=== PATIENT | male | born 1960 | race Caucasian/White ===

== ENCOUNTER 2020-06-27 07:30 | Inpatient (IN) | payer SELFPAY ==
[~2020-06-27] VITALS: Ht 175.3 cm; Wt 71.4 kg
[~2020-06-27 07:30] MED LIST: ASPI-630 PO; ASPI325T8 PO; ATOR20TA58 PO; MULT-246 PO; OMEG1CAP6 PO; TRAM50TA PO
[2020-07-04] VITALS (9 sets, daily range): BP systolic 126–154; BP diastolic 54–65
[2020-07-04] MEDS ORDERED: HYDROmorphone 2 MG/ML VIAL IVP PRN (06:00)
[2020-07-04] MEDS ORDERED: HEPARIN SODIUM 5,000 UNIT in IV NORMAL SALINE 500ML BAG 500 ML IRR ONE (06:00)
[2020-07-04] MEDS ORDERED: fentaNYL PF VIAL 100 MCG/2 ML VIAL IVP PRN ×2 (06:00)
[2020-07-04] MEDS ORDERED: IV RINGERS,LACTATED 1000ML 1,000 ML IV SCH (06:00)
[2020-07-04] MEDS ORDERED: PROCHLORPERAZINE 10 MG/2 ML VIAL. IVP PRN (06:00)
[2020-07-04] MEDS ORDERED: MORPHINE SULFATE 2 MG/ML VIAL. IVP PRN (06:00)
[2020-07-04] MEDS ORDERED: PROPOFOL 10 MG/ML (20ML) VIAL. IV ONE (06:48)
[2020-07-04] MEDS ORDERED: LIDOCAINE 2% PF 5 ML VIAL. ONE (06:48)
[2020-07-04] MEDS ORDERED: fentaNYL PF VIAL 250 MCG/5 ML VIAL ONE ×2 (06:49→09:17)
[2020-07-04] MEDS ORDERED: ROCURONIUM 50 MG/5 ML VIAL. ONE ×3 (06:50→10:37)
[2020-07-04] MEDS ORDERED: MIDAZOLAM HCL/PF 2 MG/2 ML VIAL. ONE ×2 (07:02→07:10)
[2020-07-04] MEDS ORDERED: SURGICEL FIBRILLAR 1X2 EACH. ONE ×6 (07:05→12:32)
[2020-07-04 07:07] LABS: BASO # 0.1 x10^3/uL (0.0-0.2); BASO % 1 % (0-3); EOS # 0.1 x10^3/uL (0.0-0.7); EOS % 1 % (0-3); HEMATOCRIT 40.6 % (39.0-53.0); HEMOGLOBIN 13.5 g/dL (13.0-17.5); LYMPH # 2.8 x10^3/uL (1.0-4.8); LYMPH % 42 % (24-48); MEAN CORPUSCULAR HEMOGLOBIN 34 pg (25-35); MEAN CORPUSCULAR HGB CONC 33 g/dL (31-37); MEAN CORPUSCULAR VOLUME 101 fL (79-100); MONO # 0.8 x10^3/uL (0.0-1.1); MONO % 11 % (0-9); NEUT % 45 % (31-73); PLATELET COUNT 200 x10^3/uL (140-400); RED BLOOD COUNT 4.04 x10^6/uL (4.30-5.70); RED CELL DISTRIBUTION WIDTH 14.7 % (11.5-14.5); WHITE BLOOD COUNT 6.7 x10^3/uL (4.0-11.0)
[2020-07-04] MEDS ORDERED: LIDOCAINE 1% PF 2 ML VIAL. ONE (07:10)
[2020-07-04] MEDS ORDERED: ROPIVacaine 0.5% PF 20 ML VIAL. ONE ×2 (07:10→07:23)
[2020-07-04 07:14] LABS: CALCIUM 8.9 mg/dL (8.5-10.1); CREATININE 0.9 mg/dL (0.7-1.3); GFR 86.7; POTASSIUM 4.3 mmol/L (3.5-5.1)
[2020-07-04] MEDS ORDERED: HEPARIN SODIUM 10,000 UNIT/10 ML VIAL. ONE (07:15)
[2020-07-04 07:21] LABS: PROTHROMBIN TIME PATIENT 12.9 SEC (11.7-14.0)
[2020-07-04] MEDS ORDERED: IV NORMAL SALINE 1000ML BAG 1,000 ML IV SCH (07:30)
[2020-07-04] MEDS ORDERED: LABETALOL 20 MG/4 ML DISP.SYRIN. IVP PRN (07:30)
[2020-07-04] MEDS ORDERED: NALOXONE 0.4 MG/ML VIAL. IV PRN ×2 (07:30)
[2020-07-04] MEDS ORDERED: 0.9 % SODIUM CHLORIDE 10 ML DISP.SYRIN. IV PRN (07:30)
[2020-07-04] MEDS ORDERED: hydrALAZINE 20 MG/ML VIAL. IVP PRN (07:30)
[2020-07-04] MEDS ORDERED: PROCHLORPERAZINE 10 MG/2 ML VIAL. IV PRN (07:30)
[2020-07-04] MEDS ORDERED: ALBUMIN HUMAN 5% 500 ML IV ONE (08:13)
[2020-07-04] MEDS ORDERED: PHENYLEPHRINE 10 MG/ML VIAL. ONE (08:13)
[2020-07-04] MEDS ORDERED: SEVOFLURANE > 120 MINUTES. IH ONE (08:13)
[2020-07-04] MEDS ORDERED: GLYCOPYRROLATE 1 MG/5 ML VIAL. ONE (09:06)
[2020-07-04] MEDS ORDERED: NEOSTIGMINE METHYLSULFATE 5 MG/5 ML SYRINGE. ONE (11:20)
[2020-07-04] MEDS ORDERED: PROTAMINE 50 MG/5 ML VIAL. IV ONE ×2 (11:27→12:04)
[2020-07-04] MEDS ORDERED: HEPARIN for IV BOLUS 10,000 UNIT/10 ML VIAL. ONE (11:42)
[2020-07-04] MEDS ORDERED: ceFAZolin SODIUM IV Push 1 GM VIAL. IVP ONE (12:02)
--- NOTE | 2020-07-04 13:23 | PDOC ---
BRIEF OPERATIVE NOTE Date: Jul 04, 2020 Pre-Op Diagnosis Aorta iliac occlusive disease left leg ischemia Post-Op Diagnosis same Procedure Performed Aortobifemoral bypass with 16X8mm gortex graft Suprarenal clamp above right renal artery and left accessory artery Reimplantation of inferior mesenteric artery Right femoral endarterectomy Surgeon Dr. Kahn Supervisor Product Inspection Yohana Frausto NP Anesthesia Type: General Blood Loss 1680cc with 745 cell saver return Specimens Obtained none Findings Severe aortic stenosis with mural thrombus Complications none, stable to PACU Operative Note see dictated note for additional information YOHANA FRAUSTO APRN Jul 04, 2020 13:23
[2020-07-04 14:01] LABS: HEMATOCRIT 37.6 % (39.0-53.0); HEMOGLOBIN 12.4 g/dL (13.0-17.5); RED BLOOD COUNT 3.73 x10^6/uL (4.30-5.70); RED CELL DISTRIBUTION WIDTH 14.9 % (11.5-14.5); WHITE BLOOD COUNT 8.6 x10^3/uL (4.0-11.0)
--- NOTE | 2020-07-04 14:01 | RAD ---
XR CHEST 1V History: Reason: CENTRAL LINE PLACEMENT / Spl. Instructions: / History: Comparison: None. Technique: Portable AP chest radiograph. Findings: Tubes/lines: Right internal jugular central venous catheter tip terminates at the lower SVC. Enteric tube courses below the left hemidiaphragm off the margin of the radiograph. Lungs: Adequate inflation, no consolidation. Pleural Spaces: No effusion or pneumothorax. Cardiac Silhouette: Normal. Pulmonary Vasculature: Normal. Osseous Structures and Other: Surgical clips at the midline upper abdomen. Impression: 1. Tubes and lines as above. No pneumothorax. Electronically signed by: Colt Amor MD (07/04/2020 1:59 PM) [facility]
[2020-07-04] MEDS: IV NORMAL SALINE 1000ML BAG 1,000 ML IV SCH ×3 (14:10→20:49)
[2020-07-04 14:20] LABS: CALCIUM 7.1 mg/dL (8.5-10.1); GFR 76.7; POTASSIUM 4.6 mmol/L (3.5-5.1)
[2020-07-04 14:21] LABS: PROTHROMBIN TIME PATIENT 15.1 SEC (11.7-14.0)
[2020-07-04] MEDS ORDERED: MEPERIDINE PF 25 MG/ML VIAL. ONE (14:29)
--- NOTE | 2020-07-04 14:42 | OP ---
DATE OF SURGERY: 07/04/2020 SURGEON: Doreen Kahn MD SISAL OPERATOR: Mary Lanza APRN PREOPERATIVE DIAGNOSES: 1. 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 2. Completely thrombosed infrarenal abdominal aorta and small aortic aneurysm. 3. Right common femoral artery, severe atherosclerotic disease and stenosis. POSTOPERATIVE DIAGNOSES: 1. 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 2. Completely thrombosed infrarenal abdominal aorta and small aortic aneurysm. 3. Right common femoral artery, se OPERATIONS PERFORMED: 1. Infrarenal abdominal aortic to bifemoral artery bypass graft using a 16 x 8 mm Propaten PTFE graft. 2. Suprarenal clamping above the right renal artery and the left accessory renal artery was required for this bypass. 3. Right common femoral artery endarterectomy. 4. Reimplantation of the inferior mesenteric artery into the side of the PTFE graft. 5. The left groin was a redo exposure. BLOOD LOSS: 1630 with 745 mL of blood given back with Cell Saver. INDICATIONS: The patient is a 59-year-old male with a long history of severe peripheral arterial disease, who has previously undergone a left femoral endarterectomy with left leg thrombectomy and bilateral iliac artery stenting. He recently presented to the hospital with ischemic rest pain to his bilateral lower extremities. 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 He has severe disease throughout his right common and external iliac artery as well. He also has significant atherosclerotic disease of the right common femoral artery. The thrombosis of the abdominal aorta went all the way up to the level of the right renal artery. I recommend an aortic to bifemoral artery bypass graft. He will need likely suprarenal clamping for this bypass and likely right femoral endarterectomy, possible left femoral endarterectomy as well. Informed consent was obtained including the risks of bleeding, infection, bypass graft failure, need for revision in the future, possible worsening renal insufficiency because of the suprarenal clamping, possible bowel ischemia and possible need for further revascularization in the future. ANESTHESIA USED: General anesthesia. DETAILS OF THE OPERATION: The patient was brought to the operating room and placed on table in the supine position. He received general anesthesia monitored throughout the case by the anesthesiologist. An arterial line in his left wrist and central venous line were placed along with an epidural catheter before the procedure started. We prepped from the nipple line down to the knees and draped the patient. We began by making longitudinal incisions in the right and left groins. We dissected down through the subcutaneous tissue down to the femoral vessels. In the left groin, there was copious amount of scar tissue from previous endarterectomy. I dissected out the common femoral artery up to the area of the inguinal ligament and distally dissected out the profunda artery and superficial femoral artery. Vessel loops were placed around these vessels. Proximally, I dissected out under the inguinal ligament and a large crossing vein was ligated with silk ties, clips and divided, so we can make a nice tract on top of the iliac artery up towards the abdomen. The femoral artery on the left was soft with no significant calcification in the wall. The vessels in the right groin, we dissected out the common femoral artery, which was heavily calcified. We dissected out the superficial femoral artery and profunda artery, which were both soft and placed vessel loops around them. We dissected proximally up under the inguinal ligament and there was too large arterial branches, which vessel loops were placed around. There was also a large crossing vein branch, which was ligated with silk ties, clips and divided. We made our tract on top of the iliac artery up towards the abdomen. We then packed the groins with antibiotic-soaked gauze. We then made a generous midline abdominal incision. We dissected down through the subcutaneous tissue down to the fascia. The proximal fascia was incised longitudinally and we entered the peritoneal cavity. The fascia was opened along the length of the incision. We explored the abdomen. The bowel was healthy. There were no large masses or tumors seen. We mobilized the small bowel into the right peritoneal cavity and a transverse colon superiorly. We identified the duodenum. Omni retractors were placed for this exposure. The duodenum was dissected and taken down laterally to expose the abdominal aorta. We could visualize the small aortic aneurysm in the mid to distal aorta. We dissected proximally up the aortic neck up into the crossing renal vein. We dissected under the renal vein and using Omni retractors to retract this proximally exposing the more proximal abdominal aorta. The right renal artery was the lowest renal artery. It was a good size and soft. We placed a vessel loop around it. The left renal artery was much higher at the level of the superior mesenteric artery. The aorta just below the left renal artery was soft and without significant calcification. There was a lower left accessory renal artery, which we placed a vessel loop around. I felt it would be amenable to clamp above the right renal artery and below the left main renal artery during our clamp time. We then dissected more distally, we dissected out the inferior mesenteric artery and placed a vessel loop around it, it was a very sizable artery and it was patent on the CT scan; therefore, we planned reimplantation. We dissected the distal abdominal aorta down to the bifurcation and the left and right iliac arteries were dissected out anteriorly. We started our tunnel to the groins. The distal abdominal aorta was heavily calcified, but we thought it would be able to be clamped at this location for distal control, even though there applied to be very little backbleeding from the iliac vessels. We then made a tunnel from the groins just on top of the iliac arteries up to the abdomen and pulled umbilical tape through the left and right groins for our tunnel tracts. We then heparinized with 7000 units of heparin. After 3 minutes, we then clamped the distal abdominal aorta followed by the proximal aortic neck, again just above the right renal artery and below the left main renal artery. We pulled up on our renal artery vessel loops and then clamped the aorta. We were able to completely clamp. There was no pulse in the abdominal aorta. We made a longitudinal incision through the abdominal aorta, opening it up to just below the left accessory renal artery distally down to above the bifurcation. There was copious amounts of mural thrombus filling the lumen of the vessel, which was removed. There was also heavy calcification, we performed an endarterectomy removing this calcification off the abdominal back wall. There were several large lumbar vessels, which we oversewed with 2-0 silk sutures to control bleeding. Proximally, we transected the abdominal aorta below the right renal artery and below the left accessory renal artery. We removed mural thrombus from the lumen of the neck. After doing so, the right renal artery lumen was widely patent. We backbled this vessel and backbled very nicely. There was no residual significant plaque or thrombus in the neck. A 16 x 8 mm Propaten PTFE graft was chosen. We cut this to length. We performed an end-to-end anastomosis between the aortic neck and the graft using running HS-5 Prolene suture. After finishing this anastomosis, we backbled the renal arteries and reclamped. We then removed the clamp off the abdominal aorta. There was pulsatile blood flow through the end of the graft and we clamped the graft and restored blood flow to the renal artery. There was good hemostasis within the aortic neck. We then brought the right and left limbs of the graft down through our tunnels just on top of the iliac vessels to the groins. Prior to doing this, we did oversew the distal stump of the abdominal aorta with 2 layers of running 3-0 Prolene suture. There was very little backbleeding from this, but after we did endarterectomize it, there was a small amount of bleeding and we oversew this stump. We then first treated the left groin. We clamped the proximal and distal femoral vessels. We performed a longitudinal arteriotomy in the anterior wall of the common femoral artery extending it down to the superficial femoral artery. There was mural thrombus in the posterior aspect of the vessel, which was endarterectomized removing the thrombus, so there was no further debris or thrombus within the lumen. The profunda artery and superficial femoral arteries were widely patent with good backbleeding. We did run a #3 Mk embolectomy catheter down the superficial femoral artery. It ran all the way through the length of the leg pulled back and there was no thrombus removed. We cut the graft to length and spatulated it. We performed an end-to-side anastomosis using running HS-7 Prolene suture between the open common femoral artery and the PTFE graft. Prior to finishing this, we backbled the vessels. We flushed through the proximal iliac limb, which had pulsatile blood flow, then finished the anastomosis and we restored blood flow to the left leg. There was strong dopplerable flow in the distal vessels. In the right groin, we then clamped the proximal common femoral artery, profunda artery and superficial femoral artery. We made a longitudinal arteriotomy in the artery, extending it approximately 2 cm down the superficial femoral artery. There was copious amounts of dense plaque within this vessel. We performed an extensive endarterectomy of the common femoral artery. We removed a small amount of plaque from the origin of the profunda artery, but it was widely patent with good backbleeding and then we removed a small amount of plaque from the origin of the superficial femoral artery and endarterectomized and there was no residual significant plaque. We tacked the distal edge of the endarterectomized plane on the superficial femoral artery down on the posterior wall with interrupted 7-0 Prolene sutures. We then cut our PTFE graft to length and spatulated it. We performed an end-to-side anastomosis between the graft and the open common femoral artery with running HS-7 Prolene suture. Prior to finishing this, we backbled the distal vessels. There was pulsatile inflow through the graft. We finished the anastomosis and restored blood flow. There was good dopplerable flow in the distal vessels. The groins were packed. We went back to the abdomen. The inferior mesenteric artery had pulsatile backbleeding from the vessel, but I did feel it best that we reimplanted to the graft to preserve maximum flow in this mesenteric circulation. We therefore cut a circular patch out of the end of the inferior mesenteric artery and mobilized this artery over to the area of the PTFE graft. We clamped the side of the graft to continue blood flow to the lower extremities and cut out a circular hole in the graft and performed an end-to-side anastomosis between the inferior mesenteric artery and the PTFE graft with running HS-7 Prolene suture. After finishing this anastomosis, we restored blood flow and there was strong dopplerable flow within the inferior mesenteric artery. We irrigated the groins and the abdomen with copious amounts of saline. We reversed with 50 mg of protamine. When the groins were dry, we left fibrillar over the vessels and we closed with 2 layers of 2-0 Vicryl suture and 4-0 Vicryl subcuticular suture in the skin. In the abdomen, we explored our anastomoses. They were all without significant bleeding and dry. The posterior wall of the aortic wall did have some bleeding from one of the lumbar arteries, which was oversewed again with a silk suture controlling this bleeding. The distal stump of the aorta was nice and dry with no backbleeding. We irrigated again. We placed fibrillar around the vessels and the anastomosis. When there was good hemostasis, we then closed the peritoneal tissue over the aorta and the PTFE graft with running 2-0 Vicryl suture to have it completely covered and away from the bowel. We then removed all our retractors and laps, which returned the bowel to the belly and the bowel was pink and healthy. The colon was also pink and healthy. The nasogastric tube was within the stomach. The omentum was left over the bowel. We then closed the fascia with running looped 0 PDS suture and closed the skin with jon. Sterile dressings were placed. At the end of the case, he had strong dopplerable flow at the dorsalis pedis and posterior tibial location in the feet. He will be taken to the Intensive Care Unit for further monitoring and care. Mary Lanza was scrubbed throughout the entire length of the case. SPECIMEN REMOVED: None. DOREEN KAHN MD DR: LYDIA/nohelia JOB#: [id number] / [id number]
[2020-07-04] MEDS: NORMAL SALINE 35 ML, fentaNYL PF VIAL 250 MCG, ROPIVacaine 0.5% PF 10 ML in EPIDURAL 50 TV EPID PRN (14:44)
[2020-07-04] MEDS ORDERED: MEPERIDINE PF 25 MG/ML VIAL. IV ONE (14:45)
--- NOTE | 2020-07-04 17:09 | PDOC ---
PULMONARY PROGRESS NOTES DATE: 07/04/20 TIME: 17:05 Comments PAST MEDICAL HISTORY Cardiovascular: Other (PAD) Pulmonary: No pertinent hx CENTRAL NERVOUS SYSTEM: Periperal neuropathy GI: No pertinent hx Heme/Onc: No pertinent hx Hepatobiliary: No pertinent hx Psych: No pertinent hx Musculoskeletal: Osteoarthritis Rheumatologic: No pertinent hx Infectious disease: No pertinent hx ENT: No pertinent hx Renal/: No pertinent hx Endocrine: No pertinent hx Dermatology: No pertinent hx PAST SURGICAL HISTORY Past Surgical History: Other (bilateral iliac stents in 2011) Vitals Vital Signs Date Time Temp Pulse Resp B/P (MAP) Pulse Ox O2 Delivery O2 Flow Rate FiO2 07/04/20 15:45 97.0 65 20 134/78 100 Nasal Cannula 2 97.0 Lungs: Clear Labs Laboratory Tests Test 07/04/20 06:30 07/04/20 13:40 White Blood Count 6.7 x10^3/uL (4.0-11.0) 8.6 x10^3/uL (4.0-11.0) Red Blood Count 4.04 x10^6/uL (4.30-5.70) 3.73 x10^6/uL (4.30-5.70) Hemoglobin 13.5 g/dL (13.0-17.5) 12.4 g/dL (13.0-17.5) Hematocrit 40.6 % (39.0-53.0) 37.6 % (39.0-53.0) Mean Corpuscular Volume 101 fL (79-100) 101 fL (79-100) Mean Corpuscular Hemoglobin 34 pg (25-35) 33 pg (25-35) Mean Corpuscular Hemoglobin Concent 33 g/dL (31-37) 33 g/dL (31-37) Red Cell Distribution Width 14.7 % (11.5-14.5) 14.9 % (11.5-14.5) Platelet Count 200 x10^3/uL (140-400) 147 x10^3/uL (140-400) Neutrophils (%) (Auto) 45 % (31-73) Lymphocytes (%) (Auto) 42 % (24-48) Monocytes (%) (Auto) 11 % (0-9) Eosinophils (%) (Auto) 1 % (0-3) Basophils (%) (Auto) 1 % (0-3) Neutrophils # (Auto) 3.0 x10^3/uL (1.8-7.7) Lymphocytes # (Auto) 2.8 x10^3/uL (1.0-4.8) Monocytes # (Auto) 0.8 x10^3/uL (0.0-1.1) Eosinophils # (Auto) 0.1 x10^3/uL (0.0-0.7) Basophils # (Auto) 0.1 x10^3/uL (0.0-0.2) Prothrombin Time 12.9 SEC (11.7-14.0) 15.1 SEC (11.7-14.0) Prothromb Time International Ratio 1.0 (0.8-1.1) 1.2 (0.8-1.1) Activated Partial Thromboplast Time 27 SEC (24-38) 32 SEC (24-38) Sodium Level 138 mmol/L (136-145) 140 mmol/L (136-145) Potassium Level 4.3 mmol/L (3.5-5.1) 4.6 mmol/L (3.5-5.1) Chloride Level 105 mmol/L (98-107) 111 mmol/L (98-107) Carbon Dioxide Level 26 mmol/L (21-32) 22 mmol/L (21-32) Anion Gap 7 (6-14) 7 (6-14) Blood Urea Nitrogen 12 mg/dL (8-26) 12 mg/dL (8-26) Creatinine 0.9 mg/dL (0.7-1.3) 1.0 mg/dL (0.7-1.3) Estimated GFR (Cockcroft-Gault) 86.7 76.7 Glucose Level 99 mg/dL (70-99) 115 mg/dL (70-99) Calcium Level 8.9 mg/dL (8.5-10.1) 7.1 mg/dL (8.5-10.1) Laboratory Tests Test 07/04/20 06:30 07/04/20 13:40 White Blood Count 6.7 x10^3/uL (4.0-11.0) 8.6 x10^3/uL (4.0-11.0) Red Blood Count 4.04 x10^6/uL (4.30-5.70) 3.73 x10^6/uL (4.30-5.70) Hemoglobin 13.5 g/dL (13.0-17.5) 12.4 g/dL (13.0-17.5) Hematocrit 40.6 % (39.0-53.0) 37.6 % (39.0-53.0) Mean Corpuscular Volume 101 fL (79-100) 101 fL (79-100) Mean Corpuscular Hemoglobin 34 pg (25-35) 33 pg (25-35) Mean Corpuscular Hemoglobin Concent 33 g/dL (31-37) 33 g/dL (31-37) Red Cell Distribution Width 14.7 % (11.5-14.5) 14.9 % (11.5-14.5) Platelet Count 200 x10^3/uL (140-400) 147 x10^3/uL (140-400) Neutrophils (%) (Auto) 45 % (31-73) Lymphocytes (%) (Auto) 42 % (24-48) Monocytes (%) (Auto) 11 % (0-9) Eosinophils (%) (Auto) 1 % (0-3) Basophils (%) (Auto) 1 % (0-3) Neutrophils # (Auto) 3.0 x10^3/uL (1.8-7.7) Lymphocytes # (Auto) 2.8 x10^3/uL (1.0-4.8) Monocytes # (Auto) 0.8 x10^3/uL (0.0-1.1) Eosinophils # (Auto) 0.1 x10^3/uL (0.0-0.7) Basophils # (Auto) 0.1 x10^3/uL (0.0-0.2) Prothrombin Time 12.9 SEC (11.7-14.0) 15.1 SEC (11.7-14.0) Prothromb Time International Ratio 1.0 (0.8-1.1) 1.2 (0.8-1.1) Activated Partial Thromboplast Time 27 SEC (24-38) 32 SEC (24-38) Sodium Level 138 mmol/L (136-145) 140 mmol/L (136-145) Potassium Level 4.3 mmol/L (3.5-5.1) 4.6 mmol/L (3.5-5.1) Chloride Level 105 mmol/L (98-107) 111 mmol/L (98-107) Carbon Dioxide Level 26 mmol/L (21-32) 22 mmol/L (21-32) Anion Gap 7 (6-14) 7 (6-14) Blood Urea Nitrogen 12 mg/dL (8-26) 12 mg/dL (8-26) Creatinine 0.9 mg/dL (0.7-1.3) 1.0 mg/dL (0.7-1.3) Estimated GFR (Cockcroft-Gault) 86.7 76.7 Glucose Level 99 mg/dL (70-99) 115 mg/dL (70-99) Calcium Level 8.9 mg/dL (8.5-10.1) 7.1 mg/dL (8.5-10.1) Medications Active Scripts Medications Dose Route/Sig Max Daily Dose Days Date Category Aspirin 325 Mg Tablet 325 Mg PO [id number] 30 06/21/20 Rx Atorvastatin Calcium 20 Mg Tablet 40 Mg PO QHS 30 06/21/20 Rx Impression . CHART REVIEWED SPOKE ABRAN ZHONG S/P SURGERY SEE BELOW VITALS SIGN STABLE PT ON RA WILL OBTAIN AM LABS AND CXR SURGEON: Doreen Kahn MD GRAPHIC DESIGN SPECIALIST: Mary Lanza APRN PREOPERATIVE DIAGNOSES: 1. 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 2. Completely thrombosed infrarenal abdominal aorta and small aortic aneurysm. 3. Right common femoral artery, severe atherosclerotic disease and stenosis. POSTOPERATIVE DIAGNOSES: 1. 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 2. Completely thrombosed infrarenal abdominal aorta and small aortic aneurysm. 3. Right common femoral artery, se OPERATIONS PERFORMED: 1. Infrarenal abdominal aortic to bifemoral artery bypass graft using a 16 x 8 mm Propaten PTFE graft. 2. Suprarenal clamping above the right renal artery and the left accessory renal artery was required for this bypass. 3. Right common femoral artery endarterectomy. 4. Reimplantation of the inferior mesenteric artery into the side of the PTFE graft. 5. The left groin was a redo exposure. BLOOD LOSS: 1630 with 745 mL of blood given back with Cell Saver. INDICATIONS: The patient is a 59-year-old male with a long history of severe peripheral arterial disease, who has previously undergone a left femoral endarterectomy with left leg thrombectomy and bilateral iliac artery stenting. He recently presented to the hospital with ischemic rest pain to his bilateral lower extremities. 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 He has severe disease throughout his right common and external iliac artery as well. He also has significant atherosclerotic disease of the right common femoral artery. The thrombosis of the abdominal aorta went all the way up to the level of the right renal artery. I recommend an aortic to bifemoral artery bypass graft. He will need likely suprarenal clamping for this bypass and likely right femoral endarterectomy, possible left femoral endarterectomy as well. Informed consent was obtained including the risks of bleeding, infection, bypass graft failure, need for revision in the future, possible worsening renal insufficiency because of the suprarenal clamping, possible bowel ischemia and possible need for further revascularization in the future. PACHECO BATISTA MD Jul 04, 2020 17:09
[2020-07-04] MEDS ORDERED: ceFAZolin SODIUM IV Push 1 GM VIAL. IVP SCH (18:00)
[2020-07-04] MEDS: MORPHINE SULFATE 2 MG/ML VIAL. IV PRN (18:25)
[2020-07-04 19:29] LABS: BASO % 0 % (0-3); EOS % 0 % (0-3); HEMATOCRIT 37.1 % (39.0-53.0); HEMOGLOBIN 12.4 g/dL (13.0-17.5); LYMPH # 0.9 x10^3/uL (1.0-4.8); LYMPH % 9 % (24-48); MEAN CORPUSCULAR HEMOGLOBIN 33 pg (25-35); MEAN CORPUSCULAR HGB CONC 33 g/dL (31-37); MEAN CORPUSCULAR VOLUME 100 fL (79-100); MONO # 0.7 x10^3/uL (0.0-1.1); MONO % 7 % (0-9); NEUT # 8.6 x10^3/uL (1.8-7.7); NEUT % 85 % (31-73); PLATELET COUNT 146 x10^3/uL (140-400); RED BLOOD COUNT 3.71 x10^6/uL (4.30-5.70); RED CELL DISTRIBUTION WIDTH 14.8 % (11.5-14.5); WHITE BLOOD COUNT 10.2 x10^3/uL (4.0-11.0)
[2020-07-04 19:40] LABS: CALCIUM 7.4 mg/dL (8.5-10.1); CREATININE 1.1 mg/dL (0.7-1.3); GFR 68.8; POTASSIUM 4.4 mmol/L (3.5-5.1)
--- NOTE | 2020-07-04 20:00 | NUR ---
Patient has Left Radial arterial line for close BP monitoring and lab draw. BP will be documented hourly under Vital sign intervention and Q4HRS under Arterial line intervention to avoid double charging. Addendum: 07/04/20 at 2146 by SERGEY FIGUEROA RN Amended: Links added.
[2020-07-04] MEDS: ceFAZolin SODIUM IV Push 1 GM VIAL. IVP SCH (20:26)
[2020-07-04] MEDS: FAMOTIDINE 20 MG/2 ML VIAL IVP SCH (20:38)
[2020-07-05] VITALS (17 sets, daily range): BP systolic 111–152; BP diastolic 64–84
[2020-07-05] MEDS: NORMAL SALINE 35 ML, fentaNYL PF VIAL 250 MCG, ROPIVacaine 0.5% PF 10 ML in EPIDURAL 50 TV EPID PRN ×4 (00:57→20:35)
[2020-07-05] MEDS: IV NORMAL SALINE 1000ML BAG 1,000 ML IV SCH ×3 (03:38→18:18)
[2020-07-05] MEDS: ceFAZolin SODIUM IV Push 1 GM VIAL. IVP SCH (03:40)
--- NOTE | 2020-07-05 04:00 | NUR ---
Patient continues to complain of surgical incisional pain even after Fentanyl/Ropivacaine Epidural increased to 10CC/HR at 0300. Patient states pain is 8/10, sharp stabbing and continuous, paged [employer]PER[employer]OR. VIANCA Hurtado, returned page, notified of aboved; orders received to give Epidural bolus of 5CC now. Epidural bolus administered and ar 0400 patient reports pain mc improved, now 1/10 on umeric pain scale. See pain scale, orders.
[2020-07-05 06:22] LABS: BASO % 0 % (0-3); EOS % 0 % (0-3); HEMATOCRIT 35.8 % (39.0-53.0); HEMOGLOBIN 11.9 g/dL (13.0-17.5); LYMPH % 18 % (24-48); MEAN CORPUSCULAR HEMOGLOBIN 33 pg (25-35); MEAN CORPUSCULAR HGB CONC 33 g/dL (31-37); MEAN CORPUSCULAR VOLUME 101 fL (79-100); MONO # 1.5 x10^3/uL (0.0-1.1); MONO % 13 % (0-9); NEUT # 7.8 x10^3/uL (1.8-7.7); NEUT % 69 % (31-73); PLATELET COUNT 138 x10^3/uL (140-400); RED BLOOD COUNT 3.55 x10^6/uL (4.30-5.70); WHITE BLOOD COUNT 11.3 x10^3/uL (4.0-11.0)
[2020-07-05 06:39] LABS: ALBUMIN 2.5 g/dL (3.4-5.0); ALBUMIN/GLOBULIN RATIO 1.1 (1.0-1.7); CALCIUM 7.3 mg/dL (8.5-10.1); GFR 76.7; MAGNESIUM 1.8 mg/dL (1.8-2.4); POTASSIUM 4.1 mmol/L (3.5-5.1); TOTAL BILIRUBIN 0.5 mg/dL (0.2-1.0); TOTAL PROTEIN 4.8 g/dL (6.4-8.2)
--- NOTE | 2020-07-05 07:07 | RAD ---
Study: XR CHEST 1V Indication: Shortness of air. Comparison: 07/04/2020 Findings: Right IJ central venous catheter tip terminates within the SVC. Enteric tube tip is below the inferio r field of view. Unchanged cardiomediastinal silhouette, cyrus and lungs. No increasing effusion or pneumothorax. Impression: Unchanged support device positioning. No newly seen abnormality of the chest. Electronically signed by: JAY SALAZAR MD (07/05/2020 7:04 AM) [facility]
[2020-07-05] MEDS: ELECTROLYTE (ICU) PROTOCOL. MC SCH (08:45)
[2020-07-05] MEDS: ASPIRIN 325 MG TABLET PO ONE ×2 (09:00→10:19)
[2020-07-05] MEDS: FAMOTIDINE 20 MG/2 ML VIAL IVP SCH ×2 (10:19→20:32)
[2020-07-05] MEDS: MORPHINE SULFATE 2 MG/ML VIAL. IV PRN ×5 (11:11→21:33)
--- NOTE | 2020-07-05 11:41 | PDOC ---
PULMONARY PROGRESS NOTES DATE: 07/05/20 TIME: 11:39 Subjective Patient at times wheezing not more short of air currently on 2 L of oxygen continues to have discomfort secondary to recent surgery. Comments PAST MEDICAL HISTORY Cardiovascular: Other (PAD) Pulmonary: No pertinent hx CENTRAL NERVOUS SYSTEM: Periperal neuropathy GI: No pertinent hx Heme/Onc: No pertinent hx Hepatobiliary: No pertinent hx Psych: No pertinent hx Musculoskeletal: Osteoarthritis Rheumatologic: No pertinent hx Infectious disease: No pertinent hx ENT: No pertinent hx Renal/: No pertinent hx Endocrine: No pertinent hx Dermatology: No pertinent hx PAST SURGICAL HISTORY Past Surgical History: Other (bilateral iliac stents in 2011) Vitals Vital Signs Date Time Temp Pulse Resp B/P (MAP) Pulse Ox O2 Delivery O2 Flow Rate FiO2 07/05/20 10:00 82 138/79 (98) 97 Room Air 07/05/20 09:00 98.1 98.1 07/05/20 07:00 18 07/05/20 04:00 2.0 ROS: No Nausea, No Increase Cough General: Alert Lungs: Wheezing Cardiovascular: S1, S2 Abdomen: Other (Dressing in place) Neuro Exam: Alert Extremities: No Edema Skin: Warm Labs Laboratory Tests Test 07/04/20 06:30 07/04/20 13:40 07/04/20 19:15 07/05/20 06:16 White Blood Count 6.7 x10^3/uL (4.0-11.0) 8.6 x10^3/uL (4.0-11.0) 10.2 x10^3/uL (4.0-11.0) 11.3 x10^3/uL (4.0-11.0) Red Blood Count 4.04 x10^6/uL (4.30-5.70) 3.73 x10^6/uL (4.30-5.70) 3.71 x10^6/uL (4.30-5.70) 3.55 x10^6/uL (4.30-5.70) Hemoglobin 13.5 g/dL (13.0-17.5) 12.4 g/dL (13.0-17.5) 12.4 g/dL (13.0-17.5) 11.9 g/dL (13.0-17.5) Hematocrit 40.6 % (39.0-53.0) 37.6 % (39.0-53.0) 37.1 % (39.0-53.0) 35.8 % (39.0-53.0) Mean Corpuscular Volume 101 fL (79-100) 101 fL (79-100) 100 fL (79-100) 101 fL (79-100) Mean Corpuscular Hemoglobin 34 pg (25-35) 33 pg (25-35) 33 pg (25-35) 33 pg (25-35) Mean Corpuscular Hemoglobin Concent 33 g/dL (31-37) 33 g/dL (31-37) 33 g/dL (31-37) 33 g/dL (31-37) Red Cell Distribution Width 14.7 % (11.5-14.5) 14.9 % (11.5-14.5) 14.8 % (11.5-14.5) 15.0 % (11.5-14.5) Platelet Count 200 x10^3/uL (140-400) 147 x10^3/uL (140-400) 146 x10^3/uL (140-400) 138 x10^3/uL (140-400) Neutrophils (%) (Auto) 45 % (31-73) 85 % (31-73) 69 % (31-73) Lymphocytes (%) (Auto) 42 % (24-48) 9 % (24-48) 18 % (24-48) Monocytes (%) (Auto) 11 % (0-9) 7 % (0-9) 13 % (0-9) Eosinophils (%) (Auto) 1 % (0-3) 0 % (0-3) 0 % (0-3) Basophils (%) (Auto) 1 % (0-3) 0 % (0-3) 0 % (0-3) Neutrophils # (Auto) 3.0 x10^3/uL (1.8-7.7) 8.6 x10^3/uL (1.8-7.7) 7.8 x10^3/uL (1.8-7.7) Lymphocytes # (Auto) 2.8 x10^3/uL (1.0-4.8) 0.9 x10^3/uL (1.0-4.8) 2.0 x10^3/uL (1.0-4.8) Monocytes # (Auto) 0.8 x10^3/uL (0.0-1.1) 0.7 x10^3/uL (0.0-1.1) 1.5 x10^3/uL (0.0-1.1) Eosinophils # (Auto) 0.1 x10^3/uL (0.0-0.7) 0.0 x10^3/uL (0.0-0.7) 0.0 x10^3/uL (0.0-0.7) Basophils # (Auto) 0.1 x10^3/uL (0.0-0.2) 0.0 x10^3/uL (0.0-0.2) 0.0 x10^3/uL (0.0-0.2) Prothrombin Time 12.9 SEC (11.7-14.0) 15.1 SEC (11.7-14.0) Prothromb Time International Ratio 1.0 (0.8-1.1) 1.2 (0.8-1.1) Activated Partial Thromboplast Time 27 SEC (24-38) 32 SEC (24-38) Sodium Level 138 mmol/L (136-145) 140 mmol/L (136-145) 141 mmol/L (136-145) 139 mmol/L (136-145) Potassium Level 4.3 mmol/L (3.5-5.1) 4.6 mmol/L (3.5-5.1) 4.4 mmol/L (3.5-5.1) 4.1 mmol/L (3.5-5.1) Chloride Level 105 mmol/L (98-107) 111 mmol/L (98-107) 110 mmol/L (98-107) 109 mmol/L (98-107) Carbon Dioxide Level 26 mmol/L (21-32) 22 mmol/L (21-32) 22 mmol/L (21-32) 22 mmol/L (21-32) Anion Gap 7 (6-14) 7 (6-14) 9 (6-14) 8 (6-14) Blood Urea Nitrogen 12 mg/dL (8-26) 12 mg/dL (8-26) 16 mg/dL (8-26) 18 mg/dL (8-26) Creatinine 0.9 mg/dL (0.7-1.3) 1.0 mg/dL (0.7-1.3) 1.1 mg/dL (0.7-1.3) 1.0 mg/dL (0.7-1.3) Estimated GFR (Cockcroft-Gault) 86.7 76.7 68.8 76.7 Glucose Level 99 mg/dL (70-99) 115 mg/dL (70-99) 121 mg/dL (70-99) 113 mg/dL (70-99) Calcium Level 8.9 mg/dL (8.5-10.1) 7.1 mg/dL (8.5-10.1) 7.4 mg/dL (8.5-10.1) 7.3 mg/dL (8.5-10.1) BUN/Creatinine Ratio 18 (6-20) Magnesium Level 1.8 mg/dL (1.8-2.4) Total Bilirubin 0.5 mg/dL (0.2-1.0) Aspartate Amino Transf (AST/SGOT) 31 U/L (15-37) Alanine Aminotransferase (ALT/SGPT) 26 U/L (16-63) Alkaline Phosphatase 41 U/L (46-116) Total Protein 4.8 g/dL (6.4-8.2) Albumin 2.5 g/dL (3.4-5.0) Albumin/Globulin Ratio 1.1 (1.0-1.7) Laboratory Tests Test 07/04/20 13:40 07/04/20 19:15 07/05/20 06:16 White Blood Count 8.6 x10^3/uL (4.0-11.0) 10.2 x10^3/uL (4.0-11.0) 11.3 x10^3/uL (4.0-11.0) Red Blood Count 3.73 x10^6/uL (4.30-5.70) 3.71 x10^6/uL (4.30-5.70) 3.55 x10^6/uL (4.30-5.70) Hemoglobin 12.4 g/dL (13.0-17.5) 12.4 g/dL (13.0-17.5) 11.9 g/dL (13.0-17.5) Hematocrit 37.6 % (39.0-53.0) 37.1 % (39.0-53.0) 35.8 % (39.0-53.0) Mean Corpuscular Volume 101 fL (79-100) 100 fL (79-100) 101 fL (79-100) Mean Corpuscular Hemoglobin 33 pg (25-35) 33 pg (25-35) 33 pg (25-35) Mean Corpuscular Hemoglobin Concent 33 g/dL (31-37) 33 g/dL (31-37) 33 g/dL (31-37) Red Cell Distribution Width 14.9 % (11.5-14.5) 14.8 % (11.5-14.5) 15.0 % (11.5-14.5) Platelet Count 147 x10^3/uL (140-400) 146 x10^3/uL (140-400) 138 x10^3/uL (140-400) Prothrombin Time 15.1 SEC (11.7-14.0) Prothromb Time International Ratio 1.2 (0.8-1.1) Activated Partial Thromboplast Time 32 SEC (24-38) Sodium Level 140 mmol/L (136-145) 141 mmol/L (136-145) 139 mmol/L (136-145) Potassium Level 4.6 mmol/L (3.5-5.1) 4.4 mmol/L (3.5-5.1) 4.1 mmol/L (3.5-5.1) Chloride Level 111 mmol/L (98-107) 110 mmol/L (98-107) 109 mmol/L (98-107) Carbon Dioxide Level 22 mmol/L (21-32) 22 mmol/L (21-32) 22 mmol/L (21-32) Anion Gap 7 (6-14) 9 (6-14) 8 (6-14) Blood Urea Nitrogen 12 mg/dL (8-26) 16 mg/dL (8-26) 18 mg/dL (8-26) Creatinine 1.0 mg/dL (0.7-1.3) 1.1 mg/dL (0.7-1.3) 1.0 mg/dL (0.7-1.3) Estimated GFR (Cockcroft-Gault) 76.7 68.8 76.7 Glucose Level 115 mg/dL (70-99) 121 mg/dL (70-99) 113 mg/dL (70-99) Calcium Level 7.1 mg/dL (8.5-10.1) 7.4 mg/dL (8.5-10.1) 7.3 mg/dL (8.5-10.1) Neutrophils (%) (Auto) 85 % (31-73) 69 % (31-73) Lymphocytes (%) (Auto) 9 % (24-48) 18 % (24-48) Monocytes (%) (Auto) 7 % (0-9) 13 % (0-9) Eosinophils (%) (Auto) 0 % (0-3) 0 % (0-3) Basophils (%) (Auto) 0 % (0-3) 0 % (0-3) Neutrophils # (Auto) 8.6 x10^3/uL (1.8-7.7) 7.8 x10^3/uL (1.8-7.7) Lymphocytes # (Auto) 0.9 x10^3/uL (1.0-4.8) 2.0 x10^3/uL (1.0-4.8) Monocytes # (Auto) 0.7 x10^3/uL (0.0-1.1) 1.5 x10^3/uL (0.0-1.1) Eosinophils # (Auto) 0.0 x10^3/uL (0.0-0.7) 0.0 x10^3/uL (0.0-0.7) Basophils # (Auto) 0.0 x10^3/uL (0.0-0.2) 0.0 x10^3/uL (0.0-0.2) BUN/Creatinine Ratio 18 (6-20) Magnesium Level 1.8 mg/dL (1.8-2.4) Total Bilirubin 0.5 mg/dL (0.2-1.0) Aspartate Amino Transf (AST/SGOT) 31 U/L (15-37) Alanine Aminotransferase (ALT/SGPT) 26 U/L (16-63) Alkaline Phosphatase 41 U/L (46-116) Total Protein 4.8 g/dL (6.4-8.2) Albumin 2.5 g/dL (3.4-5.0) Albumin/Globulin Ratio 1.1 (1.0-1.7) Medications Active Scripts Medications Dose Route/Sig Max Daily Dose Days Date Category Aspirin 325 Mg Tablet 325 Mg PO [id number] 30 06/21/20 Rx Atorvastatin Calcium 20 Mg Tablet 40 Mg PO QHS 30 06/21/20 Rx Impression . Postop dyspnea, expected, underlying COPD Status post aorto bifemoral artery bypass Peripheral arterial disease Protein malnutrition present upon admission SURGEON: Doreen Kahn MD STER[facility] SUPERVISOR: Mary Lanza APRN PREOPERATIVE DIAGNOSES: 1. 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 2. Completely thrombosed infrarenal abdominal aorta and small aortic aneurysm. 3. Right common femoral artery, severe atherosclerotic disease and stenosis. POSTOPERATIVE DIAGNOSES: 1. 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 2. Completely thrombosed infrarenal abdominal aorta and small aortic aneurysm. 3. Right common femoral artery, se OPERATIONS PERFORMED: 1. Infrarenal abdominal aortic to bifemoral artery bypass graft using a 16 x 8 mm Propaten PTFE graft. 2. Suprarenal clamping above the right renal artery and the left accessory renal artery was required for this bypass. 3. Right common femoral artery endarterectomy. 4. Reimplantation of the inferior mesenteric artery into the side of the PTFE graft. 5. The left groin was a redo exposure. BLOOD LOSS: 1630 with 745 mL of blood given back with Cell Saver. INDICATIONS: The patient is a 59-year-old male with a long history of severe peripheral arterial disease, who has previously undergone a left femoral endarterectomy with left leg thrombectomy and bilateral iliac artery stenting. He recently presented to the hospital with ischemic rest pain to his bilateral lower extremities. 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 He has severe disease throughout his right common and external iliac artery as well. He also has significant atherosclerotic disease of the right common femoral artery. The thrombosis of the abdominal aorta went all the way up to the level of the right renal artery. I recommend an aortic to bifemoral artery bypass graft. He will need likely suprarenal clamping for this bypass and likely right femoral endarterectomy, possible left femoral endarterectomy as well. Informed consent was obtained including the risks of bleeding, infection, bypass graft failure, need for revision in the future, possible worsening renal insufficiency because of the suprarenal clamping, possible bowel ischemia and possible need for further revascularization in the future. Plan . Patient doing well, continue aggressive pulmonary hygiene Incentive spirometry As needed oxygen sats above 90 Bronchodilators DVT prophylaxis. PACHECO BATISTA MD Jul 05, 2020 11:41
[2020-07-05] MEDS ORDERED: ALBUTEROL SULFATE 2.5 MG/3 ML NEBU. NEB PRN ×2 (11:45)
--- NOTE | 2020-07-05 12:21 | PDOC ---
SURGICAL PROGRESS NOTE DATE: 07/05/20 TIME: 12:18 Subjective Patient was seen and examined at the bedside and is doing very well. His pain is overall under good control with the epidural. He has been doing his deep breathing and coughing appropriately. We are going to try to get him out of bed to a bedside chair today. Vital Signs Vital Signs Date Time Temp Pulse Resp B/P (MAP) Pulse Ox O2 Delivery O2 Flow Rate FiO2 07/05/20 11:00 94 129/80 (96) 94 Room Air 07/05/20 09:00 98.1 98.1 07/05/20 07:00 18 07/05/20 04:00 2.0 I&O Intake and Output 07/05/20 07:00 Intake Total 5622 ml Output Total 4310 ml Balance 1312 ml Intake Oral 200 ml IV Total 5422 ml Output Urine Total 2655 ml Gastric Drainage Total 25 ml Estimated Blood Loss 1630 ml General: Alert HEENT: Atraumatic, EOMI Lungs: Clear to auscultation, Normal air movement Heart: Regular rate, Normal S1, Normal S2 Abdomen: Soft, Other (Appropriate incisional tenderness, abdominal incision is dry and intact) Extremities: No edema, Other (Excellent Doppler flow in bilateral lower extremities with brisk capillary refill) Skin: No breakdown, No significant lesion Neuro: Normal speech, Strength at 5/5 X4 ext, Sensation intact, Cranial nerves 3-12 NL Psych/Mental Status: Mental status NL, Mood NL Labs Laboratory Tests Test 07/04/20 06:30 07/04/20 13:40 07/04/20 19:15 07/05/20 06:16 White Blood Count 6.7 x10^3/uL (4.0-11.0) 8.6 x10^3/uL (4.0-11.0) 10.2 x10^3/uL (4.0-11.0) 11.3 x10^3/uL (4.0-11.0) Red Blood Count 4.04 x10^6/uL (4.30-5.70) 3.73 x10^6/uL (4.30-5.70) 3.71 x10^6/uL (4.30-5.70) 3.55 x10^6/uL (4.30-5.70) Hemoglobin 13.5 g/dL (13.0-17.5) 12.4 g/dL (13.0-17.5) 12.4 g/dL (13.0-17.5) 11.9 g/dL (13.0-17.5) Hematocrit 40.6 % (39.0-53.0) 37.6 % (39.0-53.0) 37.1 % (39.0-53.0) 35.8 % (39.0-53.0) Mean Corpuscular Volume 101 fL (79-100) 101 fL (79-100) 100 fL (79-100) 101 fL (79-100) Mean Corpuscular Hemoglobin 34 pg (25-35) 33 pg (25-35) 33 pg (25-35) 33 pg (25-35) Mean Corpuscular Hemoglobin Concent 33 g/dL (31-37) 33 g/dL (31-37) 33 g/dL (31-37) 33 g/dL (31-37) Red Cell Distribution Width 14.7 % (11.5-14.5) 14.9 % (11.5-14.5) 14.8 % (11.5-14.5) 15.0 % (11.5-14.5) Platelet Count 200 x10^3/uL (140-400) 147 x10^3/uL (140-400) 146 x10^3/uL (140-400) 138 x10^3/uL (140-400) Neutrophils (%) (Auto) 45 % (31-73) 85 % (31-73) 69 % (31-73) Lymphocytes (%) (Auto) 42 % (24-48) 9 % (24-48) 18 % (24-48) Monocytes (%) (Auto) 11 % (0-9) 7 % (0-9) 13 % (0-9) Eosinophils (%) (Auto) 1 % (0-3) 0 % (0-3) 0 % (0-3) Basophils (%) (Auto) 1 % (0-3) 0 % (0-3) 0 % (0-3) Neutrophils # (Auto) 3.0 x10^3/uL (1.8-7.7) 8.6 x10^3/uL (1.8-7.7) 7.8 x10^3/uL (1.8-7.7) Lymphocytes # (Auto) 2.8 x10^3/uL (1.0-4.8) 0.9 x10^3/uL (1.0-4.8) 2.0 x10^3/uL (1.0-4.8) Monocytes # (Auto) 0.8 x10^3/uL (0.0-1.1) 0.7 x10^3/uL (0.0-1.1) 1.5 x10^3/uL (0.0-1.1) Eosinophils # (Auto) 0.1 x10^3/uL (0.0-0.7) 0.0 x10^3/uL (0.0-0.7) 0.0 x10^3/uL (0.0-0.7) Basophils # (Auto) 0.1 x10^3/uL (0.0-0.2) 0.0 x10^3/uL (0.0-0.2) 0.0 x10^3/uL (0.0-0.2) Prothrombin Time 12.9 SEC (11.7-14.0) 15.1 SEC (11.7-14.0) Prothromb Time International Ratio 1.0 (0.8-1.1) 1.2 (0.8-1.1) Activated Partial Thromboplast Time 27 SEC (24-38) 32 SEC (24-38) Sodium Level 138 mmol/L (136-145) 140 mmol/L (136-145) 141 mmol/L (136-145) 139 mmol/L (136-145) Potassium Level 4.3 mmol/L (3.5-5.1) 4.6 mmol/L (3.5-5.1) 4.4 mmol/L (3.5-5.1) 4.1 mmol/L (3.5-5.1) Chloride Level 105 mmol/L (98-107) 111 mmol/L (98-107) 110 mmol/L (98-107) 109 mmol/L (98-107) Carbon Dioxide Level 26 mmol/L (21-32) 22 mmol/L (21-32) 22 mmol/L (21-32) 22 mmol/L (21-32) Anion Gap 7 (6-14) 7 (6-14) 9 (6-14) 8 (6-14) Blood Urea Nitrogen 12 mg/dL (8-26) 12 mg/dL (8-26) 16 mg/dL (8-26) 18 mg/dL (8-26) Creatinine 0.9 mg/dL (0.7-1.3) 1.0 mg/dL (0.7-1.3) 1.1 mg/dL (0.7-1.3) 1.0 mg/dL (0.7-1.3) Estimated GFR (Cockcroft-Gault) 86.7 76.7 68.8 76.7 Glucose Level 99 mg/dL (70-99) 115 mg/dL (70-99) 121 mg/dL (70-99) 113 mg/dL (70-99) Calcium Level 8.9 mg/dL (8.5-10.1) 7.1 mg/dL (8.5-10.1) 7.4 mg/dL (8.5-10.1) 7.3 mg/dL (8.5-10.1) BUN/Creatinine Ratio 18 (6-20) Magnesium Level 1.8 mg/dL (1.8-2.4) Total Bilirubin 0.5 mg/dL (0.2-1.0) Aspartate Amino Transf (AST/SGOT) 31 U/L (15-37) Alanine Aminotransferase (ALT/SGPT) 26 U/L (16-63) Alkaline Phosphatase 41 U/L (46-116) Total Protein 4.8 g/dL (6.4-8.2) Albumin 2.5 g/dL (3.4-5.0) Albumin/Globulin Ratio 1.1 (1.0-1.7) Laboratory Tests Test 07/04/20 13:40 07/04/20 19:15 07/05/20 06:16 White Blood Count 8.6 x10^3/uL (4.0-11.0) 10.2 x10^3/uL (4.0-11.0) 11.3 x10^3/uL (4.0-11.0) Red Blood Count 3.73 x10^6/uL (4.30-5.70) 3.71 x10^6/uL (4.30-5.70) 3.55 x10^6/uL (4.30-5.70) Hemoglobin 12.4 g/dL (13.0-17.5) 12.4 g/dL (13.0-17.5) 11.9 g/dL (13.0-17.5) Hematocrit 37.6 % (39.0-53.0) 37.1 % (39.0-53.0) 35.8 % (39.0-53.0) Mean Corpuscular Volume 101 fL (79-100) 100 fL (79-100) 101 fL (79-100) Mean Corpuscular Hemoglobin 33 pg (25-35) 33 pg (25-35) 33 pg (25-35) Mean Corpuscular Hemoglobin Concent 33 g/dL (31-37) 33 g/dL (31-37) 33 g/dL (31-37) Red Cell Distribution Width 14.9 % (11.5-14.5) 14.8 % (11.5-14.5) 15.0 % (11.5-14.5) Platelet Count 147 x10^3/uL (140-400) 146 x10^3/uL (140-400) 138 x10^3/uL (140-400) Prothrombin Time 15.1 SEC (11.7-14.0) Prothromb Time International Ratio 1.2 (0.8-1.1) Activated Partial Thromboplast Time 32 SEC (24-38) Sodium Level 140 mmol/L (136-145) 141 mmol/L (136-145) 139 mmol/L (136-145) Potassium Level 4.6 mmol/L (3.5-5.1) 4.4 mmol/L (3.5-5.1) 4.1 mmol/L (3.5-5.1) Chloride Level 111 mmol/L (98-107) 110 mmol/L (98-107) 109 mmol/L (98-107) Carbon Dioxide Level 22 mmol/L (21-32) 22 mmol/L (21-32) 22 mmol/L (21-32) Anion Gap 7 (6-14) 9 (6-14) 8 (6-14) Blood Urea Nitrogen 12 mg/dL (8-26) 16 mg/dL (8-26) 18 mg/dL (8-26) Creatinine 1.0 mg/dL (0.7-1.3) 1.1 mg/dL (0.7-1.3) 1.0 mg/dL (0.7-1.3) Estimated GFR (Cockcroft-Gault) 76.7 68.8 76.7 Glucose Level 115 mg/dL (70-99) 121 mg/dL (70-99) 113 mg/dL (70-99) Calcium Level 7.1 mg/dL (8.5-10.1) 7.4 mg/dL (8.5-10.1) 7.3 mg/dL (8.5-10.1) Neutrophils (%) (Auto) 85 % (31-73) 69 % (31-73) Lymphocytes (%) (Auto) 9 % (24-48) 18 % (24-48) Monocytes (%) (Auto) 7 % (0-9) 13 % (0-9) Eosinophils (%) (Auto) 0 % (0-3) 0 % (0-3) Basophils (%) (Auto) 0 % (0-3) 0 % (0-3) Neutrophils # (Auto) 8.6 x10^3/uL (1.8-7.7) 7.8 x10^3/uL (1.8-7.7) Lymphocytes # (Auto) 0.9 x10^3/uL (1.0-4.8) 2.0 x10^3/uL (1.0-4.8) Monocytes # (Auto) 0.7 x10^3/uL (0.0-1.1) 1.5 x10^3/uL (0.0-1.1) Eosinophils # (Auto) 0.0 x10^3/uL (0.0-0.7) 0.0 x10^3/uL (0.0-0.7) Basophils # (Auto) 0.0 x10^3/uL (0.0-0.2) 0.0 x10^3/uL (0.0-0.2) BUN/Creatinine Ratio 18 (6-20) Magnesium Level 1.8 mg/dL (1.8-2.4) Total Bilirubin 0.5 mg/dL (0.2-1.0) Aspartate Amino Transf (AST/SGOT) 31 U/L (15-37) Alanine Aminotransferase (ALT/SGPT) 26 U/L (16-63) Alkaline Phosphatase 41 U/L (46-116) Total Protein 4.8 g/dL (6.4-8.2) Albumin 2.5 g/dL (3.4-5.0) Albumin/Globulin Ratio 1.1 (1.0-1.7) Assessment/Plan Status post aortobifemoral bypass with renal endarterectomy postoperative day #1--patient is overall doing very well following aortobifemoral bypass with renal endarterectomy. We will plan on discontinuing the patient's arterial line today. We will transfer the patient to bedside chair and get physical and Occupational Therapy to work with him for ambulation and transferring. The epidural will stay in place and the Wake[place] catheter will stay in place due to the epidural. The nasogastric tube will stay in place to low wall suction. We will replace his calcium. Otherwise his laboratory values are stable and his creatinine is normal and he is making good urine. We will continue n.p.o. and ice chips for now. We will plan on transferring to stepdown unit today. All questions were answered to his satisfaction at the bedside and I discussed the plan with the nursing staff at the bedside. Justicifation of Admission Dx: Justifications for Admission: Justification of Admission Dx: Yes KRISTINA MOSELEY DO Jul 05, 2020 12:21
[2020-07-05] MEDS ORDERED: CALCIUM GLUCONATE 1,000 MG in IV NORMAL SALINE 100ML 100 ML IV ONE (12:30)
[2020-07-05] MEDS ORDERED: ASPIRIN RECTAL 300 MG SUPP. PR ONE (12:30)
--- NOTE | 2020-07-05 16:17 | NUR ---
SS following for discharge planning. SS reviewed pt chart and discussed with pt RN. Pt is from home with spouse and is currently on room air. PT recommended home. SS will continue to follow for discharge planning.
--- NOTE | 2020-07-05 21:23 | CONS ---
DATE OF CONSULTATION: 07/05/2020 ATTENDING PHYSICIAN: Dr. Kahn. REASON FOR CONSULTATION: The patient is seen in pulmonary consultation at the request of Dr. Kahn for critical care management. The patient is status post aortic to bifemoral artery bypass grafting. HISTORY OF PRESENT ILLNESS: The patient is a 59-year-old male that presented with aortoiliac occlusive disease and left leg ischemia. He underwent aortobifemoral bypass along with suprarenal clamping above right renal artery and left accessory artery, reimplantation of an inferior mesenteric artery and right femoral endarterectomy. The patient has a history of tobacco use. He did quit some time approximately 4 weeks ago. He has never been told he has COPD. He is not experiencing any frequent acute exacerbation of COPD. He normally does not wear oxygen or use bronchodilators at home. I was asked to help manage his critical care status. PAST MEDICAL HISTORY: Otherwise remarkable for peripheral arterial disease as described above, previous history of tobacco dependent, quit 3-4 weeks ago. There is a history of previous finger repair. Otherwise, there is no prior history of stroke. He does have a history of cardiac disease. ALLERGIES: PENICILLIN. SOCIAL HISTORY: He is an ex-smoker. Denies any excessive alcohol intake. REVIEW OF SYSTEMS: As indicated above, otherwise a 10-point system was reviewed and negative. PHYSICAL EXAMINATION: VITAL SIGNS: Stable. O2 saturation currently on 2 liters is 94%. HEENT: Eyes: The sclerae were nonicteric. NECK: Jugular venous distention was not elevated. No lymphadenopathy. CHEST: Full expansion. LUNGS: Expiratory wheeze. CARDIOVASCULAR: Regular rate and rhythm with S1, S2, no S3. ABDOMEN: Dressing in place. EXTREMITIES: No clubbing, cyanosis or ischemia. NEUROLOGIC: The patient was awake, alert, following commands. A detailed neuro exam was not performed. LABORATORY DATA: White count is 11,000, hemoglobin and hematocrit were noted. Electrolytes were noted to be normal. Total protein was low. AST and ALT were normal. Chest x-ray was reviewed, no acute infiltrates. IMPRESSION: 1. Status post aortobifemoral bypass. 2. Status post right femoral endarterectomy. 3. Reimplantation of an inferior mesenteric artery. 4. Chronic obstructive pulmonary disease. 5. Tobacco dependence, in remission. 6. Peripheral arterial disease. 7. Expected dyspnea secondary to recent surgery. PLAN: 1. We will continue aggressive pulmonary hygiene with incentive spirometry and bronchodilators. 2. Monitor labs closely. 3. Repeat labs in the a.m. 4. DVT prophylaxis per surgery. I do appreciate the privilege in sharing in this patient's care. PACHECO BATISTA MD DR: JENNIFER/nohelia JOB#: [id number] / [id number]
[2020-07-06] MEDS: IV NORMAL SALINE 1000ML BAG 1,000 ML IV SCH ×4 (00:50→18:38)
[2020-07-06] MEDS: NORMAL SALINE 35 ML, fentaNYL PF VIAL 250 MCG, ROPIVacaine 0.5% PF 10 ML in EPIDURAL 50 TV EPID PRN ×5 (01:05→21:30)
[2020-07-06] MEDS: MORPHINE SULFATE 2 MG/ML VIAL. IV PRN ×5 (02:02→18:44)
[2020-07-06 02:47] VITALS: BP 141/84
[2020-07-06 07:00] VITALS: BP 131/76
[2020-07-06] MEDS: FAMOTIDINE 20 MG/2 ML VIAL IVP SCH ×2 (07:54→20:49)
[2020-07-06 08:26] LABS: BASO % 0 % (0-3); EOS % 0 % (0-3); HEMATOCRIT 36.5 % (39.0-53.0); HEMOGLOBIN 11.9 g/dL (13.0-17.5); LYMPH # 1.7 x10^3/uL (1.0-4.8); LYMPH % 16 % (24-48); MEAN CORPUSCULAR HEMOGLOBIN 33 pg (25-35); MEAN CORPUSCULAR HGB CONC 33 g/dL (31-37); MEAN CORPUSCULAR VOLUME 102 fL (79-100); MONO # 1.1 x10^3/uL (0.0-1.1); MONO % 11 % (0-9); NEUT # 7.7 x10^3/uL (1.8-7.7); NEUT % 73 % (31-73); PLATELET COUNT 122 x10^3/uL (140-400); RED BLOOD COUNT 3.59 x10^6/uL (4.30-5.70); WHITE BLOOD COUNT 10.6 x10^3/uL (4.0-11.0)
[2020-07-06 08:33] LABS: CALCIUM 7.9 mg/dL (8.5-10.1); CREATININE 0.8 mg/dL (0.7-1.3); GFR 99.3; MAGNESIUM 1.9 mg/dL (1.8-2.4); POTASSIUM 4.2 mmol/L (3.5-5.1)
[2020-07-06] MEDS: ELECTROLYTE (ICU) PROTOCOL. MC SCH (09:00)
--- NOTE | 2020-07-06 09:42 | PDOC ---
PULMONARY PROGRESS NOTE Objective Vital Signs Date Time Temp Pulse Resp B/P (MAP) Pulse Ox O2 Delivery O2 Flow Rate FiO2 07/06/20 07:00 98.7 84 18 131/76 (94) 98 Nasal Cannula 2.0 98.7 Intake and Output 07/06/20 06:59 Intake Total 120 ml Output Total 2275 ml Balance -2155 ml Intake Oral 120 ml Output Urine Total 2275 ml VITALS/I&O Vital Sign - Last 24 Hours 07/05/20 07/05/20 07/05/20 07/05/20 10:00 11:00 12:00 12:00 Pulse 82 94 82 82 B/P (MAP) 138/79 (98) 129/80 (96) 149/70 (96) 149/80 (103) Pulse Ox 97 94 97 O2 Delivery Room Air Room Air Room Air 07/05/20 07/05/20 07/05/20 07/05/20 13:00 14:00 15:00 15:30 Pulse 85 89 92 B/P (MAP) 138/76 (96) 129/70 (89) 138/77 (97) Pulse Ox 97 93 93 O2 Delivery Room Air Room Air Room Air Room Air 07/05/20 07/05/20 07/05/20 07/05/20 18:28 18:28 18:29 19:00 Temp 99.2 99.2 Pulse 107 Resp 19 B/P (MAP) 120/78 (92) Pulse Ox 93 93 93 96 O2 Delivery Room Air Room Air Room Air Room Air O2 Flow Rate 2.0 2.0 2.0 2.0 07/05/20 07/05/20 07/05/20 07/05/20 20:30 20:35 20:39 21:05 Pulse Ox 97 O2 Delivery Room Air Nasal Cannula Nasal Cannula Nasal Cannula O2 Flow Rate 2.0 2.0 2.0 07/05/20 07/05/20 07/05/20 07/06/20 21:33 22:03 22:29 01:05 Temp 99.2 99.2 Pulse 94 Resp 19 B/P (MAP) 139/84 (102) Pulse Ox 97 98 96 O2 Delivery Nasal Cannula Nasal Cannula Nasal Cannula Nasal Cannula O2 Flow Rate 2.0 2.0 2.0 2.0 07/06/20 07/06/20 07/06/20 07/06/20 01:35 02:02 02:32 02:47 Temp 98.5 98.5 Pulse 98 Resp 22 B/P (MAP) 141/84 (103) Pulse Ox 98 98 O2 Delivery Nasal Cannula Nasal Cannula Nasal Cannula Nasal Cannula O2 Flow Rate 2.0 2.0 2.0 2.0 07/06/20 07/06/20 07/06/20 07/06/20 03:10 03:40 06:09 06:39 Pulse Ox 98 98 O2 Delivery Nasal Cannula Nasal Cannula Nasal Cannula Nasal Cannula O2 Flow Rate 2.0 2.0 2.0 2.0 07/06/20 07:00 Temp 98.7 98.7 Pulse 84 Resp 18 B/P (MAP) 131/76 (94) Pulse Ox 98 O2 Delivery Nasal Cannula O2 Flow Rate 2.0 Intake and Output 07/05/20 07/05/20 07/06/20 14:59 22:59 06:59 Intake Total 120 ml Output Total 1150 ml 575 ml 550 ml Balance -1150 ml -455 ml -550 ml Review of Relevant I have reviewed the following items mai (where applicable) has been applied. Labs Laboratory Tests Test 07/04/20 13:40 07/04/20 19:15 07/05/20 06:16 07/06/20 07:00 White Blood Count 8.6 x10^3/uL (4.0-11.0) 10.2 x10^3/uL (4.0-11.0) 11.3 x10^3/uL (4.0-11.0) 10.6 x10^3/uL (4.0-11.0) Red Blood Count 3.73 x10^6/uL (4.30-5.70) 3.71 x10^6/uL (4.30-5.70) 3.55 x10^6/uL (4.30-5.70) 3.59 x10^6/uL (4.30-5.70) Hemoglobin 12.4 g/dL (13.0-17.5) 12.4 g/dL (13.0-17.5) 11.9 g/dL (13.0-17.5) 11.9 g/dL (13.0-17.5) Hematocrit 37.6 % (39.0-53.0) 37.1 % (39.0-53.0) 35.8 % (39.0-53.0) 36.5 % (39.0-53.0) Mean Corpuscular Volume 101 fL (79-100) 100 fL (79-100) 101 fL (79-100) 102 fL (79-100) Mean Corpuscular Hemoglobin 33 pg (25-35) 33 pg (25-35) 33 pg (25-35) 33 pg (25-35) Mean Corpuscular Hemoglobin Concent 33 g/dL (31-37) 33 g/dL (31-37) 33 g/dL (31-37) 33 g/dL (31-37) Red Cell Distribution Width 14.9 % (11.5-14.5) 14.8 % (11.5-14.5) 15.0 % (11.5-14.5) 15.0 % (11.5-14.5) Platelet Count 147 x10^3/uL (140-400) 146 x10^3/uL (140-400) 138 x10^3/uL (140-400) 122 x10^3/uL (140-400) Prothrombin Time 15.1 SEC (11.7-14.0) Prothromb Time International Ratio 1.2 (0.8-1.1) Activated Partial Thromboplast Time 32 SEC (24-38) Sodium Level 140 mmol/L (136-145) 141 mmol/L (136-145) 139 mmol/L (136-145) 143 mmol/L (136-145) Potassium Level 4.6 mmol/L (3.5-5.1) 4.4 mmol/L (3.5-5.1) 4.1 mmol/L (3.5-5.1) 4.2 mmol/L (3.5-5.1) Chloride Level 111 mmol/L (98-107) 110 mmol/L (98-107) 109 mmol/L (98-107) 110 mmol/L (98-107) Carbon Dioxide Level 22 mmol/L (21-32) 22 mmol/L (21-32) 22 mmol/L (21-32) 24 mmol/L (21-32) Anion Gap 7 (6-14) 9 (6-14) 8 (6-14) 9 (6-14) Blood Urea Nitrogen 12 mg/dL (8-26) 16 mg/dL (8-26) 18 mg/dL (8-26) 13 mg/dL (8-26) Creatinine 1.0 mg/dL (0.7-1.3) 1.1 mg/dL (0.7-1.3) 1.0 mg/dL (0.7-1.3) 0.8 mg/dL (0.7-1.3) Estimated GFR (Cockcroft-Gault) 76.7 68.8 76.7 99.3 Glucose Level 115 mg/dL (70-99) 121 mg/dL (70-99) 113 mg/dL (70-99) 120 mg/dL (70-99) Calcium Level 7.1 mg/dL (8.5-10.1) 7.4 mg/dL (8.5-10.1) 7.3 mg/dL (8.5-10.1) 7.9 mg/dL (8.5-10.1) Neutrophils (%) (Auto) 85 % (31-73) 69 % (31-73) 73 % (31-73) Lymphocytes (%) (Auto) 9 % (24-48) 18 % (24-48) 16 % (24-48) Monocytes (%) (Auto) 7 % (0-9) 13 % (0-9) 11 % (0-9) Eosinophils (%) (Auto) 0 % (0-3) 0 % (0-3) 0 % (0-3) Basophils (%) (Auto) 0 % (0-3) 0 % (0-3) 0 % (0-3) Neutrophils # (Auto) 8.6 x10^3/uL (1.8-7.7) 7.8 x10^3/uL (1.8-7.7) 7.7 x10^3/uL (1.8-7.7) Lymphocytes # (Auto) 0.9 x10^3/uL (1.0-4.8) 2.0 x10^3/uL (1.0-4.8) 1.7 x10^3/uL (1.0-4.8) Monocytes # (Auto) 0.7 x10^3/uL (0.0-1.1) 1.5 x10^3/uL (0.0-1.1) 1.1 x10^3/uL (0.0-1.1) Eosinophils # (Auto) 0.0 x10^3/uL (0.0-0.7) 0.0 x10^3/uL (0.0-0.7) 0.0 x10^3/uL (0.0-0.7) Basophils # (Auto) 0.0 x10^3/uL (0.0-0.2) 0.0 x10^3/uL (0.0-0.2) 0.0 x10^3/uL (0.0-0.2) BUN/Creatinine Ratio 18 (6-20) Magnesium Level 1.8 mg/dL (1.8-2.4) 1.9 mg/dL (1.8-2.4) Total Bilirubin 0.5 mg/dL (0.2-1.0) Aspartate Amino Transf (AST/SGOT) 31 U/L (15-37) Alanine Aminotransferase (ALT/SGPT) 26 U/L (16-63) Alkaline Phosphatase 41 U/L (46-116) Total Protein 4.8 g/dL (6.4-8.2) Albumin 2.5 g/dL (3.4-5.0) Albumin/Globulin Ratio 1.1 (1.0-1.7) Laboratory Tests Test 07/06/20 07:00 White Blood Count 10.6 x10^3/uL (4.0-11.0) Red Blood Count 3.59 x10^6/uL (4.30-5.70) Hemoglobin 11.9 g/dL (13.0-17.5) Hematocrit 36.5 % (39.0-53.0) Mean Corpuscular Volume 102 fL (79-100) Mean Corpuscular Hemoglobin 33 pg (25-35) Mean Corpuscular Hemoglobin Concent 33 g/dL (31-37) Red Cell Distribution Width 15.0 % (11.5-14.5) Platelet Count 122 x10^3/uL (140-400) Neutrophils (%) (Auto) 73 % (31-73) Lymphocytes (%) (Auto) 16 % (24-48) Monocytes (%) (Auto) 11 % (0-9) Eosinophils (%) (Auto) 0 % (0-3) Basophils (%) (Auto) 0 % (0-3) Neutrophils # (Auto) 7.7 x10^3/uL (1.8-7.7) Lymphocytes # (Auto) 1.7 x10^3/uL (1.0-4.8) Monocytes # (Auto) 1.1 x10^3/uL (0.0-1.1) Eosinophils # (Auto) 0.0 x10^3/uL (0.0-0.7) Basophils # (Auto) 0.0 x10^3/uL (0.0-0.2) Sodium Level 143 mmol/L (136-145) Potassium Level 4.2 mmol/L (3.5-5.1) Chloride Level 110 mmol/L (98-107) Carbon Dioxide Level 24 mmol/L (21-32) Anion Gap 9 (6-14) Blood Urea Nitrogen 13 mg/dL (8-26) Creatinine 0.8 mg/dL (0.7-1.3) Estimated GFR (Cockcroft-Gault) 99.3 Glucose Level 120 mg/dL (70-99) Calcium Level 7.9 mg/dL (8.5-10.1) Magnesium Level 1.9 mg/dL (1.8-2.4) Medications Current Medications Heparin Sodium (Porcine) 5000 unit/Sodium Chloride 505 ml @ 505 mls/hr 1X ONCE IRR Last administered on 07/04/20at 08:33; Start 07/04/20 at 06:00; Stop 07/04/20 at 06:59; Status DC Fentanyl Citrate (Fentanyl 2ml Vial) 25 mcg PRN Q5MIN PRN IVP MILD PAIN 1-3; Start 07/04/20 at 06:00; Stop 07/05/20 at 05:59; Status DC Fentanyl Citrate (Fentanyl 2ml Vial) 50 mcg PRN Q5MIN PRN IVP MODERATE PAIN 4- 6; Start 07/04/20 at 06:00; Stop 07/05/20 at 05:59; Status DC Morphine Sulfate (Morphine Sulfate) 1 mg PRN Q10MIN PRN IVP SEVERE PAIN 7-10; Start 07/04/20 at 06:00; Stop 07/05/20 at 05:59; Status DC Ringer's Solution 1,000 ml @ 30 mls/hr Q24H IV Last administered on 07/04/20at 06:49; Start 07/04/20 at 06:00; Stop 07/04/20 at 17:59; Status DC Hydromorphone HCl (Dilaudid) 0.5 mg PRN Q10MIN PRN IVP SEVERE PAIN 7-10, 2nd CHOICE; Start 07/04/20 at 06:00; Stop 07/05/20 at 05:59; Status DC Prochlorperazine Edisylate (Compazine) 5 mg PACU PRN PRN IVP NAUSEA, MRX1; Start 07/04/20 at 06:00; Stop 07/05/20 at 05:59; Status DC Cefazolin Sodium/ Dextrose 50 ml @ 100 mls/hr 1X ONCE IV Last administered on 07/04/20at 08:00; Start 07/04/20 at 06:00; Stop 07/04/20 at 06:29; Status DC Propofol (Diprivan) 200 mg STK-MED ONCE IV ; Start 07/04/20 at 06:48; Stop 07/04/20 at 06:48; Status DC Lidocaine HCl (Lidocaine Pf 2% Vial) 5 ml STK-MED ONCE .ROUTE ; Start 07/04/20 at 06:48; Stop 07/04/20 at 06:48; Status DC Fentanyl Citrate (Fentanyl 5ml Vial) 250 mcg STK-MED ONCE .ROUTE ; Start 07/04 at 06:49; Stop 07/04/20 at 06:50; Status DC Rocuronium [place] (Zemuron) 50 mg STK-MED ONCE .ROUTE ; Start 07/04/20 at 06:5 0; Stop 07/04/20 at 06:50; Status DC Midazolam HCl (Versed) 2 mg STK-MED ONCE .ROUTE ; Start 07/04/20 at 07:02; Stop 07/04/20 at 07:02; Status DC Cellulose (Surgicel Fibrillar 1x2) 1 each STK-MED ONCE .ROUTE Last administered on 07/04/20at 08:33; Start 07/04/20 at 07:05; Stop 07/04/20 at 07:05; Status DC Cellulose (Surgicel Fibrillar 1x2) 1 each STK-MED ONCE .ROUTE Last administered on 07/04/20at 08:33; Start 07/04/20 at 07:05; Stop 07/04/20 at 07:05; Status DC Midazolam HCl (Versed) 2 mg STK-MED ONCE .ROUTE ; Start 07/04/20 at 07:10; Stop 07/04/20 at 07:11; Status DC Lidocaine HCl (Xylocaine-Mpf 1% 2ml Vial) 2 ml STK-MED ONCE .ROUTE ; Start 07/04/20 at 07:10; Stop 07/04/20 at 07:11; Status DC Ropivacaine (Naropin 0.5%) 20 ml STK-MED ONCE .ROUTE ; Start 07/04/20 at 07:10; Stop 07/04/20 at 07:11; Status DC Heparin Sodium (Porcine) (Heparin Sodium) 30,000 unit STK-MED ONCE .ROUTE ; Start 07/04/20 at 07:15; Stop 07/04/20 at 07:16; Status DC Ropivacaine (Naropin 0.5%) 20 ml STK-MED ONCE .ROUTE ; Start 07/04/20 at 07:23; Stop 07/04/20 at 07:24; Status DC Cefazolin Sodium (Ancef) 1 gm Q8H IVP ; Start 07/04/20 at 18:00; Stop 07/05/20 at 02:01; Status Cancel Famotidine (Pepcid Vial) 20 mg BID IVP Last administered on 07/06/20at 07:54; Start 07/04/20 at 21:00 Info (Icu Electrolyte Protocol) 1 ea DAILY MC Last administered on 07/06/20at 09:00; Start 07/05/20 at 09:00 Naloxone HCl (Narcan) 0.1 mg PRN Q2MIN PRN IV SEE ADMIN INSTRUCTIONS; Start 07/04/20 at 07:30 Sodium Chloride (Normal Saline Flush) 3 ml QSHIFT PRN IV AFTER MEDS AND BLOOD DRAWS; Start 07/04/20 at 07:30 Sodium Chloride 1,000 ml @ 150 mls/hr Q6H40M IV Last administered on 07/06/20at 07:54; Start 07/04/20 at 07:30 Naloxone HCl (Narcan) 0.4 mg PRN Q2MIN PRN IV SEE INSTRUCTIONS; Start 07/04/20 at 07:30 Sodium Chloride 1,000 ml @ 25 mls/hr Q24H IV ; Start 07/04/20 at 07:30; Stop 07/04/20 at 17:58; Status DC Morphine Sulfate (Morphine Sulfate) 2 mg PRN Q1HR PRN IV PAIN Last administered on 07/06/20at 03:10; Start 07/04/20 at 07:30 Oxycodone/ Acetaminophen (Percocet 5/325) 1 tab PRN Q4HRS PRN PO MILD PAIN, 1ST CHOICE; Start 07/04/20 at 07:30 Oxycodone/ Acetaminophen (Percocet 5/325) 2 tab PRN Q4HRS PRN PO MODERATE PAIN, SEVERE PAIN; Start 07/04/20 at 07:30 Ondansetron HCl (Zofran) 4 mg PRN Q6HRS PRN IVP NAUESA, 1ST CHOICE; Start 07/04/20 at 07:30 Prochlorperazine Edisylate (Compazine) 5 mg PRN Q6HRS PRN IV N/V, 2nd Choice, MR X1; Start 07/04/20 at 07:30 Hydralazine HCl (Apresoline Inj) 10 mg PRN Q4HRS PRN IVP ELEVATED BP, SEE COMMENTS; Start 07/04/20 at 07:30 Labetalol HCl (Normodyne Iv Push) 10 mg PRN Q2HR PRN IVP HYPERTENSION; Start 07/04/20 at 07:30 Phenylephrine HCl (Jeff-Synephrine Inj) 10 mg STK-MED ONCE .ROUTE ; Start 07/04/20 at 08:13; Stop 07/04/20 at 08:14; Status DC Albumin Human 500 ml @ As Directed STK-MED ONCE IV ; Start 07/04/20 at 08:13; Stop 07/04/20 at 08:14; Status DC Sevoflurane (Ultane) 90 ml STK-MED ONCE IH ; Start 07/04/20 at 08:13; Stop 07/04/20 at 08:14; Status DC Rocuronium [place] (Zemuron) 50 mg STK-MED ONCE .ROUTE ; Start 07/04/20 at 08:34; Stop 07/04/20 at 08:34; Status DC Sodium Chloride 35 ml/Fentanyl Citrate 250 mcg/ Ropivacaine 10 ml/ Epidural Dosage Infused (Pha) 50 ml @ 0 mls/hr CONT PRN EPID SEE PROTOCOL TABLE Last administered on 07/06/20at 06:09; Start 07/04/20 at 10:00 Glycopyrrolate (Robinul) 1 mg STK-MED ONCE .ROUTE ; Start 07/04/20 at 09:06; Stop 07/04/20 at 09:07; Status DC Fentanyl Citrate (Fentanyl 5ml Vial) 250 mcg STK-MED ONCE .ROUTE ; Start 07/04/20 at 09:17; Stop 07/04/20 at 09:18; Status DC Rocuronium [place] (Zemuron) 50 mg STK-MED ONCE .ROUTE ; Start 07/04/20 at 10:37; Stop 07/04/20 at 10:38; Status DC Cellulose (Surgicel Fibrillar 1x2) 1 each STK-MED ONCE .ROUTE Last administered on 07/04/20at 08:33; Start 07/04/20 at 10:52; Stop 07/04/20 at 10:52; Status DC Cellulose (Surgicel Fibrillar 1x2) 1 each STK-MED ONCE .ROUTE Last administered on 07/04/20at 08:33; Start 07/04/20 at 10:52; Stop 07/04/20 at 10:53; Status DC Neostigmine [place] (Neostigmine Methylsulfate) 5 mg STK-MED ONCE .ROUTE ; S tart 07/04/20 at 11:20; Stop 07/04/20 at 11:20; Status DC Protamine Sulfate (Protamine) 50 mg STK-MED ONCE IV ; Start 07/04/20 at 11:27; Stop 07/04/20 at 11:27; Status DC Heparin Sodium (Porcine) (Heparin Sodium) 10,000 unit STK-MED ONCE .ROUTE ; Start 07/04/20 at 11:42; Stop 07/04/20 at 11:42; Status DC Cellulose (Surgicel Fibrillar 1x2) 3 each STK-MED ONCE .ROUTE Last administered on 07/04/20at 08:33; Start 07/04/20 at 12:03; Stop 07/04/20 at 12:03; Status DC Protamine Sulfate (Protamine) 50 mg STK-MED ONCE IV ; Start 07/04/20 at 12:04; Stop 07/04/20 at 12:04; Status DC Cellulose (Surgicel Fibrillar 1x2) 5 each STK-MED ONCE .ROUTE Last administered on 07/04/20at 08:33; Start 07/04/20 at 12:32; Stop 07/04/20 at 12:32; Status DC Aspirin (Tc Aspirin) 325 mg DAILY ONCE PO ; Start 07/05/20 at 09:00; Stop 07/05/20 at 09:01; Status DC Meperidine HCl (Demerol) 12.5 mg 1X ONCE IV Last administered on 07/04/20at 14:40; Start 07/04/20 at 14:45; Stop 07/04/20 at 14:46; Status DC Meperidine HCl (Demerol) 25 mg STK-MED ONCE .ROUTE ; Start 07/04/20 at 14:29; Stop 07/04/20 at 14:30; Status DC Cefazolin Sodium (Ancef) 1 gm STK-MED ONCE IVP ; Start 07/04/20 at 12:02; Stop 07/04/20 at 18:00; Status DC Cefazolin Sodium (Ancef) 1 gm Q8H IVP Last administered on 07/05/20at 03:40; Start 07/04/20 at 20:00; Stop 07/05/20 at 04:01; Status DC Albuterol Sulfate (Ventolin Neb Soln) 2.5 mg PRN Q6HRS PRN NEB SHORTNESS OF BREATH; Start 07/05/20 at 11:45; Status UNV Albuterol Sulfate (Ventolin Neb Soln) 2.5 mg PRN Q6HRS PRN NEB SHORTNESS OF BREATH; Start 07/05/20 at 11:45 Aspirin (Aspirin Rectal Supp) 300 mg 1X ONCE [place] Last administered on 07/05/20at 12:49; Start 07/05/20 at 12:30; Stop 07/05/20 at 12:31; Status DC Calcium Gluconate 1000 mg/Sodium Chloride 110 ml @ 220 mls/hr 1X ONCE IV Last administered on 07/05/20at 12:56; Start 07/05/20 at 12:30; Stop 07/05/20 at 12:59; Status DC Active Scripts Active Aspirin 325 Mg Tablet 325 Mg PO DAILYWBKFT 30 Days Atorvastatin Calcium 20 Mg Tablet 40 Mg PO QHS 30 Days Justicifation of Admission Dx: Justifications for Admission: Justification of Admission Dx: Yes PACHECO BATISTA MD Jul 06, 2020 09:42
[2020-07-06 11:00] VITALS: BP 147/88
--- NOTE | 2020-07-06 11:05 | NUR ---
SS following up with discharge planning. SS reviewed pt chart and discussed with pt RN. Pt is currently requiring oxygen at two liters nasal canula. COVID19 negative. 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 [employer] INSTRUCTOR pump in place. PT/OT recommended home when medically ready. SS will continue to follow for discharge planning.
[2020-07-06 15:00] VITALS: BP 119/78
--- NOTE | 2020-07-06 15:25 | PDOC ---
PULMONARY PROGRESS NOTES DATE: 07/06/20 TIME: 15:19 Subjective PT. remains on 2 liters no increased SOA, mild non-productive cough Epidural in place for pain management No other concerns at this time Comments PAST MEDICAL HISTORY Cardiovascular: Other (PAD) Pulmonary: No pertinent hx CENTRAL NERVOUS SYSTEM: Periperal neuropathy GI: No pertinent hx Heme/Onc: No pertinent hx Hepatobiliary: No pertinent hx Psych: No pertinent hx Musculoskeletal: Osteoarthritis Rheumatologic: No pertinent hx Infectious disease: No pertinent hx ENT: No pertinent hx Renal/: No pertinent hx Endocrine: No pertinent hx Dermatology: No pertinent hx PAST SURGICAL HISTORY Past Surgical History: Other (bilateral iliac stents in 2011) Vitals Vital Signs Date Time Temp Pulse Resp B/P (MAP) Pulse Ox O2 Delivery O2 Flow Rate FiO2 07/06/20 13:58 98 Nasal Cannula 2.0 07/06/20 11:00 98.1 109 18 147/88 (107) 98.1 ROS: No Nausea, No Chest Pain, No Abdominal Pain, No Increase Cough General: Alert Lungs: Wheezing Cardiovascular: S1, S2 Abdomen: Other (Dressing in place) Neuro Exam: Alert Extremities: No Edema Skin: Warm, Dry Labs Laboratory Tests Test 07/04/20 19:15 07/05/20 06:16 07/06/20 07:00 White Blood Count 10.2 x10^3/uL (4.0-11.0) 11.3 x10^3/uL (4.0-11.0) 10.6 x10^3/uL (4.0-11.0) Red Blood Count 3.71 x10^6/uL (4.30-5.70) 3.55 x10^6/uL (4.30-5.70) 3.59 x10^6/uL (4.30-5.70) Hemoglobin 12.4 g/dL (13.0-17.5) 11.9 g/dL (13.0-17.5) 11.9 g/dL (13.0-17.5) Hematocrit 37.1 % (39.0-53.0) 35.8 % (39.0-53.0) 36.5 % (39.0-53.0) Mean Corpuscular Volume 100 fL (79-100) 101 fL (79-100) 102 fL (79-100) Mean Corpuscular Hemoglobin 33 pg (25-35) 33 pg (25-35) 33 pg (25-35) Mean Corpuscular Hemoglobin Concent 33 g/dL (31-37) 33 g/dL (31-37) 33 g/dL (31-37) Red Cell Distribution Width 14.8 % (11.5-14.5) 15.0 % (11.5-14.5) 15.0 % (11.5-14.5) Platelet Count 146 x10^3/uL (140-400) 138 x10^3/uL (140-400) 122 x10^3/uL (140-400) Neutrophils (%) (Auto) 85 % (31-73) 69 % (31-73) 73 % (31-73) Lymphocytes (%) (Auto) 9 % (24-48) 18 % (24-48) 16 % (24-48) Monocytes (%) (Auto) 7 % (0-9) 13 % (0-9) 11 % (0-9) Eosinophils (%) (Auto) 0 % (0-3) 0 % (0-3) 0 % (0-3) Basophils (%) (Auto) 0 % (0-3) 0 % (0-3) 0 % (0-3) Neutrophils # (Auto) 8.6 x10^3/uL (1.8-7.7) 7.8 x10^3/uL (1.8-7.7) 7.7 x10^3/uL (1.8-7.7) Lymphocytes # (Auto) 0.9 x10^3/uL (1.0-4.8) 2.0 x10^3/uL (1.0-4.8) 1.7 x10^3/uL (1.0-4.8) Monocytes # (Auto) 0.7 x10^3/uL (0.0-1.1) 1.5 x10^3/uL (0.0-1.1) 1.1 x10^3/uL (0.0-1.1) Eosinophils # (Auto) 0.0 x10^3/uL (0.0-0.7) 0.0 x10^3/uL (0.0-0.7) 0.0 x10^3/uL (0.0-0.7) Basophils # (Auto) 0.0 x10^3/uL (0.0-0.2) 0.0 x10^3/uL (0.0-0.2) 0.0 x10^3/uL (0.0-0.2) Sodium Level 141 mmol/L (136-145) 139 mmol/L (136-145) 143 mmol/L (136-145) Potassium Level 4.4 mmol/L (3.5-5.1) 4.1 mmol/L (3.5-5.1) 4.2 mmol/L (3.5-5.1) Chloride Level 110 mmol/L (98-107) 109 mmol/L (98-107) 110 mmol/L (98-107) Carbon Dioxide Level 22 mmol/L (21-32) 22 mmol/L (21-32) 24 mmol/L (21-32) Anion Gap 9 (6-14) 8 (6-14) 9 (6-14) Blood Urea Nitrogen 16 mg/dL (8-26) 18 mg/dL (8-26) 13 mg/dL (8-26) Creatinine 1.1 mg/dL (0.7-1.3) 1.0 mg/dL (0.7-1.3) 0.8 mg/dL (0.7-1.3) Estimated GFR (Cockcroft-Gault) 68.8 76.7 99.3 Glucose Level 121 mg/dL (70-99) 113 mg/dL (70-99) 120 mg/dL (70-99) Calcium Level 7.4 mg/dL (8.5-10.1) 7.3 mg/dL (8.5-10.1) 7.9 mg/dL (8.5-10.1) BUN/Creatinine Ratio 18 (6-20) Magnesium Level 1.8 mg/dL (1.8-2.4) 1.9 mg/dL (1.8-2.4) Total Bilirubin 0.5 mg/dL (0.2-1.0) Aspartate Amino Transf (AST/SGOT) 31 U/L (15-37) Alanine Aminotransferase (ALT/SGPT) 26 U/L (16-63) Alkaline Phosphatase 41 U/L (46-116) Total Protein 4.8 g/dL (6.4-8.2) Albumin 2.5 g/dL (3.4-5.0) Albumin/Globulin Ratio 1.1 (1.0-1.7) Laboratory Tests Test 07/06/20 07:00 White Blood Count 10.6 x10^3/uL (4.0-11.0) Red Blood Count 3.59 x10^6/uL (4.30-5.70) Hemoglobin 11.9 g/dL (13.0-17.5) Hematocrit 36.5 % (39.0-53.0) Mean Corpuscular Volume 102 fL (79-100) Mean Corpuscular Hemoglobin 33 pg (25-35) Mean Corpuscular Hemoglobin Concent 33 g/dL (31-37) Red Cell Distribution Width 15.0 % (11.5-14.5) Platelet Count 122 x10^3/uL (140-400) Neutrophils (%) (Auto) 73 % (31-73) Lymphocytes (%) (Auto) 16 % (24-48) Monocytes (%) (Auto) 11 % (0-9) Eosinophils (%) (Auto) 0 % (0-3) Basophils (%) (Auto) 0 % (0-3) Neutrophils # (Auto) 7.7 x10^3/uL (1.8-7.7) Lymphocytes # (Auto) 1.7 x10^3/uL (1.0-4.8) Monocytes # (Auto) 1.1 x10^3/uL (0.0-1.1) Eosinophils # (Auto) 0.0 x10^3/uL (0.0-0.7) Basophils # (Auto) 0.0 x10^3/uL (0.0-0.2) Sodium Level 143 mmol/L (136-145) Potassium Level 4.2 mmol/L (3.5-5.1) Chloride Level 110 mmol/L (98-107) Carbon Dioxide Level 24 mmol/L (21-32) Anion Gap 9 (6-14) Blood Urea Nitrogen 13 mg/dL (8-26) Creatinine 0.8 mg/dL (0.7-1.3) Estimated GFR (Cockcroft-Gault) 99.3 Glucose Level 120 mg/dL (70-99) Calcium Level 7.9 mg/dL (8.5-10.1) Magnesium Level 1.9 mg/dL (1.8-2.4) Medications Active Scripts Medications Dose Route/Sig Max Daily Dose Days Date Category Aspirin 325 Mg Tablet 325 Mg PO DAILYWBKFT 30 06/21/20 Rx Atorvastatin Calcium 20 Mg Tablet 40 Mg PO QHS 30 06/21/20 Rx Impression . IMPRESSION: 1. Status post aortobifemoral bypass. 2. Status post right femoral endarterectomy. 3. Reimplantation of an inferior mesenteric artery. 4. Chronic obstructive pulmonary disease. 5. Tobacco dependence, in remission. 6. Peripheral arterial disease. 7. Expected dyspnea secondary to recent surgery. OPERATIONS PERFORMED: 1. Infrarenal abdominal aortic to bifemoral artery bypass graft using a 16 x 8 mm Propaten PTFE graft. 2. Suprarenal clamping above the right renal artery and the left accessory renal artery was required for this bypass. 3. Right common femoral artery endarterectomy. 4. Reimplantation of the inferior mesenteric artery into the side of the PTFE graft. 5. The left groin was a redo exposure. Plan . PLAN: Continue supplemental oxygen to keep Sats above 94%, currently on 2 liters N/C Aggressive pulmonary hygiene with incentive spirometry and bronchodilators. Follow Vascular surgery recs- Status post aortobifemoral bypass with renal endarterectomy postoperative day #1 Monitor labs closely Pain management with epidural DVT prophylaxis per surgery. PT/OT D/W PACHECO AGUILERA MD Jul 06, 2020 15:24
--- NOTE | 2020-07-06 17:07 | PATHOLOGY ---
[facility] Accession Number: [id number] . 01 Material submitted: . groin - LEFT GROIN LYMPH NODE. Modifiers: left . 01 Clinical history: . AORTOBIFEMORAL BYPASS . 02 Diagnosis: Lymph node and attached perinodal fibroadipose tissue, left groin lymph node excision: - Reactive lymphoid hyperplasia, mixed pattern. (JPM:lab aide; 07/06/2020) MBR 07/06/2020 1701 Local . 02 Comment: Sections of the left groin lymph node excision reveal lymph node with attached perinodal fibroadipose tissue. The overall lymph node architecture appears preserved. There are scattered lymphoid follicles within the cortex which contain germinal centers. There are foci of paracortical expansion comprised of small lymphocytes with scattered admixed histiocytes. There is mild sinus histiocytosis. There are no granulomas. There is no evidence of lymphoma or metastatic neoplasm. (JPM:lab aide; 07/06/2020) . 02 Electronically signed: . Rajat Fonseca MD, Pathologist NPI- [id number] . 01 Gross description: . The specimen is received in formalin, labeled "Ravindra Castanon, left groin lymph node" and consists of a pink-yellow lymph node with attached perinodal adipose tissue measuring 3.0 x 1.0 x 0.8 cm showing pink cut surfaces which is entirely submitted in A1-A3. (SDY; 07/05/2020) SYU/SYU 07/06/2020 1546 Local . 02 Pathologist provided ICD-10: R59.1 . 02 CPT . 317543 Specimen Comment: A courtesy copy of this report has been sent to [phone] Specimen Comment: Report sent to / Performed at: 01 [facility] [place] [address], [place], [place] [id number] MD Tom Silva MD Phone: [phone] Performed at: 02 [facility] [address] [place], [place] [id number] MD Rajat Fonseca MD Phone: [phone]
--- NOTE | 2020-07-06 17:16 | PDOC ---
PROGRESS NOTES Date of Service DATE: 07/06/20 TIME: 17:12 Subjective Subjective Pt seen and examined in his hospital bed He has no new c/o, has had some small flatus this evening. VSS Pain well controlled with epidural abdomen soft, appropriate post-op exam, abdomen and groin dressings / incisions show no hematoma / no bleeding 2+ PT pulses bilaterally, feet warm normal motor and sensation Chest good air movement, CTA CV: RRR labs reviewed -- Hg stable, Cr normal, electrolytes normal, excellent urine output Doign well Out of bed to chair TID Deep breath /IS q 1 hour while awake NG out likely in AM would keep [place] while epidural in place Objective Objective Vital Signs Date Time Temp Pulse Resp B/P (MAP) Pulse Ox O2 Delivery O2 Flow Rate FiO2 07/06/20 17:03 97 Nasal Cannula 2.0 07/06/20 15:00 98.8 91 20 119/78 (92) 98.8 Intake and Output 07/06/20 07:00 Intake Total 120 ml Output Total 2275 ml Balance -2155 ml Intake Oral 120 ml Output Urine Total 2275 ml Comment Review of Relevant I have reviewed the following items mai (where applicable) has been applied. Labs Laboratory Tests Test 07/04/20 19:15 07/05/20 06:16 07/06/20 07:00 White Blood Count 10.2 x10^3/uL (4.0-11.0) 11.3 x10^3/uL (4.0-11.0) 10.6 x10^3/uL (4.0-11.0) Red Blood Count 3.71 x10^6/uL (4.30-5.70) 3.55 x10^6/uL (4.30-5.70) 3.59 x10^6/uL (4.30-5.70) Hemoglobin 12.4 g/dL (13.0-17.5) 11.9 g/dL (13.0-17.5) 11.9 g/dL (13.0-17.5) Hematocrit 37.1 % (39.0-53.0) 35.8 % (39.0-53.0) 36.5 % (39.0-53.0) Mean Corpuscular Volume 100 fL (79-100) 101 fL (79-100) 102 fL (79-100) Mean Corpuscular Hemoglobin 33 pg (25-35) 33 pg (25-35) 33 pg (25-35) Mean Corpuscular Hemoglobin Concent 33 g/dL (31-37) 33 g/dL (31-37) 33 g/dL (31-37) Red Cell Distribution Width 14.8 % (11.5-14.5) 15.0 % (11.5-14.5) 15.0 % (11.5-14.5) Platelet Count 146 x10^3/uL (140-400) 138 x10^3/uL (140-400) 122 x10^3/uL (140-400) Neutrophils (%) (Auto) 85 % (31-73) 69 % (31-73) 73 % (31-73) Lymphocytes (%) (Auto) 9 % (24-48) 18 % (24-48) 16 % (24-48) Monocytes (%) (Auto) 7 % (0-9) 13 % (0-9) 11 % (0-9) Eosinophils (%) (Auto) 0 % (0-3) 0 % (0-3) 0 % (0-3) Basophils (%) (Auto) 0 % (0-3) 0 % (0-3) 0 % (0-3) Neutrophils # (Auto) 8.6 x10^3/uL (1.8-7.7) 7.8 x10^3/uL (1.8-7.7) 7.7 x10^3/uL (1.8-7.7) Lymphocytes # (Auto) 0.9 x10^3/uL (1.0-4.8) 2.0 x10^3/uL (1.0-4.8) 1.7 x10^3/uL (1.0-4.8) Monocytes # (Auto) 0.7 x10^3/uL (0.0-1.1) 1.5 x10^3/uL (0.0-1.1) 1.1 x10^3/uL (0.0-1.1) Eosinophils # (Auto) 0.0 x10^3/uL (0.0-0.7) 0.0 x10^3/uL (0.0-0.7) 0.0 x10^3/uL (0.0-0.7) Basophils # (Auto) 0.0 x10^3/uL (0.0-0.2) 0.0 x10^3/uL (0.0-0.2) 0.0 x10^3/uL (0.0-0.2) Sodium Level 141 mmol/L (136-145) 139 mmol/L (136-145) 143 mmol/L (136-145) Potassium Level 4.4 mmol/L (3.5-5.1) 4.1 mmol/L (3.5-5.1) 4.2 mmol/L (3.5-5.1) Chloride Level 110 mmol/L (98-107) 109 mmol/L (98-107) 110 mmol/L (98-107) Carbon Dioxide Level 22 mmol/L (21-32) 22 mmol/L (21-32) 24 mmol/L (21-32) Anion Gap 9 (6-14) 8 (6-14) 9 (6-14) Blood Urea Nitrogen 16 mg/dL (8-26) 18 mg/dL (8-26) 13 mg/dL (8-26) Creatinine 1.1 mg/dL (0.7-1.3) 1.0 mg/dL (0.7-1.3) 0.8 mg/dL (0.7-1.3) Estimated GFR (Cockcroft-Gault) 68.8 76.7 99.3 Glucose Level 121 mg/dL (70-99) 113 mg/dL (70-99) 120 mg/dL (70-99) Calcium Level 7.4 mg/dL (8.5-10.1) 7.3 mg/dL (8.5-10.1) 7.9 mg/dL (8.5-10.1) BUN/Creatinine Ratio 18 (6-20) Magnesium Level 1.8 mg/dL (1.8-2.4) 1.9 mg/dL (1.8-2.4) Total Bilirubin 0.5 mg/dL (0.2-1.0) Aspartate Amino Transf (AST/SGOT) 31 U/L (15-37) Alanine Aminotransferase (ALT/SGPT) 26 U/L (16-63) Alkaline Phosphatase 41 U/L (46-116) Total Protein 4.8 g/dL (6.4-8.2) Albumin 2.5 g/dL (3.4-5.0) Albumin/Globulin Ratio 1.1 (1.0-1.7) Laboratory Tests Test 07/06/20 07:00 White Blood Count 10.6 x10^3/uL (4.0-11.0) Red Blood Count 3.59 x10^6/uL (4.30-5.70) Hemoglobin 11.9 g/dL (13.0-17.5) Hematocrit 36.5 % (39.0-53.0) Mean Corpuscular Volume 102 fL (79-100) Mean Corpuscular Hemoglobin 33 pg (25-35) Mean Corpuscular Hemoglobin Concent 33 g/dL (31-37) Red Cell Distribution Width 15.0 % (11.5-14.5) Platelet Count 122 x10^3/uL (140-400) Neutrophils (%) (Auto) 73 % (31-73) Lymphocytes (%) (Auto) 16 % (24-48) Monocytes (%) (Auto) 11 % (0-9) Eosinophils (%) (Auto) 0 % (0-3) Basophils (%) (Auto) 0 % (0-3) Neutrophils # (Auto) 7.7 x10^3/uL (1.8-7.7) Lymphocytes # (Auto) 1.7 x10^3/uL (1.0-4.8) Monocytes # (Auto) 1.1 x10^3/uL (0.0-1.1) Eosinophils # (Auto) 0.0 x10^3/uL (0.0-0.7) Basophils # (Auto) 0.0 x10^3/uL (0.0-0.2) Sodium Level 143 mmol/L (136-145) Potassium Level 4.2 mmol/L (3.5-5.1) Chloride Level 110 mmol/L (98-107) Carbon Dioxide Level 24 mmol/L (21-32) Anion Gap 9 (6-14) Blood Urea Nitrogen 13 mg/dL (8-26) Creatinine 0.8 mg/dL (0.7-1.3) Estimated GFR (Cockcroft-Gault) 99.3 Glucose Level 120 mg/dL (70-99) Calcium Level 7.9 mg/dL (8.5-10.1) Magnesium Level 1.9 mg/dL (1.8-2.4) Medications Current Medications Heparin Sodium (Porcine) 5000 unit/Sodium Chloride 505 ml @ 505 mls/hr 1X ONCE IRR Last administered on 07/04/20at 08:33; Start 07/04/20 at 06:00; Stop 07/04/20 at 06:59; Status DC Fentanyl Citrate (Fentanyl 2ml Vial) 25 mcg PRN Q5MIN PRN IVP MILD PAIN 1-3; Start 07/04/20 at 06:00; Stop 07/05/20 at 05:59; Status DC Fentanyl Citrate (Fentanyl 2ml Vial) 50 mcg PRN Q5MIN PRN IVP MODERATE PAIN 4- 6; Start 07/04/20 at 06:00; Stop 07/05/20 at 05:59; Status DC Morphine Sulfate (Morphine Sulfate) 1 mg PRN Q10MIN PRN IVP SEVERE PAIN 7-10; Start 07/04/20 at 06:00; Stop 07/05/20 at 05:59; Status DC Ringer's Solution 1,000 ml @ 30 mls/hr Q24H IV Last administered on 07/04/20at 06:49; Start 07/04/20 at 06:00; Stop 07/04/20 at 17:59; Status DC Hydromorphone HCl (Dilaudid) 0.5 mg PRN Q10MIN PRN IVP SEVERE PAIN 7-10, 2nd CHOICE; Start 07/04/20 at 06:00; Stop 07/05/20 at 05:59; Status DC Prochlorperazine Edisylate (Compazine) 5 mg PACU PRN PRN IVP NAUSEA, MRX1; Start 07/04/20 at 06:00; Stop 07/05/20 at 05:59; Status DC Cefazolin Sodium/ Dextrose 50 ml @ 100 mls/hr 1X ONCE IV Last administered on 07/04/20at 08:00; Start 07/04/20 at 06:00; Stop 07/04/20 at 06:29; Status DC Propofol (Diprivan) 200 mg STK-MED ONCE IV ; Start 07/04/20 at 06:48; Stop 07/04/20 at 06:48; Status DC Lidocaine HCl (Lidocaine Pf 2% Vial) 5 ml STK-MED ONCE .ROUTE ; Start 07/04/20 at 06:48; Stop 07/04/20 at 06:48; Status DC Fentanyl Citrate (Fentanyl 5ml Vial) 250 mcg STK-MED ONCE .ROUTE ; Start 07/04/20 at 06:49; Stop 07/04/20 at 06:50; Status DC Rocuronium Pine (Zemuron) 50 mg STK-MED ONCE .ROUTE ; Start 07/04/20 at 06:50; Stop 07/04/20 at 06:50; Status DC Midazolam HCl (Versed) 2 mg STK-MED ONCE .ROUTE ; Start 07/04/20 at 07:02; Stop 07/04/20 at 07:02; Status DC Cellulose (Surgicel Fibrillar 1x2) 1 each STK-MED ONCE .ROUTE Last administered on 07/04/20at 08:33; Start 07/04/20 at 07:05; Stop 07/04/20 at 07:05; Status DC Cellulose (Surgicel Fibrillar 1x2) 1 each STK-MED ONCE .ROUTE Last administered on 07/04/20at 08:33; Start 07/04/20 at 07:05; Stop 07/04/20 at 07:05; Status DC Midazolam HCl (Versed) 2 mg STK-MED ONCE .ROUTE ; Start 07/04/20 at 07:10; Stop 07/04/20 at 07:11; Status DC Lidocaine HCl (Xylocaine-Mpf 1% 2ml Vial) 2 ml STK-MED ONCE .ROUTE ; Start 07/04/20 at 07:10; Stop 07/04/20 at 07:11; Status DC Ropivacaine (Naropin 0.5%) 20 ml STK-MED ONCE .ROUTE ; Start 07/04/20 at 07:10; Stop 07/04/20 at 07:11; Status DC Heparin Sodium (Porcine) (Heparin Sodium) 30,000 unit STK-MED ONCE .ROUTE ; Start 07/04/20 at 07:15; Stop 07/04/20 at 07:16; Status DC Ropivacaine (Naropin 0.5%) 20 ml STK-MED ONCE .ROUTE ; Start 07/04/20 at 07:23; Stop 07/04/20 at 07:24; Status DC Cefazolin Sodium (Ancef) 1 gm Q8H IVP ; Start 07/04/20 at 18:00; Stop 07/05/20 at 02:01; Status Cancel Famotidine (Pepcid Vial) 20 mg BID IVP Last administered on 07/06/20at 07:54; Start 07/04/20 at 21:00 Info (Icu Electrolyte Protocol) 1 ea DAILY MC Last administered on 07/06/20at 09:00; Start 07/05/20 at 09:00 Naloxone HCl (Narcan) 0.1 mg PRN Q2MIN PRN IV SEE ADMIN INSTRUCTIONS; Start 07/04/20 at 07:30 Sodium Chloride (Normal Saline Flush) 3 ml QSHIFT PRN IV AFTER MEDS AND BLOOD DRAWS; Start 07/04/20 at 07:30 Sodium Chloride 1,000 ml @ 150 mls/hr Q6H40M IV Last administered on 07/06/20at 12:30; Start 07/04/20 at 07:30 Naloxone HCl (Narcan) 0.4 mg PRN Q2MIN PRN IV SEE INSTRUCTIONS; Start 07/04/20 at 07:30 Sodium Chloride 1,000 ml @ 25 mls/hr Q24H IV ; Start 07/04/20 at 07:30; Stop 07/04/20 at 17:58; Status DC Morphine Sulfate (Morphine Sulfate) 2 mg PRN Q1HR PRN IV PAIN Last administered on 07/06/20at 13:28; Start 07/04/20 at 07:30 Oxycodone/ Acetaminophen (Percocet 5/325) 1 tab PRN Q4HRS PRN PO MILD PAIN, 1ST CHOICE; Start 07/04/20 at 07:30 Oxycodone/ Acetaminophen (Percocet 5/325) 2 tab PRN Q4HRS PRN PO MODERATE PAIN, SEVERE PAIN; Start 07/04/20 at 07:30 Ondansetron HCl (Zofran) 4 mg PRN Q6HRS PRN IVP NAUESA, 1ST CHOICE; Start 07/04/20 at 07:30 Prochlorperazine Edisylate (Compazine) 5 mg PRN Q6HRS PRN IV N/V, 2nd Choice, MR X1; Start 07/04/20 at 07:30 Hydralazine HCl (Apresoline Inj) 10 mg PRN Q4HRS PRN IVP ELEVATED BP, SEE COMMENTS; Start 07/04/20 at 07:30 Labetalol HCl (Normodyne Iv Push) 10 mg PRN Q2HR PRN IVP HYPERTENSION; Start 07/04/20 at 07:30 Phenylephrine HCl (Jeff-Synephrine Inj) 10 mg STK-MED ONCE .ROUTE ; Start 07/04/20 at 08:13; Stop 07/04/20 at 08:14; Status DC Albumin Human 500 ml @ As Directed STK-MED ONCE IV ; Start 07/04/20 at 08:13; Stop 07/04/20 at 08:14; Status DC Sevoflurane (Ultane) 90 ml STK-MED ONCE IH ; Start 07/04/20 at 08:13; Stop 07/04/20 at 08:14; Status DC Rocuronium Pine (Zemuron) 50 mg STK-MED ONCE .ROUTE ; Start 07/04/20 at 08:34; Stop 07/04/20 at 08:34; Status DC Sodium Chloride 35 ml/Fentanyl Citrate 250 mcg/ Ropivacaine 10 ml/ Epidural Dosage Infused (Pha) 50 ml @ 0 mls/hr CONT PRN EPID SEE PROTOCOL TABLE Last administered on 07/06/20at 16:33; Start 07/04/20 at 10:00 Glycopyrrolate (Robinul) 1 mg STK-MED ONCE .ROUTE ; Start 07/04/20 at 09:06; Stop 07/04/20 at 09:07; Status DC Fentanyl Citrate (Fentanyl 5ml Vial) 250 mcg STK-MED ONCE .ROUTE ; Start 07/04/20 at 09:17; Stop 07/04/20 at 09:18; Status DC Rocuronium Pine (Zemuron) 50 mg STK-MED ONCE .ROUTE ; Start 07/04/20 at 10:37; Stop 07/04/20 at 10:38; Status DC Cellulose (Surgicel Fibrillar 1x2) 1 each STK-MED ONCE .ROUTE Last administered on 07/04/20at 08:33; Start 07/04/20 at 10:52; Stop 07/04/20 at 10:52; Status DC Cellulose (Surgicel Fibrillar 1x2) 1 each STK-MED ONCE .ROUTE Last administered on 07/04/20at 08:33; Start 07/04/20 at 10:52; Stop 07/04/20 at 10:53; Status DC Neostigmine Pine (Neostigmine Methylsulfate) 5 mg STK-MED ONCE .ROUTE ; Start 07/04/20 at 11:20; Stop 07/04/20 at 11:20; Status DC Protamine Sulfate (Protamine) 50 mg STK-MED ONCE IV ; Start 07/04/20 at 11:27; Stop 07/04/20 at 11:27; Status DC Heparin Sodium (Porcine) (Heparin Sodium) 10,000 unit STK-MED ONCE .ROUTE ; Start 07/04/20 at 11:42; Stop 07/04/20 at 11:42; Status DC Cellulose (Surgicel Fibrillar 1x2) 3 each STK-MED ONCE .ROUTE Last administered on 07/04/20at 08:33; Start 07/04/20 at 12:03; Stop 07/04/20 at 12:03; Status DC Protamine Sulfate (Protamine) 50 mg STK-MED ONCE IV ; Start 07/04/20 at 12:04; Stop 07/04/20 at 12:04; Status DC Cellulose (Surgicel Fibrillar 1x2) 5 each STK-MED ONCE .ROUTE Last administered on 07/04/20at 08:33; Start 07/04/20 at 12:32; Stop 07/04/20 at 12:32; Status DC Aspirin (Tc Aspirin) 325 mg DAILY ONCE PO ; Start 07/05/20 at 09:00; Stop 07/05/20 at 09:01; Status DC Meperidine HCl (Demerol) 12.5 mg 1X ONCE IV Last administered on 07/04/20at 14:40; Start 07/04/20 at 14:45; Stop 07/04/20 at 14:46; Status DC Meperidine HCl (Demerol) 25 mg STK-MED ONCE .ROUTE ; Start 07/04/20 at 14:29; Stop 07/04/20 at 14:30; Status DC Cefazolin Sodium (Ancef) 1 gm STK-MED ONCE IVP ; Start 07/04/20 at 12:02; Stop 07/04/20 at 18:00; Status DC Cefazolin Sodium (Ancef) 1 gm Q8H IVP Last administered on 07/05/20at 03:40; Start 07/04/20 at 20:00; Stop 07/05/20 at 04:01; Status DC Albuterol Sulfate (Ventolin Neb Soln) 2.5 mg PRN Q6HRS PRN NEB SHORTNESS OF BREATH; Start 07/05/20 at 11:45; Status UNV Albuterol Sulfate (Ventolin Neb Soln) 2.5 mg PRN Q6HRS PRN NEB SHORTNESS OF BREATH; Start 07/05/20 at 11:45 Aspirin (Aspirin Rectal Supp) 300 mg 1X ONCE DC Last administered on 07/05/20at 12:49; Start 07/05/20 at 12:30; Stop 07/05/20 at 12:31; Status DC Calcium Gluconate 1000 mg/Sodium Chloride 110 ml @ 220 mls/hr 1X ONCE IV Last administered on 07/05/20at 12:56; Start 07/05/20 at 12:30; Stop 07/05/20 at 12:59; Status DC Active Scripts Active Aspirin 325 Mg Tablet 325 Mg PO [id number] 30 Days Atorvastatin Calcium 20 Mg Tablet 40 Mg PO QHS 30 Days Vitals/I & O Vital Sign - Last 24 Hours 07/05/20 07/05/20 07/05/20 07/05/20 18:28 18:28 18:29 19:00 Temp 99.2 99.2 Pulse 107 Resp 19 B/P (MAP) 120/78 (92) Pulse Ox 93 93 93 96 O2 Delivery Room Air Room Air Room Air Room Air O2 Flow Rate 2.0 2.0 2.0 2.0 07/05/20 07/05/20 07/05/20 07/05/20 20:30 20:35 20:39 21:05 Pulse Ox 97 O2 Delivery Room Air Nasal Cannula Nasal Cannula Nasal Cannula O2 Flow Rate 2.0 2.0 2.0 07/05/20 07/05/20 07/05/20 07/06/20 21:33 22:03 22:29 01:05 Temp 99.2 99.2 Pulse 94 Resp 19 B/P (MAP) 139/84 (102) Pulse Ox 97 98 96 O2 Delivery Nasal Cannula Nasal Cannula Nasal Cannula Nasal Cannula O2 Flow Rate 2.0 2.0 2.0 2.0 07/06/20 07/06/20 07/06/20 07/06/20 01:35 02:02 02:32 02:47 Temp 98.5 98.5 Pulse 98 Resp 22 B/P (MAP) 141/84 (103) Pulse Ox 98 98 O2 Delivery Nasal Cannula Nasal Cannula Nasal Cannula Nasal Cannula O2 Flow Rate 2.0 2.0 2.0 2.0 07/06/20 07/06/20 07/06/20 07/06/20 03:10 03:40 06:09 06:39 Pulse Ox 98 98 O2 Delivery Nasal Cannula Nasal Cannula Nasal Cannula Nasal Cannula O2 Flow Rate 2.0 2.0 2.0 2.0 07/06/20 07/06/20 07/06/20 07/06/20 07:00 08:00 10:54 11:00 Temp 98.7 98.1 98.7 98.1 Pulse 84 109 Resp 18 18 B/P (MAP) 131/76 (94) 147/88 (107) Pulse Ox 98 98 97 O2 Delivery Nasal Cannula Nasal Cannula Nasal Cannula Nasal Cannula O2 Flow Rate 2.0 2.0 2.0 2.0 07/06/20 07/06/20 07/06/20 07/06/20 11:24 11:40 12:10 13:28 Pulse Ox 98 98 98 98 O2 Delivery Nasal Cannula Nasal Cannula Nasal Cannula Nasal Cannula O2 Flow Rate 2.0 2.0 2.0 2.0 07/06/20 07/06/20 07/06/20 07/06/20 13:58 15:00 16:33 17:03 Temp 98.8 98.8 Pulse 91 Resp 20 B/P (MAP) 119/78 (92) Pulse Ox 98 97 97 97 O2 Delivery Nasal Cannula Nasal Cannula Nasal Cannula Nasal Cannula O2 Flow Rate 2.0 2.0 2.0 2.0 Intake and Output 07/05/20 07/05/20 07/06/20 15:00 23:00 07:00 Intake Total 120 ml Output Total 1150 ml 575 ml 550 ml Balance -1150 ml -455 ml -550 ml Justifications for Admission Other Justification SHANNAN,HARPREET Francois MD Jul 06, 2020 17:16
[2020-07-06 19:44] VITALS: BP 149/78
[2020-07-06 22:47] VITALS: BP 141/81
[2020-07-07] MEDS: NORMAL SALINE 35 ML, fentaNYL PF VIAL 250 MCG, ROPIVacaine 0.5% PF 10 ML in EPIDURAL 50 TV EPID PRN ×5 (01:59→21:23)
[2020-07-07] MEDS: MORPHINE SULFATE 2 MG/ML VIAL. IV PRN (03:16)
[2020-07-07 03:25] VITALS: BP 143/79
[2020-07-07] MEDS: IV NORMAL SALINE 1000ML BAG 1,000 ML IV SCH ×3 (04:12→17:33)
[2020-07-07 07:37] VITALS: BP 136/82
--- NOTE | 2020-07-07 07:43 | PDOC ---
PULMONARY PROGRESS NOTES DATE: 07/07/20 TIME: 07:42 Subjective on RA has cough sputum denies sob No other concerns at this time Comments PAST MEDICAL HISTORY Cardiovascular: Other (PAD) Pulmonary: No pertinent hx CENTRAL NERVOUS SYSTEM: Periperal neuropathy GI: No pertinent hx Heme/Onc: No pertinent hx Hepatobiliary: No pertinent hx Psych: No pertinent hx Musculoskeletal: Osteoarthritis Rheumatologic: No pertinent hx Infectious disease: No pertinent hx ENT: No pertinent hx Renal/: No pertinent hx Endocrine: No pertinent hx Dermatology: No pertinent hx PAST SURGICAL HISTORY Past Surgical History: Other (bilateral iliac stents in 2011) Vitals Vital Signs Date Time Temp Pulse Resp B/P (MAP) Pulse Ox O2 Delivery O2 Flow Rate FiO2 07/07/20 07:37 98.3 93 16 136/82 (100) 97 Nasal Cannula 2.0 98.3 ROS: No Nausea, No Chest Pain, No Abdominal Pain, No Increase Cough General: Alert Lungs: Crackles Cardiovascular: S1, S2 Abdomen: Other (Dressing in place) Neuro Exam: Alert Extremities: No Edema Skin: Warm, Dry Labs Laboratory Tests Test 07/06/20 07:00 07/07/20 05:40 White Blood Count 10.6 x10^3/uL (4.0-11.0) Red Blood Count 3.59 x10^6/uL (4.30-5.70) Hemoglobin 11.9 g/dL (13.0-17.5) Hematocrit 36.5 % (39.0-53.0) Mean Corpuscular Volume 102 fL (79-100) Mean Corpuscular Hemoglobin 33 pg (25-35) Mean Corpuscular Hemoglobin Concent 33 g/dL (31-37) Red Cell Distribution Width 15.0 % (11.5-14.5) Platelet Count 122 x10^3/uL (140-400) Neutrophils (%) (Auto) 73 % (31-73) Lymphocytes (%) (Auto) 16 % (24-48) Monocytes (%) (Auto) 11 % (0-9) Eosinophils (%) (Auto) 0 % (0-3) Basophils (%) (Auto) 0 % (0-3) Neutrophils # (Auto) 7.7 x10^3/uL (1.8-7.7) Lymphocytes # (Auto) 1.7 x10^3/uL (1.0-4.8) Monocytes # (Auto) 1.1 x10^3/uL (0.0-1.1) Eosinophils # (Auto) 0.0 x10^3/uL (0.0-0.7) Basophils # (Auto) 0.0 x10^3/uL (0.0-0.2) Sodium Level 143 mmol/L (136-145) Potassium Level 4.2 mmol/L (3.5-5.1) Chloride Level 110 mmol/L (98-107) Carbon Dioxide Level 24 mmol/L (21-32) Anion Gap 9 (6-14) Blood Urea Nitrogen 13 mg/dL (8-26) Creatinine 0.8 mg/dL (0.7-1.3) Estimated GFR (Cockcroft-Gault) 99.3 Glucose Level 120 mg/dL (70-99) Calcium Level 7.9 mg/dL (8.5-10.1) Magnesium Level 1.9 mg/dL (1.8-2.4) 2.0 mg/dL (1.8-2.4) Laboratory Tests Test 07/07/20 05:40 Magnesium Level 2.0 mg/dL (1.8-2.4) Medications Active Scripts Medications Dose Route/Sig Max Daily Dose Days Date Category Aspirin 325 Mg Tablet 325 Mg PO DAILYWBKFT 30 06/21/20 Rx Atorvastatin Calcium 20 Mg Tablet 40 Mg PO QHS 30 06/21/20 Rx Impression . IMPRESSION: 1. Status post aortobifemoral bypass. 2. Status post right femoral endarterectomy. 3. Reimplantation of an inferior mesenteric artery. 4. Chronic obstructive pulmonary disease. 5. Tobacco dependence, in remission. 6. Peripheral arterial disease. 7. Expected dyspnea secondary to recent surgery. OPERATIONS PERFORMED: 1. Infrarenal abdominal aortic to bifemoral artery bypass graft using a 16 x 8 mm Propaten PTFE graft. 2. Suprarenal clamping above the right renal artery and the left accessory renal artery was required for this bypass. 3. Right common femoral artery endarterectomy. 4. Reimplantation of the inferior mesenteric artery into the side of the PTFE graft. 5. The left groin was a redo exposure. Plan . PLAN: Continue supplemental oxygen to keep Sats above 92%, Aggressive pulmonary hygiene with incentive spirometry and bronchodilators. Follow Vascular surgery recs- Status post aortobifemoral bypass with renal endarterectomy Monitor labs closely Pain management with epidural DVT prophylaxis per surgery. PT/OT D/W EDILBERTO RAYMOND MD Jul 07, 2020 07:43
[2020-07-07] MEDS: ELECTROLYTE (ICU) PROTOCOL. MC SCH (09:00)
[2020-07-07] MEDS: FAMOTIDINE 20 MG/2 ML VIAL IVP SCH ×2 (09:54→21:15)
[2020-07-07 10:34] VITALS: BP 119/79
--- NOTE | 2020-07-07 13:30 | PDOC ---
Provider Note Date of Service: DATE: 07/07/20 TIME: 13:27 Provider Note S: pt doing well . Large formed BM, passing flatus. tolerating liquid diet O: vss, afebrile abd soft; dressings removed; incisions ok 2+ pedal pulses, no edema lab ok A: stable post ABF P: d/c epidural and [place] cath in am advance diet as josiah reduce IV rate up in chair as josiah. Justifications for Admission Other Justification LUCY WATERS II, MD Jul 07, 2020 13:30
[2020-07-07] MEDS: NICOTINE 14MG PATCH. TD PRN (14:21)
[2020-07-07 14:43] VITALS: BP 119/70
--- NOTE | 2020-07-07 17:06 | NUR ---
NG TUBE OUT THIS SHIFT, PT TOLERATED REMOVAL, FLATUS PRESENT WELL BOWEL MOVEMENT HAD THIS SHIFT. PT ADVANCED FROM CLEAR LIQUIDS TO GI SOFT THIS SHIFT. TOLERATED DIET WELL
[2020-07-07 19:47] VITALS: BP 121/78
[2020-07-07 22:40] VITALS: BP 115/69
[2020-07-08] MEDS: NORMAL SALINE 35 ML, fentaNYL PF VIAL 250 MCG, ROPIVacaine 0.5% PF 10 ML in EPIDURAL 50 TV EPID PRN ×2 (01:53→06:40)
[2020-07-08 03:00] VITALS: BP 117/75
[2020-07-08] MEDS: IV NORMAL SALINE 1000ML BAG 1,000 ML IV SCH ×2 (05:35→10:29)
[2020-07-08 06:14] LABS: BASO % 0 % (0-3); EOS # 0.1 x10^3/uL (0.0-0.7); EOS % 1 % (0-3); HEMATOCRIT 30.2 % (39.0-53.0); LYMPH # 1.8 x10^3/uL (1.0-4.8); LYMPH % 21 % (24-48); MEAN CORPUSCULAR HEMOGLOBIN 33 pg (25-35); MEAN CORPUSCULAR HGB CONC 33 g/dL (31-37); MEAN CORPUSCULAR VOLUME 100 fL (79-100); MONO # 1.2 x10^3/uL (0.0-1.1); MONO % 13 % (0-9); NEUT # 5.7 x10^3/uL (1.8-7.7); NEUT % 65 % (31-73); PLATELET COUNT 118 x10^3/uL (140-400); RED BLOOD COUNT 3.02 x10^6/uL (4.30-5.70); RED CELL DISTRIBUTION WIDTH 14.8 % (11.5-14.5); WHITE BLOOD COUNT 8.9 x10^3/uL (4.0-11.0)
[2020-07-08 06:23] LABS: CALCIUM 7.4 mg/dL (8.5-10.1); CREATININE 0.7 mg/dL (0.7-1.3); GFR 115.8; POTASSIUM 3.5 mmol/L (3.5-5.1)
[2020-07-08 07:00] VITALS: BP 133/76
--- NOTE | 2020-07-08 07:57 | PDOC ---
PULMONARY PROGRESS NOTES DATE: 07/08/20 TIME: 07:56 Subjective on 02 2lpm has cough sputum better, denies sob No other concerns at this time Comments PAST MEDICAL HISTORY Cardiovascular: Other (PAD) Pulmonary: No pertinent hx CENTRAL NERVOUS SYSTEM: Periperal neuropathy GI: No pertinent hx Heme/Onc: No pertinent hx Hepatobiliary: No pertinent hx Psych: No pertinent hx Musculoskeletal: Osteoarthritis Rheumatologic: No pertinent hx Infectious disease: No pertinent hx ENT: No pertinent hx Renal/: No pertinent hx Endocrine: No pertinent hx Dermatology: No pertinent hx PAST SURGICAL HISTORY Past Surgical History: Other (bilateral iliac stents in 2011) Vitals Vital Signs Date Time Temp Pulse Resp B/P (MAP) Pulse Ox O2 Delivery O2 Flow Rate FiO2 07/08/20 07:00 98.8 77 16 133/76 (95) 98 Nasal Cannula 2.0 98.8 ROS: No Nausea, No Chest Pain, No Abdominal Pain, No Increase Cough General: Alert Lungs: Crackles Cardiovascular: S1, S2 Abdomen: Other (Dressing in place) Neuro Exam: Alert Extremities: No Edema Skin: Warm, Dry Labs Laboratory Tests Test 07/07/20 05:40 07/08/20 06:00 Magnesium Level 2.0 mg/dL (1.8-2.4) White Blood Count 8.9 x10^3/uL (4.0-11.0) Red Blood Count 3.02 x10^6/uL (4.30-5.70) Hemoglobin 10.0 g/dL (13.0-17.5) Hematocrit 30.2 % (39.0-53.0) Mean Corpuscular Volume 100 fL (79-100) Mean Corpuscular Hemoglobin 33 pg (25-35) Mean Corpuscular Hemoglobin Concent 33 g/dL (31-37) Red Cell Distribution Width 14.8 % (11.5-14.5) Platelet Count 118 x10^3/uL (140-400) Neutrophils (%) (Auto) 65 % (31-73) Lymphocytes (%) (Auto) 21 % (24-48) Monocytes (%) (Auto) 13 % (0-9) Eosinophils (%) (Auto) 1 % (0-3) Basophils (%) (Auto) 0 % (0-3) Neutrophils # (Auto) 5.7 x10^3/uL (1.8-7.7) Lymphocytes # (Auto) 1.8 x10^3/uL (1.0-4.8) Monocytes # (Auto) 1.2 x10^3/uL (0.0-1.1) Eosinophils # (Auto) 0.1 x10^3/uL (0.0-0.7) Basophils # (Auto) 0.0 x10^3/uL (0.0-0.2) Sodium Level 141 mmol/L (136-145) Potassium Level 3.5 mmol/L (3.5-5.1) Chloride Level 109 mmol/L (98-107) Carbon Dioxide Level 26 mmol/L (21-32) Anion Gap 6 (6-14) Blood Urea Nitrogen 13 mg/dL (8-26) Creatinine 0.7 mg/dL (0.7-1.3) Estimated GFR (Cockcroft-Gault) 115.8 Glucose Level 106 mg/dL (70-99) Calcium Level 7.4 mg/dL (8.5-10.1) Laboratory Tests Test 07/08/20 06:00 White Blood Count 8.9 x10^3/uL (4.0-11.0) Red Blood Count 3.02 x10^6/uL (4.30-5.70) Hemoglobin 10.0 g/dL (13.0-17.5) Hematocrit 30.2 % (39.0-53.0) Mean Corpuscular Volume 100 fL (79-100) Mean Corpuscular Hemoglobin 33 pg (25-35) Mean Corpuscular Hemoglobin Concent 33 g/dL (31-37) Red Cell Distribution Width 14.8 % (11.5-14.5) Platelet Count 118 x10^3/uL (140-400) Neutrophils (%) (Auto) 65 % (31-73) Lymphocytes (%) (Auto) 21 % (24-48) Monocytes (%) (Auto) 13 % (0-9) Eosinophils (%) (Auto) 1 % (0-3) Basophils (%) (Auto) 0 % (0-3) Neutrophils # (Auto) 5.7 x10^3/uL (1.8-7.7) Lymphocytes # (Auto) 1.8 x10^3/uL (1.0-4.8) Monocytes # (Auto) 1.2 x10^3/uL (0.0-1.1) Eosinophils # (Auto) 0.1 x10^3/uL (0.0-0.7) Basophils # (Auto) 0.0 x10^3/uL (0.0-0.2) Sodium Level 141 mmol/L (136-145) Potassium Level 3.5 mmol/L (3.5-5.1) Chloride Level 109 mmol/L (98-107) Carbon Dioxide Level 26 mmol/L (21-32) Anion Gap 6 (6-14) Blood Urea Nitrogen 13 mg/dL (8-26) Creatinine 0.7 mg/dL (0.7-1.3) Estimated GFR (Cockcroft-Gault) 115.8 Glucose Level 106 mg/dL (70-99) Calcium Level 7.4 mg/dL (8.5-10.1) Medications Active Scripts Medications Dose Route/Sig Max Daily Dose Days Date Category Aspirin 325 Mg Tablet 325 Mg PO [id number] 30 06/21/20 Rx Atorvastatin Calcium 20 Mg Tablet 40 Mg PO QHS 30 06/21/20 Rx Impression . IMPRESSION: 1. Status post aortobifemoral bypass. 2. Status post right femoral endarterectomy. 3. Reimplantation of an inferior mesenteric artery. 4. Chronic obstructive pulmonary disease. 5. Tobacco dependence, in remission. 6. Peripheral arterial disease. 7. Expected dyspnea secondary to recent surgery. OPERATIONS PERFORMED: 1. Infrarenal abdominal aortic to bifemoral artery bypass graft using a 16 x 8 mm Propaten PTFE graft. 2. Suprarenal clamping above the right renal artery and the left accessory renal artery was required for this bypass. 3. Right common femoral artery endarterectomy. 4. Reimplantation of the inferior mesenteric artery into the side of the PTFE graft. 5. The left groin was a redo exposure. Plan . PLAN: Continue supplemental oxygen to keep Sats 90%, Aggressive pulmonary hygiene with incentive spirometry and bronchodilators. the importance of IS use discussed Follow Vascular surgery recs- Status post aortobifemoral bypass with renal endarterectomy Monitor labs closely Pain management with epidural DVT prophylaxis per surgery. PT/OT increase activity D/W EDILBERTO RAYMOND MD Jul 08, 2020 07:57
--- NOTE | 2020-07-08 08:48 | PDOC ---
PROGRESS NOTES Date of Service DATE: 07/08/20 TIME: 08:48 Subjective Subjective He has some incisional pain. No foot or lower leg discomfort. Tolerating diet. Objective Objective Vital Signs Date Time Temp Pulse Resp B/P (MAP) Pulse Ox O2 Delivery O2 Flow Rate FiO2 07/08/20 07:00 98.8 77 16 133/76 (95) 98 Nasal Cannula 2.0 98.8 Intake and Output 07/08/20 06:56 Intake Total 990 ml Output Total 2250 ml Balance -1260 ml Intake Oral 990 ml Output Urine Total 2250 ml Gastric Drainage Total 0 ml # Bowel Movements 1 Physical Exam Abdomen: Soft, No tenderness, Other (midline incision intact) Heart: Regular rate Extremities: Other (bilateral groin incisions intact) General: Alert, No acute distress Lungs: Normal air movement Neck: Supple Assessment Assessment 1. s/p Aortobifemoral bypass for PVD 2. HTN Plan Plan of Care Tolerating diet. Epidural to be removed today. Will remove salinas once epidural cath out. Comment Review of Relevant I have reviewed the following items mai (where applicable) has been applied. Labs Laboratory Tests Test 07/07/20 05:40 07/08/20 06:00 Magnesium Level 2.0 mg/dL (1.8-2.4) White Blood Count 8.9 x10^3/uL (4.0-11.0) Red Blood Count 3.02 x10^6/uL (4.30-5.70) Hemoglobin 10.0 g/dL (13.0-17.5) Hematocrit 30.2 % (39.0-53.0) Mean Corpuscular Volume 100 fL (79-100) Mean Corpuscular Hemoglobin 33 pg (25-35) Mean Corpuscular Hemoglobin Concent 33 g/dL (31-37) Red Cell Distribution Width 14.8 % (11.5-14.5) Platelet Count 118 x10^3/uL (140-400) Neutrophils (%) (Auto) 65 % (31-73) Lymphocytes (%) (Auto) 21 % (24-48) Monocytes (%) (Auto) 13 % (0-9) Eosinophils (%) (Auto) 1 % (0-3) Basophils (%) (Auto) 0 % (0-3) Neutrophils # (Auto) 5.7 x10^3/uL (1.8-7.7) Lymphocytes # (Auto) 1.8 x10^3/uL (1.0-4.8) Monocytes # (Auto) 1.2 x10^3/uL (0.0-1.1) Eosinophils # (Auto) 0.1 x10^3/uL (0.0-0.7) Basophils # (Auto) 0.0 x10^3/uL (0.0-0.2) Sodium Level 141 mmol/L (136-145) Potassium Level 3.5 mmol/L (3.5-5.1) Chloride Level 109 mmol/L (98-107) Carbon Dioxide Level 26 mmol/L (21-32) Anion Gap 6 (6-14) Blood Urea Nitrogen 13 mg/dL (8-26) Creatinine 0.7 mg/dL (0.7-1.3) Estimated GFR (Cockcroft-Gault) 115.8 Glucose Level 106 mg/dL (70-99) Calcium Level 7.4 mg/dL (8.5-10.1) Laboratory Tests Test 07/08/20 06:00 White Blood Count 8.9 x10^3/uL (4.0-11.0) Red Blood Count 3.02 x10^6/uL (4.30-5.70) Hemoglobin 10.0 g/dL (13.0-17.5) Hematocrit 30.2 % (39.0-53.0) Mean Corpuscular Volume 100 fL (79-100) Mean Corpuscular Hemoglobin 33 pg (25-35) Mean Corpuscular Hemoglobin Concent 33 g/dL (31-37) Red Cell Distribution Width 14.8 % (11.5-14.5) Platelet Count 118 x10^3/uL (140-400) Neutrophils (%) (Auto) 65 % (31-73) Lymphocytes (%) (Auto) 21 % (24-48) Monocytes (%) (Auto) 13 % (0-9) Eosinophils (%) (Auto) 1 % (0-3) Basophils (%) (Auto) 0 % (0-3) Neutrophils # (Auto) 5.7 x10^3/uL (1.8-7.7) Lymphocytes # (Auto) 1.8 x10^3/uL (1.0-4.8) Monocytes # (Auto) 1.2 x10^3/uL (0.0-1.1) Eosinophils # (Auto) 0.1 x10^3/uL (0.0-0.7) Basophils # (Auto) 0.0 x10^3/uL (0.0-0.2) Sodium Level 141 mmol/L (136-145) Potassium Level 3.5 mmol/L (3.5-5.1) Chloride Level 109 mmol/L (98-107) Carbon Dioxide Level 26 mmol/L (21-32) Anion Gap 6 (6-14) Blood Urea Nitrogen 13 mg/dL (8-26) Creatinine 0.7 mg/dL (0.7-1.3) Estimated GFR (Cockcroft-Gault) 115.8 Glucose Level 106 mg/dL (70-99) Calcium Level 7.4 mg/dL (8.5-10.1) Medications Current Medications Heparin Sodium (Porcine) 5000 unit/Sodium Chloride 505 ml @ 505 mls/hr 1X ONCE IRR Last administered on 07/04/20at 08:33; Start 07/04/20 at 06:00; Stop 07/04/20 at 06:59; Status DC Fentanyl Citrate (Fentanyl 2ml Vial) 25 mcg PRN Q5MIN PRN IVP MILD PAIN 1-3; Start 07/04/20 at 06:00; Stop 07/05/20 at 05:59; Status DC Fentanyl Citrate (Fentanyl 2ml Vial) 50 mcg PRN Q5MIN PRN IVP MODERATE PAIN 4- 6; Start 07/04/20 at 06:00; Stop 07/05/20 at 05:59; Status DC Morphine Sulfate (Morphine Sulfate) 1 mg PRN Q10MIN PRN IVP SEVERE PAIN 7-10; Start 07/04/20 at 06:00; Stop 07/05/20 at 05:59; Status DC Ringer's Solution 1,000 ml @ 30 mls/hr Q24H IV Last administered on 07/04/20at 06:49; Start 07/04/20 at 06:00; Stop 07/04/20 at 17:59; Status DC Hydromorphone HCl (Dilaudid) 0.5 mg PRN Q10MIN PRN IVP SEVERE PAIN 7-10, 2nd CHOICE; Start 07/04/20 at 06:00; Stop 07/05/20 at 05:59; Status DC Prochlorperazine Edisylate (Compazine) 5 mg PACU PRN PRN IVP NAUSEA, MRX1; Start 07/04/20 at 06:00; Stop 07/05/20 at 05:59; Status DC Cefazolin Sodium/ Dextrose 50 ml @ 100 mls/hr 1X ONCE IV Last administered on 07/04/20at 08:00; Start 07/04/20 at 06:00; Stop 07/04/20 at 06:29; Status DC Propofol (Diprivan) 200 mg STK-MED ONCE IV ; Start 07/04/20 at 06:48; Stop 07/04/20 at 06:48; Status DC Lidocaine HCl (Lidocaine Pf 2% Vial) 5 ml STK-MED ONCE .ROUTE ; Start 07/04/20 at 06:48; Stop 07/04/20 at 06:48; Status DC Fentanyl Citrate (Fentanyl 5ml Vial) 250 mcg STK-MED ONCE .ROUTE ; Start 07/04/20 at 06:49; Stop 07/04/20 at 06:50; Status DC Rocuronium [place] (Zemuron) 50 mg STK-MED ONCE .ROUTE ; Start 07/04/20 at 06:50; Stop 07/04/20 at 06:50; Status DC Midazolam HCl (Versed) 2 mg STK-MED ONCE .ROUTE ; Start 07/04/20 at 07:02; Stop 07/04/20 at 07:02; Status DC Cellulose (Surgicel Fibrillar 1x2) 1 each STK-MED ONCE .ROUTE Last administered on 07/04/20at 08:33; Start 07/04/20 at 07:05; Stop 07/04/20 at 07:05; Status DC Cellulose (Surgicel Fibrillar 1x2) 1 each STK-MED ONCE .ROUTE Last administered on 07/04/20at 08:33; Start 07/04/20 at 07:05; Stop 07/04/20 at 07:05; Status DC Midazolam HCl (Versed) 2 mg STK-MED ONCE .ROUTE ; Start 07/04/20 at 07:10; Stop 07/04/20 at 07:11; Status DC Lidocaine HCl (Xylocaine-Mpf 1% 2ml Vial) 2 ml STK-MED ONCE .ROUTE ; Start 07/04/20 at 07:10; Stop 07/04/20 at 07:11; Status DC Ropivacaine (Naropin 0.5%) 20 ml STK-MED ONCE .ROUTE ; Start 07/04/20 at 07:10; Stop 07/04/20 at 07:11; Status DC Heparin Sodium (Porcine) (Heparin Sodium) 30,000 unit STK-MED ONCE .ROUTE ; Start 07/04/20 at 07:15; Stop 07/04/20 at 07:16; Status DC Ropivacaine (Naropin 0.5%) 20 ml STK-MED ONCE .ROUTE ; Start 07/04/20 at 07:23; Stop 07/04/20 at 07:24; Status DC Cefazolin Sodium (Ancef) 1 gm Q8H IVP ; Start 07/04/20 at 18:00; Stop 07/05/20 at 02:01; Status Cancel Famotidine (Pepcid Vial) 20 mg BID IVP Last administered on 07/07/20at 21:15; Start 07/04/20 at 21:00 Info (Icu Electrolyte Protocol) 1 ea DAILY MC Last administered on 07/07/20at 09:00; Start 07/05/20 at 09:00 Naloxone HCl (Narcan) 0.1 mg PRN Q2MIN PRN IV SEE ADMIN INSTRUCTIONS; Start 07/04/20 at 07:30 Sodium Chloride (Normal Saline Flush) 3 ml QSHIFT PRN IV AFTER MEDS AND BLOOD DRAWS; Start 07/04/20 at 07:30 Sodium Chloride 1,000 ml @ 75 mls/hr [id number] IV Last administered on 07/08/20at 05:35; Start 07/04/20 at 07:30 Naloxone HCl (Narcan) 0.4 mg PRN Q2MIN PRN IV SEE INSTRUCTIONS; Start 07/04/20 at 07:30 Sodium Chloride 1,000 ml @ 25 mls/hr Q24H IV ; Start 07/04/20 at 07:30; Stop 07/04/20 at 17:58; Status DC Morphine Sulfate (Morphine Sulfate) 2 mg PRN Q1HR PRN IV PAIN Last administered on 07/07/20at 03:16; Start 07/04/20 at 07:30 Oxycodone/ Acetaminophen (Percocet 5/325) 1 tab PRN Q4HRS PRN PO MILD PAIN, 1ST CHOICE; Start 07/04/20 at 07:30 Oxycodone/ Acetaminophen (Percocet 5/325) 2 tab PRN Q4HRS PRN PO MODERATE PAIN, SEVERE PAIN; Start 07/04/20 at 07:30 Ondansetron HCl (Zofran) 4 mg PRN Q6HRS PRN IVP NAUESA, 1ST CHOICE; Start 07/04/20 at 07:30 Prochlorperazine Edisylate (Compazine) 5 mg PRN Q6HRS PRN IV N/V, 2nd Choice, MR X1; Start 07/04/20 at 07:30 Hydralazine HCl (Apresoline Inj) 10 mg PRN Q4HRS PRN IVP ELEVATED BP, SEE COMMENTS; Start 07/04/20 at 07:30 Labetalol HCl (Normodyne Iv Push) 10 mg PRN Q2HR PRN IVP HYPERTENSION; Start 07/04/20 at 07:30 Phenylephrine HCl (Jeff-Synephrine Inj) 10 mg STK-MED ONCE .ROUTE ; Start 07/04/20 at 08:13; Stop 07/04/20 at 08:14; Status DC Albumin Human 500 ml @ As Directed STK-MED ONCE IV ; Start 07/04/20 at 08:13; Stop 07/04/20 at 08:14; Status DC Sevoflurane (Ultane) 90 ml STK-MED ONCE IH ; Start 07/04/20 at 08:13; Stop 07/04/20 at 08:14; Status DC Rocuronium [place] (Zemuron) 50 mg STK-MED ONCE .ROUTE ; Start 07/04/20 at 08:34; Stop 07/04/20 at 08:34; Status DC Sodium Chloride 35 ml/Fentanyl Citrate 250 mcg/ Ropivacaine 10 ml/ Epidural Dosage Infused (Pha) 50 ml @ 0 mls/hr CONT PRN EPID SEE PROTOCOL TABLE Last administered on 07/08/20at 06:40; Start 07/04/20 at 10:00 Glycopyrrolate (Robinul) 1 mg STK-MED ONCE .ROUTE ; Start 07/04/20 at 09:06; Stop 07/04/20 at 09:07; Status DC Fentanyl Citrate (Fentanyl 5ml Vial) 250 mcg STK-MED ONCE .ROUTE ; Start 07/04/20 at 09:17; Stop 07/04/20 at 09:18; Status DC Rocuronium [place] (Zemuron) 50 mg STK-MED ONCE .ROUTE ; Start 07/04/20 at 10:37; Stop 07/04/20 at 10:38; Status DC Cellulose (Surgicel Fibrillar 1x2) 1 each STK-MED ONCE .ROUTE Last administered on 07/04/20at 08:33; Start 07/04/20 at 10:52; Stop 07/04/20 at 10:52; Status DC Cellulose (Surgicel Fibrillar 1x2) 1 each STK-MED ONCE .ROUTE Last administered on 07/04/20at 08:33; Start 07/04/20 at 10:52; Stop 07/04/20 at 10:53; Status DC Neostigmine [place] (Neostigmine Methylsulfate) 5 mg STK-MED ONCE .ROUTE ; Start 07/04/20 at 11:20; Stop 07/04/20 at 11:20; Status DC Protamine Sulfate (Protamine) 50 mg STK-MED ONCE IV ; Start 07/04/20 at 11:27; Stop 07/04/20 at 11:27; Status DC Heparin Sodium (Porcine) (Heparin Sodium) 10,000 unit STK-MED ONCE .ROUTE ; Start 07/04/20 at 11:42; Stop 07/04/20 at 11:42; Status DC Cellulose (Surgicel Fibrillar 1x2) 3 each STK-MED ONCE .ROUTE Last administered on 07/04/20at 08:33; Start 07/04/20 at 12:03; Stop 07/04/20 at 12:03; Status DC Protamine Sulfate (Protamine) 50 mg STK-MED ONCE IV ; Start 07/04/20 at 12:04; Stop 07/04/20 at 12:04; Status DC Cellulose (Surgicel Fibrillar 1x2) 5 each STK-MED ONCE .ROUTE Last administered on 07/04/20at 08:33; Start 07/04/20 at 12:32; Stop 07/04/20 at 12:32; Status DC Aspirin (Tc Aspirin) 325 mg DAILY ONCE PO ; Start 07/05/20 at 09:00; Stop 07/05/20 at 09:01; Status DC Meperidine HCl (Demerol) 12.5 mg 1X ONCE IV Last administered on 07/04/20at 14:40; Start 07/04/20 at 14:45; Stop 07/04/20 at 14:46; Status DC Meperidine HCl (Demerol) 25 mg STK-MED ONCE .ROUTE ; Start 07/04/20 at 14:29; Stop 07/04/20 at 14:30; Status DC Cefazolin Sodium (Ancef) 1 gm STK-MED ONCE IVP ; Start 07/04/20 at 12:02; Stop 07/04/20 at 18:00; Status DC Cefazolin Sodium (Ancef) 1 gm Q8H IVP Last administered on 07/05/20at 03:40; Start 07/04/20 at 20:00; Stop 07/05/20 at 04:01; Status DC Albuterol Sulfate (Ventolin Neb Soln) 2.5 mg PRN Q6HRS PRN NEB SHORTNESS OF BREATH; Start 07/05/20 at 11:45; Status UNV Albuterol Sulfate (Ventolin Neb Soln) 2.5 mg PRN Q6HRS PRN NEB SHORTNESS OF BREATH; Start 07/05/20 at 11:45 Aspirin (Aspirin Rectal Supp) 300 mg 1X ONCE [place] Last administered on 07/05/20at 12:49; Start 07/05/20 at 12:30; Stop 07/05/20 at 12:31; Status DC Calcium Gluconate 1000 mg/Sodium Chloride 110 ml @ 220 mls/hr 1X ONCE IV Last administered on 07/05/20at 12:56; Start 07/05/20 at 12:30; Stop 07/05/20 at 12:59; Status DC Nicotine (Nicoderm Cq 14mg) 1 patch PRN DAILY PRN TD SMOKING CESSATION Last administered on 07/07/20at 14:21; Start 07/07/20 at 13:45 Active Scripts Active Aspirin 325 Mg Tablet 325 Mg PO [id number] 30 Days Atorvastatin Calcium 20 Mg Tablet 40 Mg PO QHS 30 Days Vitals/I & O Vital Sign - Last 24 Hours 07/07/20 07/07/20 07/07/20 07/07/20 10:34 11:20 11:50 14:43 Temp 98.0 99.6 98.0 99.6 Pulse 85 90 Resp 20 20 B/P (MAP) 119/79 (92) 119/70 (86) Pulse Ox 95 95 95 99 O2 Delivery Nasal Cannula Room Air Nasal Cannula O2 Flow Rate 2.0 2.0 07/07/20 07/07/20 07/07/20 07/07/20 16:36 17:06 19:47 20:26 Temp 99.0 99.0 Pulse 95 Resp 16 B/P (MAP) 121/78 (92) Pulse Ox 99 99 96 O2 Delivery Nasal Cannula Nasal Cannula Nasal Cannula Nasal Cannula O2 Flow Rate 2.0 2.0 2.0 2.0 07/07/20 07/07/20 07/07/20 07/08/20 21:23 22:21 22:40 01:53 Temp 99.3 99.3 Pulse 93 Resp 18 18 16 18 B/P (MAP) 115/69 (84) Pulse Ox 96 96 96 96 O2 Delivery Nasal Cannula Nasal Cannula Nasal Cannula Nasal Cannula O2 Flow Rate 2.0 2.0 2.0 2.0 07/08/20 07/08/20 07/08/20 07/08/20 02:30 03:00 06:40 07:00 Temp 98.9 98.8 98.9 98.8 Pulse 81 77 Resp 16 18 16 B/P (MAP) 117/75 (89) 133/76 (95) Pulse Ox 97 97 98 O2 Delivery Nasal Cannula Nasal Cannula Nasal Cannula Nasal Cannula O2 Flow Rate 2.0 2.0 2.0 Intake and Output 07/07/20 07/07/20 07/08/20 14:56 22:56 06:56 Intake Total 240 ml 600 ml 150 ml Output Total 1300 ml 400 ml 550 ml Balance -1060 ml 200 ml -400 ml Justifications for Admission Other Justification JIM MAI MD Jul 08, 2020 08:48
[2020-07-08] MEDS: ONDANSETRON PF 4 MG/2 ML VIAL. IVP PRN ×2 (08:50→16:47)
[2020-07-08] MEDS: NICOTINE 14MG PATCH. TD PRN (08:51)
[2020-07-08] MEDS: oxyCODONE/APAP 5/325 1 TAB TABLET PO PRN ×3 (08:51→21:37)
[2020-07-08] MEDS: FAMOTIDINE 20 MG/2 ML VIAL IVP SCH ×2 (08:51→21:18)
[2020-07-08] MEDS: ELECTROLYTE (ICU) PROTOCOL. MC SCH (08:53)
[2020-07-08] MEDS: MORPHINE SULFATE 2 MG/ML VIAL. IV PRN ×2 (10:44→12:31)
[2020-07-08 10:47] VITALS: BP 120/70
[2020-07-08] MEDS ORDERED: MORPHINE SULFATE 2 MG/ML VIAL. IV PRN (13:45)
[2020-07-08 14:52] VITALS: BP 132/82
[2020-07-08] MEDS: MORPHINE SULFATE 4 MG/ML VIAL. IV PRN ×4 (16:45→22:40)
--- NOTE | 2020-07-08 18:00 | NUR ---
pt had epidural removed this morning by anesthesia. fluids off and fentanyl discontinued. pty stated no pain and is able to take po meds at this time. [place] was removed and pt did not urinate for approx 6 hours bladder scan showed approx 400 cc urine new 16 f sal[place] cath inserted per protocol. Pt requested salinas be placed and kept there as he did not want it removed until all the swelling in his testicles were gone.
[2020-07-08 19:17] VITALS: BP 145/82
[2020-07-08 23:23] VITALS: BP 123/68
[2020-07-09 03:23] VITALS: BP 129/73
[2020-07-09] MEDS: MORPHINE SULFATE 4 MG/ML VIAL. IV PRN ×2 (03:27→08:36)
[2020-07-09] MEDS: oxyCODONE/APAP 5/325 1 TAB TABLET PO PRN ×3 (03:29→20:30)
[2020-07-09 07:00] VITALS: BP 133/70
--- NOTE | 2020-07-09 08:16 | PDOC ---
PROGRESS NOTES Date of Service DATE: 07/09/20 TIME: 08:12 Subjective Subjective He had urinary retention last pm requiring replacement of [place] catheter early this am. Otherwise, without complaints. Tolerating diet. Objective Objective Vital Signs Date Time Temp Pulse Resp B/P (MAP) Pulse Ox O2 Delivery O2 Flow Rate FiO2 07/09/20 05:08 17 95 Nasal Cannula 2.0 07/09/20 03:23 97.6 68 129/73 (91) 97.6 Intake and Output 07/09/20 07:00 Intake Total 740 ml Output Total 1150 ml Balance -410 ml Intake Oral 740 ml Output Urine Total 1150 ml # Bowel Movements 1 Physical Exam Abdomen: Soft, No tenderness, Other (Midline incision intact) Heart: Regular rate Extremities: Other (Groin incisions intact, no edema) General: Alert, No acute distress Lungs: Normal air movement Neck: Supple Assessment Assessment 1. s/p [id number] bypass for severe peripheral artery disease 2. Urinary retention requiring replacement of catheter Plan Plan of Care Will resume aspirin and atorvastatin. Flomax started for urinary retention. Will plan to remove [place] catheter again in am. Increase activity as tolerated. Comment Review of Relevant I have reviewed the following items mai (where applicable) has been applied. Labs Laboratory Tests Test 07/08/20 06:00 White Blood Count 8.9 x10^3/uL (4.0-11.0) Red Blood Count 3.02 x10^6/uL (4.30-5.70) Hemoglobin 10.0 g/dL (13.0-17.5) Hematocrit 30.2 % (39.0-53.0) Mean Corpuscular Volume 100 fL (79-100) Mean Corpuscular Hemoglobin 33 pg (25-35) Mean Corpuscular Hemoglobin Concent 33 g/dL (31-37) Red Cell Distribution Width 14.8 % (11.5-14.5) Platelet Count 118 x10^3/uL (140-400) Neutrophils (%) (Auto) 65 % (31-73) Lymphocytes (%) (Auto) 21 % (24-48) Monocytes (%) (Auto) 13 % (0-9) Eosinophils (%) (Auto) 1 % (0-3) Basophils (%) (Auto) 0 % (0-3) Neutrophils # (Auto) 5.7 x10^3/uL (1.8-7.7) Lymphocytes # (Auto) 1.8 x10^3/uL (1.0-4.8) Monocytes # (Auto) 1.2 x10^3/uL (0.0-1.1) Eosinophils # (Auto) 0.1 x10^3/uL (0.0-0.7) Basophils # (Auto) 0.0 x10^3/uL (0.0-0.2) Sodium Level 141 mmol/L (136-145) Potassium Level 3.5 mmol/L (3.5-5.1) Chloride Level 109 mmol/L (98-107) Carbon Dioxide Level 26 mmol/L (21-32) Anion Gap 6 (6-14) Blood Urea Nitrogen 13 mg/dL (8-26) Creatinine 0.7 mg/dL (0.7-1.3) Estimated GFR (Cockcroft-Gault) 115.8 Glucose Level 106 mg/dL (70-99) Calcium Level 7.4 mg/dL (8.5-10.1) Medications Current Medications Heparin Sodium (Porcine) 5000 unit/Sodium Chloride 505 ml @ 505 mls/hr 1X ONCE IRR Last administered on 07/04/20at 08:33; Start 07/04/20 at 06:00; Stop 07/04/20 at 06:59; Status DC Fentanyl Citrate (Fentanyl 2ml Vial) 25 mcg PRN Q5MIN PRN IVP MILD PAIN 1-3; Start 07/04/20 at 06:00; Stop 07/05/20 at 05:59; Status DC Fentanyl Citrate (Fentanyl 2ml Vial) 50 mcg PRN Q5MIN PRN IVP MODERATE PAIN 4- 6; Start 07/04/20 at 06:00; Stop 07/05/20 at 05:59; Status DC Morphine Sulfate (Morphine Sulfate) 1 mg PRN Q10MIN PRN IVP SEVERE PAIN 7-10; Start 07/04/20 at 06:00; Stop 07/05/20 at 05:59; Status DC Ringer's Solution 1,000 ml @ 30 mls/hr Q24H IV Last administered on 07/04/20at 06:49; Start 07/04/20 at 06:00; Stop 07/04/20 at 17:59; Status DC Hydromorphone HCl (Dilaudid) 0.5 mg PRN Q10MIN PRN IVP SEVERE PAIN 7-10, 2nd CHOICE; Start 07/04/20 at 06:00; Stop 07/05/20 at 05:59; Status DC Prochlorperazine Edisylate (Compazine) 5 mg PACU PRN PRN IVP NAUSEA, MRX1; Start 07/04/20 at 06:00; Stop 07/05/20 at 05:59; Status DC Cefazolin Sodium/ Dextrose 50 ml @ 100 mls/hr 1X ONCE IV Last administered on 07/04/20at 08:00; Start 07/04/20 at 06:00; Stop 07/04/20 at 06:29; Status DC Propofol (Diprivan) 200 mg STK-MED ONCE IV ; Start 07/04/20 at 06:48; Stop 07/04/20 at 06:48; Status DC Lidocaine HCl (Lidocaine Pf 2% Vial) 5 ml STK-MED ONCE .ROUTE ; Start 07/04/20 at 06:48; Stop 07/04/20 at 06:48; Status DC Fentanyl Citrate (Fentanyl 5ml Vial) 250 mcg STK-MED ONCE .ROUTE ; Start 07/04/20 at 06:49; Stop 07/04/20 at 06:50; Status DC Rocuronium [place] (Zemuron) 50 mg STK-MED ONCE .ROUTE ; Start 07/04/20 at 06:50; Stop 07/04/20 at 06:50; Status DC Midazolam HCl (Versed) 2 mg STK-MED ONCE .ROUTE ; Start 07/04/20 at 07:02; Stop 07/04/20 at 07:02; Status DC Cellulose (Surgicel Fibrillar 1x2) 1 each STK-MED ONCE .ROUTE Last administered on 07/04/20at 08:33; Start 07/04/20 at 07:05; Stop 07/04/20 at 07:05; Status DC Cellulose (Surgicel Fibrillar 1x2) 1 each STK-MED ONCE .ROUTE Last administered on 07/04/20at 08:33; Start 07/04/20 at 07:05; Stop 07/04/20 at 07:05; Status DC Midazolam HCl (Versed) 2 mg STK-MED ONCE .ROUTE ; Start 07/04/20 at 07:10; Stop 07/04/20 at 07:11; Status DC Lidocaine HCl (Xylocaine-Mpf 1% 2ml Vial) 2 ml STK-MED ONCE .ROUTE ; Start 07/04/20 at 07:10; Stop 07/04/20 at 07:11; Status DC Ropivacaine (Naropin 0.5%) 20 ml STK-MED ONCE .ROUTE ; Start 07/04/20 at 07:10; Stop 07/04/20 at 07:11; Status DC Heparin Sodium (Porcine) (Heparin Sodium) 30,000 unit STK-MED ONCE .ROUTE ; Start 07/04/20 at 07:15; Stop 07/04/20 at 07:16; Status DC Ropivacaine (Naropin 0.5%) 20 ml STK-MED ONCE .ROUTE ; Start 07/04/20 at 07:23; Stop 07/04/20 at 07:24; Status DC Cefazolin Sodium (Ancef) 1 gm Q8H IVP ; Start 07/04/20 at 18:00; Stop 07/05/20 at 02:01; Status Cancel Famotidine (Pepcid Vial) 20 mg BID IVP Last administered on 07/08/20at 21:18; Start 07/04/20 at 21:00 Info (Icu Electrolyte Protocol) 1 ea DAILY MC Last administered on 07/07/20at 09:00; Start 07/05/20 at 09:00 Naloxone HCl (Narcan) 0.1 mg PRN Q2MIN PRN IV SEE ADMIN INSTRUCTIONS; Start 07/04/20 at 07:30 Sodium Chloride (Normal Saline Flush) 3 ml QSHIFT PRN IV AFTER MEDS AND BLOOD DRAWS; Start 07/04/20 at 07:30 Sodium Chloride 1,000 ml @ 75 mls/hr [id number] IV Last administered on 07/08/20at 05:35; Start 07/04/20 at 07:30 Naloxone HCl (Narcan) 0.4 mg PRN Q2MIN PRN IV SEE INSTRUCTIONS; Start 07/04/20 at 07:30 Sodium Chloride 1,000 ml @ 25 mls/hr Q24H IV ; Start 07/04/20 at 07:30; Stop 07/04/20 at 17:58; Status DC Morphine Sulfate (Morphine Sulfate) 2 mg PRN Q1HR PRN IV PAIN Last administered on 07/08/20at 12:31; Start 07/04/20 at 07:30 Oxycodone/ Acetaminophen (Percocet 5/325) 1 tab PRN Q4HRS PRN PO MILD PAIN, 1ST CHOICE Last administered on 07/08/20at 12:31; Start 07/04/20 at 07:30 Oxycodone/ Acetaminophen (Percocet 5/325) 2 tab PRN Q4HRS PRN PO MODERATE PAIN, SEVERE PAIN Last administered on 07/09/20at 03:29; Start 07/04/20 at 07:30 Ondansetron HCl (Zofran) 4 mg PRN Q6HRS PRN IVP NAUESA, 1ST CHOICE Last administered on 07/08/20at 16:47; Start 07/04/20 at 07:30 Prochlorperazine Edisylate (Compazine) 5 mg PRN Q6HRS PRN IV N/V, 2nd Choice, MR X1; Start 07/04/20 at 07:30 Hydralazine HCl (Apresoline Inj) 10 mg PRN Q4HRS PRN IVP ELEVATED BP, SEE COMMENTS; Start 07/04/20 at 07:30 Labetalol HCl (Normodyne Iv Push) 10 mg PRN Q2HR PRN IVP HYPERTENSION; Start 07/04/20 at 07:30 Phenylephrine HCl (Jeff-Synephrine Inj) 10 mg STK-MED ONCE .ROUTE ; Start 07/04/20 at 08:13; Stop 07/04/20 at 08:14; Status DC Albumin Human 500 ml @ As Directed STK-MED ONCE IV ; Start 07/04/20 at 08:13; Stop 07/04/20 at 08:14; Status DC Sevoflurane (Ultane) 90 ml STK-MED ONCE IH ; Start 07/04/20 at 08:13; Stop 07/04/20 at 08:14; Status DC Rocuronium [place] (Zemuron) 50 mg STK-MED ONCE .ROUTE ; Start 07/04/20 at 08:34; Stop 07/04/20 at 08:34; Status DC Sodium Chloride 35 ml/Fentanyl Citrate 250 mcg/ Ropivacaine 10 ml/ Epidural Dosage Infused (Pha) 50 ml @ 0 mls/hr CONT PRN EPID SEE PROTOCOL TABLE Last administered on 07/08/20at 06:40; Start 07/04/20 at 10:00 Glycopyrrolate (Robinul) 1 mg STK-MED ONCE .ROUTE ; Start 07/04/20 at 09:06; Stop 07/04/20 at 09:07; Status DC Fentanyl Citrate (Fentanyl 5ml Vial) 250 mcg STK-MED ONCE .ROUTE ; Start 07/04/20 at 09:17; Stop 07/04/20 at 09:18; Status DC Rocuronium [place] (Zemuron) 50 mg STK-MED ONCE .ROUTE ; Start 07/04/20 at 10:37; Stop 07/04/20 at 10:38; Status DC Cellulose (Surgicel Fibrillar 1x2) 1 each STK-MED ONCE .ROUTE Last administered on 07/04/20at 08:33; Start 07/04/20 at 10:52; Stop 07/04/20 at 10:52; Status DC Cellulose (Surgicel Fibrillar 1x2) 1 each STK-MED ONCE .ROUTE Last administered on 07/04/20at 08:33; Start 07/04/20 at 10:52; Stop 07/04/20 at 10:53; Status DC Neostigmine [place] (Neostigmine Methylsulfate) 5 mg STK-MED ONCE .ROUTE ; Start 07/04/20 at 11:20; Stop 07/04/20 at 11:20; Status DC Protamine Sulfate (Protamine) 50 mg STK-MED ONCE IV ; Start 07/04/20 at 11:27; Stop 07/04/20 at 11:27; Status DC Heparin Sodium (Porcine) (Heparin Sodium) 10,000 unit STK-MED ONCE .ROUTE ; Start 07/04/20 at 11:42; Stop 07/04/20 at 11:42; Status DC Cellulose (Surgicel Fibrillar 1x2) 3 each STK-MED ONCE .ROUTE Last administered on 07/04/20at 08:33; Start 07/04/20 at 12:03; Stop 07/04/20 at 12:03; Status DC Protamine Sulfate (Protamine) 50 mg STK-MED ONCE IV ; Start 07/04/20 at 12:04; Stop 07/04/20 at 12:04; Status DC Cellulose (Surgicel Fibrillar 1x2) 5 each STK-MED ONCE .ROUTE Last administered on 07/04/20at 08:33; Start 07/04/20 at 12:32; Stop 07/04/20 at 12:32; Status DC Aspirin (Tc Aspirin) 325 mg DAILY ONCE PO ; Start 07/05/20 at 09:00; Stop 07/05/20 at 09:01; Status DC Meperidine HCl (Demerol) 12.5 mg 1X ONCE IV Last administered on 07/04/20at 14:40; Start 07/04/20 at 14:45; Stop 07/04/20 at 14:46; Status DC Meperidine HCl (Demerol) 25 mg STK-MED ONCE .ROUTE ; Start 07/04/20 at 14:29; Stop 07/04/20 at 14:30; Status DC Cefazolin Sodium (Ancef) 1 gm STK-MED ONCE IVP ; Start 07/04/20 at 12:02; Stop 07/04/20 at 18:00; Status DC Cefazolin Sodium (Ancef) 1 gm Q8H IVP Last administered on 07/05/20at 03:40; Start 07/04/20 at 20:00; Stop 07/05/20 at 04:01; Status DC Albuterol Sulfate (Ventolin Neb Soln) 2.5 mg PRN Q6HRS PRN NEB SHORTNESS OF BREATH; Start 07/05/20 at 11:45; Status UNV Albuterol Sulfate (Ventolin Neb Soln) 2.5 mg PRN Q6HRS PRN NEB SHORTNESS OF BREATH; Start 07/05/20 at 11:45 Aspirin (Aspirin Rectal Supp) 300 mg 1X ONCE DE Last administered on 07/05/20at 12:49; Start 07/05/20 at 12:30; Stop 07/05/20 at 12:31; Status DC Calcium Gluconate 1000 mg/Sodium Chloride 110 ml @ 220 mls/hr 1X ONCE IV Last administered on 07/05/20at 12:56; Start 07/05/20 at 12:30; Stop 07/05/20 at 12:59; Status DC Nicotine (Nicoderm Cq 14mg) 1 patch PRN DAILY PRN TD SMOKING CESSATION Last administered on 07/08/20at 08:51; Start 07/07/20 at 13:45 Morphine Sulfate (Morphine Sulfate) 4 mg PRN Q1HR PRN IV MODERATE PAIN 4-6 Last administered on 07/09/20at 03:27; Start 07/08/20 at 13:45 Morphine Sulfate (Morphine Sulfate) 6 mg PRN Q1HR PRN IV SEVERE PAIN 7-10 Last administered on 07/08/20at 14:02; Start 07/08/20 at 13:45 Active Scripts Active Aspirin 325 Mg Tablet 325 Mg PO DAILYWBKFT 30 Days Atorvastatin Calcium 20 Mg Tablet 40 Mg PO QHS 30 Days Vitals/I & O Vital Sign - Last 24 Hours 07/08/20 07/08/20 07/08/20 07/08/20 08:51 09:51 10:44 10:47 Temp 98.7 98.7 Pulse 88 Resp 16 B/P (MAP) 120/70 (87) Pulse Ox 98 98 98 97 O2 Delivery Nasal Cannula Nasal Cannula Room Air Nasal Cannula O2 Flow Rate 2.0 2.0 2.0 07/08/20 07/08/20 07/08/20 07/08/20 11:14 12:31 12:31 13:01 Pulse Ox 97 97 97 97 O2 Delivery Nasal Cannula Room Air Room Air Room Air O2 Flow Rate 2.0 07/08/20 07/08/20 07/08/20 07/08/20 13:31 14:02 14:32 14:52 Temp 98.1 98.1 Pulse 76 Resp 16 B/P (MAP) 132/82 (99) Pulse Ox 97 96 96 O2 Delivery Room Air Room Air Room Air Nasal Cannula O2 Flow Rate 2.0 2.0 2.0 07/08/20 07/08/20 07/08/20 07/08/20 16:45 17:15 19:17 19:40 Temp 99.0 99.0 Pulse 74 Resp 16 18 B/P (MAP) 145/82 (103) Pulse Ox 96 96 96 O2 Delivery Room Air Room Air Room Air Room Air O2 Flow Rate 2.0 2.0 07/08/20 07/08/20 07/08/20 07/08/20 20:11 20:12 21:21 21:37 Resp 18 18 18 Pulse Ox 96 96 O2 Delivery Room Air Nasal Cannula Nasal Cannula Nasal Cannula O2 Flow Rate 2.0 2.0 2.0 2.0 207/08/20 07/08/20 07/08/20 22:30 22:30 22:40 23:00 Resp 18 18 18 18 Pulse Ox 96 96 96 96 O2 Delivery Nasal Cannula Nasal Cannula Nasal Cannula Nasal Cannula O2 Flow Rate 2.0 2.0 2.0 2.0 07/08/20 07/09/20 07/09/20 07/09/20 23:23 03:23 03:27 03:29 Temp 97.6 97.6 97.6 97.6 Pulse 68 68 Resp 16 16 18 18 B/P (MAP) 123/68 (86) 129/73 (91) Pulse Ox 95 97 95 95 O2 Delivery Room Air Room Air Nasal Cannula Nasal Cannula O2 Flow Rate 2.0 2.0 07/09/20 07/09/20 05:08 05:08 Resp 17 17 Pulse Ox 95 95 O2 Delivery Nasal Cannula Nasal Cannula O2 Flow Rate 2.0 2.0 Intake and Output 07/08/20 07/08/20 07/09/20 15:00 23:00 07:00 Intake Total 500 ml 240 ml Output Total 450 ml 700 ml Balance -450 ml 500 ml -460 ml Justifications for Admission Other Justification JIM MAI MD Jul 09, 2020 08:15
[2020-07-09] MEDS: FAMOTIDINE 20 MG/2 ML VIAL IVP SCH ×2 (08:34→20:30)
[2020-07-09] MEDS: ASPIRIN 325 MG TABLET PO SCH (08:35)
[2020-07-09] MEDS: TAMSULOSIN 0.4 MG CAP.ER.24H. PO SCH (08:35)
[2020-07-09] MEDS: ELECTROLYTE (ICU) PROTOCOL. MC SCH (09:00)
[2020-07-09] MEDS: IV NORMAL SALINE 1000ML BAG 1,000 ML IV SCH ×2 (09:06→22:26)
[2020-07-09 11:00] VITALS: BP 122/73
--- NOTE | 2020-07-09 11:27 | PDOC ---
PULMONARY PROGRESS NOTES DATE: 07/09/20 TIME: 11:27 Subjective Patient not short of air. Having difficulty with urinary retention. Comments PAST MEDICAL HISTORY Cardiovascular: Other (PAD) Pulmonary: No pertinent hx CENTRAL NERVOUS SYSTEM: Periperal neuropathy GI: No pertinent hx Heme/Onc: No pertinent hx Hepatobiliary: No pertinent hx Psych: No pertinent hx Musculoskeletal: Osteoarthritis Rheumatologic: No pertinent hx Infectious disease: No pertinent hx ENT: No pertinent hx Renal/: No pertinent hx Endocrine: No pertinent hx Dermatology: No pertinent hx PAST SURGICAL HISTORY Past Surgical History: Other (bilateral iliac stents in 2011) Vitals Vital Signs Date Time Temp Pulse Resp B/P (MAP) Pulse Ox O2 Delivery O2 Flow Rate FiO2 07/09/20 09:35 95 Nasal Cannula 2.0 07/09/20 07:00 98.4 72 20 133/70 (91) 98.4 ROS: No Nausea, No Chest Pain, No Abdominal Pain, No Increase Cough General: Alert Lungs: Crackles Cardiovascular: S1, S2 Abdomen: Other (Dressing in place) Neuro Exam: Alert Extremities: No Edema Skin: Warm, Dry Labs Laboratory Tests Test 07/08/20 06:00 White Blood Count 8.9 x10^3/uL (4.0-11.0) Red Blood Count 3.02 x10^6/uL (4.30-5.70) Hemoglobin 10.0 g/dL (13.0-17.5) Hematocrit 30.2 % (39.0-53.0) Mean Corpuscular Volume 100 fL (79-100) Mean Corpuscular Hemoglobin 33 pg (25-35) Mean Corpuscular Hemoglobin Concent 33 g/dL (31-37) Red Cell Distribution Width 14.8 % (11.5-14.5) Platelet Count 118 x10^3/uL (140-400) Neutrophils (%) (Auto) 65 % (31-73) Lymphocytes (%) (Auto) 21 % (24-48) Monocytes (%) (Auto) 13 % (0-9) Eosinophils (%) (Auto) 1 % (0-3) Basophils (%) (Auto) 0 % (0-3) Neutrophils # (Auto) 5.7 x10^3/uL (1.8-7.7) Lymphocytes # (Auto) 1.8 x10^3/uL (1.0-4.8) Monocytes # (Auto) 1.2 x10^3/uL (0.0-1.1) Eosinophils # (Auto) 0.1 x10^3/uL (0.0-0.7) Basophils # (Auto) 0.0 x10^3/uL (0.0-0.2) Sodium Level 141 mmol/L (136-145) Potassium Level 3.5 mmol/L (3.5-5.1) Chloride Level 109 mmol/L (98-107) Carbon Dioxide Level 26 mmol/L (21-32) Anion Gap 6 (6-14) Blood Urea Nitrogen 13 mg/dL (8-26) Creatinine 0.7 mg/dL (0.7-1.3) Estimated GFR (Cockcroft-Gault) 115.8 Glucose Level 106 mg/dL (70-99) Calcium Level 7.4 mg/dL (8.5-10.1) Medications Active Scripts Medications Dose Route/Sig Max Daily Dose Days Date Category Aspirin 325 Mg Tablet 325 Mg PO DAILYWBKFT 30 06/21/20 Rx Atorvastatin Calcium 20 Mg Tablet 40 Mg PO QHS 30 06/21/20 Rx Impression . IMPRESSION: 1. Status post aortobifemoral bypass. 2. Status post right femoral endarterectomy. 3. Reimplantation of an inferior mesenteric artery. 4. Chronic obstructive pulmonary disease. 5. Tobacco dependence, in remission. 6. Peripheral arterial disease. 7. Expected dyspnea secondary to recent surgery. 8. Urinary retention OPERATIONS PERFORMED: 1. Infrarenal abdominal aortic to bifemoral artery bypass graft using a 16 x 8 mm Propaten PTFE graft. 2. Suprarenal clamping above the right renal artery and the left accessory renal artery was required for this bypass. 3. Right common femoral artery endarterectomy. 4. Reimplantation of the inferior mesenteric artery into the side of the PTFE graft. 5. The left groin was a redo exposure. Plan . Respiratory status compensated See below We will sign off please call if needed DVT prophylaxis per surgery. PT/OT increase activity D/W PACHECO AGUILERA MD Jul 09, 2020 11:27
[2020-07-09 15:00] VITALS: BP 117/69
--- NOTE | 2020-07-09 15:13 | NUR ---
SS following up with discharge planning. SS reviewed pt chart and discussed with pt RN. Pt is currently requiring oxygen at two liters nasal canula. COVID19 negative. PT/OT recommended home. Pt self pay. Discharge plan is to home when medically ready. SS will continue to follow for discharge planning.
[2020-07-09] MEDS ORDERED: MINERAL OIL/PETROLATUM,WHITE OPHTH OINT 3.5GM TUBE. OU PRN (18:00)
[2020-07-09 19:00] VITALS: BP 125/73
[2020-07-09] MEDS: ONDANSETRON PF 4 MG/2 ML VIAL. IVP PRN (20:32)
[2020-07-09] MEDS ORDERED: ATORVASTATIN CALCIUM 40 MG TABLET. PO SCH (21:00)
[2020-07-09 23:00] VITALS: BP 119/75
[2020-07-10 02:54] VITALS: BP 118/64
[2020-07-10] MEDS: oxyCODONE/APAP 5/325 1 TAB TABLET PO PRN ×3 (03:13→14:23)
[2020-07-10] MEDS: ONDANSETRON PF 4 MG/2 ML VIAL. IVP PRN ×2 (03:16→14:23)
[2020-07-10 07:39] VITALS: BP 127/76
[2020-07-10] MEDS: ELECTROLYTE (ICU) PROTOCOL. MC SCH (07:58)
[2020-07-10] MEDS: FAMOTIDINE 20 MG/2 ML VIAL IVP SCH (08:01)
[2020-07-10] MEDS: ASPIRIN 325 MG TABLET PO SCH (08:01)
[2020-07-10] MEDS: TAMSULOSIN 0.4 MG CAP.ER.24H. PO SCH (08:01)
--- NOTE | 2020-07-10 08:59 | DISCH ---
DISCHARGE INSTRUCTIONS Condition on Discharge Condition on Discharge: Stable Activity After Discharge Activity Instructions for Disc: Activity as tolerated Other activity instructions: Keep scrotum elevated Lifting Instructions after Dis: No heavy lifting, No pulling or pushing, Do not lift >10 pounds Driving Instructions after Dis: Do not drive (while taking pain medicines) Diet after Discharge Diet after Discharge: Regular Liquid Texture: Thin Liquid Wound Incision Care Wound/Incision Care: May get incision wet, Other, see below Other wound/incision instructi: Leave steri strips in place until they fall off. Checks after Discharge Checks after discharge: Check blood press - daily Contacting the [facility] after DC Call your doctor for: If your condition worsens (Fever greater than 100, drainage, redness, swelling from incisions) Follow-Up Follow up with: 08/02/2020 at 11:[address] Kahn, [id number], [place] [id number] Follow Up With: [phone] Treatment/Equipment after DC Adaptive Equipment Issued: None JUSTINE ROMAN Jul 10, 2020 08:59
[2020-07-10] MEDS ORDERED: DOCUSATE SODIUM 100 MG CAPSULE. PO SCH (09:00)
[2020-07-10] MEDS ORDERED: POLYETHYLENE GLYCOL 3350 17 GM PACKET. PO SCH (09:00)
[2020-07-10] MEDS ORDERED: POLY17PO52 PO (09:04)
[2020-07-10] MEDS ORDERED: OXYC1TAB15 PO (09:04)
[2020-07-10] MEDS ORDERED: TAMS0.4C97 PO (09:04)
[2020-07-10] MEDS ORDERED: DOCU-153 PO (09:04)
--- NOTE | 2020-07-10 09:35 | PDOC ---
PROGRESS NOTES Date of Service DATE: 07/10/20 TIME: 09:31 Subjective Subjective Patient up ambulating in halls this morning. His only complaints scrotal edema with need for replacement of Wakefield yesterday evening. Good urine output. He reports eating well, denies nausea, vomiting, diarrhea, abdominal pain. Having 2 bowel movements that were hard since surgery, he has not been taking any bowel regimen. He reports his legs and feet feel "great". Objective Objective Vital Signs Date Time Temp Pulse Resp B/P (MAP) Pulse Ox O2 Delivery O2 Flow Rate FiO2 07/10/20 07:39 98.6 69 19 127/76 (93) 96 Room Air 98.6 07/09/20 21:30 2.0 Intake and Output 07/10/20 07:00 Intake Total 925 ml Output Total 1275 ml Balance -350 ml Intake Oral 925 ml Output Urine Total 1275 ml Physical Exam Physical Exam Awake, alert, ambulating in halls Vital signs stable Abdomen soft, nontender, nondistended, incision clean, dry, intact with minimal incisional erythema Bilateral groin incisions clean, dry intact with Steri-Strips in place no erythema or swelling. Moderate scrotal edema, Wakefield catheter in place Bilateral feet warm Diagnosis DIAGNOSIS Status post aortobifemoral bypass Assessment Assessment Status post aortobifemoral bypassstable Urinary retention Plan Plan of Care Stable following ABF, remove Wakefield this morning and do voiding trial. If he is able to void without problems this morning/afternoon he can discharge this evening to home. He was started on Flomax yesterday, to continue at discharge. Will be started on bowel regimen also to continue on discharge. Elevate scrotum when at rest, sitting and ambulating. Discussed all postop care instructions with patient verbally, when to notify physician. He will follow up with us as scheduled. Comment Review of Relevant I have reviewed the following items mai (where applicable) has been applied. Medications Current Medications Heparin Sodium (Porcine) 5000 unit/Sodium Chloride 505 ml @ 505 mls/hr 1X ONCE IRR Last administered on 07/04/20at 08:33; Start 07/04/20 at 06:00; Stop 07/04/20 at 06:59; Status DC Fentanyl Citrate (Fentanyl 2ml Vial) 25 mcg PRN Q5MIN PRN IVP MILD PAIN 1-3; Start 07/04/20 at 06:00; Stop 07/05/20 at 05:59; Status DC Fentanyl Citrate (Fentanyl 2ml Vial) 50 mcg PRN Q5MIN PRN IVP MODERATE PAIN 4- 6; Start 07/04/20 at 06:00; Stop 07/05/20 at 05:59; Status DC Morphine Sulfate (Morphine Sulfate) 1 mg PRN Q10MIN PRN IVP SEVERE PAIN 7-10; Start 07/04/20 at 06:00; Stop 07/05/20 at 05:59; Status DC Ringer's Solution 1,000 ml @ 30 mls/hr Q24H IV Last administered on 07/04/20at 06:49; Start 07/04/20 at 06:00; Stop 07/04/20 at 17:59; Status DC Hydromorphone HCl (Dilaudid) 0.5 mg PRN Q10MIN PRN IVP SEVERE PAIN 7-10, 2nd CHOICE; Start 07/04/20 at 06:00; Stop 07/05/20 at 05:59; Status DC Prochlorperazine Edisylate (Compazine) 5 mg PACU PRN PRN IVP NAUSEA, MRX1; Start 07/04/20 at 06:00; Stop 07/05/20 at 05:59; Status DC Cefazolin Sodium/ Dextrose 50 ml @ 100 mls/hr 1X ONCE IV Last administered on 07/04/20at 08:00; Start 07/04/20 at 06:00; Stop 07/04/20 at 06:29; Status DC Propofol (Diprivan) 200 mg STK-MED ONCE IV ; Start 07/04/20 at 06:48; Stop 07/04/20 at 06:48; Status DC Lidocaine HCl (Lidocaine Pf 2% Vial) 5 ml STK-MED ONCE .ROUTE ; Start 07/04/20 at 06:48; Stop 07/04/20 at 06:48; Status DC Fentanyl Citrate (Fentanyl 5ml Vial) 250 mcg STK-MED ONCE .ROUTE ; Start 07/04/20 at 06:49; Stop 07/04/20 at 06:50; Status DC Rocuronium Guthrie (Zemuron) 50 mg STK-MED ONCE .ROUTE ; Start 07/04/20 at 06:50; Stop 07/04/20 at 06:50; Status DC Midazolam HCl (Versed) 2 mg STK-MED ONCE .ROUTE ; Start 07/04/20 at 07:02; Stop 07/04/20 at 07:02; Status DC Cellulose (Surgicel Fibrillar 1x2) 1 each STK-MED ONCE .ROUTE Last administered on 07/04/20at 08:33; Start 07/04/20 at 07:05; Stop 07/04/20 at 07:05; Status DC Cellulose (Surgicel Fibrillar 1x2) 1 each STK-MED ONCE .ROUTE Last administered on 07/04/20at 08:33; Start 07/04/20 at 07:05; Stop 07/04/20 at 07:05; Status DC Midazolam HCl (Versed) 2 mg STK-MED ONCE .ROUTE ; Start 07/04/20 at 07:10; Stop 07/04/20 at 07:11; Status DC Lidocaine HCl (Xylocaine-Mpf 1% 2ml Vial) 2 ml STK-MED ONCE .ROUTE ; Start 07/04/20 at 07:10; Stop 07/04/20 at 07:11; Status DC Ropivacaine (Naropin 0.5%) 20 ml STK-MED ONCE .ROUTE ; Start 07/04/20 at 07:10; Stop 07/04/20 at 07:11; Status DC Heparin Sodium (Porcine) (Heparin Sodium) 30,000 unit STK-MED ONCE .ROUTE ; Start 07/04/20 at 07:15; Stop 07/04/20 at 07:16; Status DC Ropivacaine (Naropin 0.5%) 20 ml STK-MED ONCE .ROUTE ; Start 07/04/20 at 07:23; Stop 07/04/20 at 07:24; Status DC Cefazolin Sodium (Ancef) 1 gm Q8H IVP ; Start 07/04/20 at 18:00; Stop 07/05/20 at 02:01; Status Cancel Famotidine (Pepcid Vial) 20 mg BID IVP Last administered on 07/10/20at 08:01; Start 07/04/20 at 21:00 Info (Icu Electrolyte Protocol) 1 ea DAILY MC Last administered on 07/07/20at 09:00; Start 07/05/20 at 09:00 Naloxone HCl (Narcan) 0.1 mg PRN Q2MIN PRN IV SEE ADMIN INSTRUCTIONS; Start 07/04/20 at 07:30; Status Cancel Sodium Chloride (Normal Saline Flush) 3 ml QSHIFT PRN IV AFTER MEDS AND BLOOD DRAWS; Start 07/04/20 at 07:30 Sodium Chloride 1,000 ml @ 75 mls/hr [id number] IV Last administered on 07/08/20at 05:35; Start 07/04/20 at 07:30 Naloxone HCl (Narcan) 0.4 mg PRN Q2MIN PRN IV SEE INSTRUCTIONS; Start 07/04/20 at 07:30 Sodium Chloride 1,000 ml @ 25 mls/hr Q24H IV ; Start 07/04/20 at 07:30; Stop 07/04/20 at 17:58; Status DC Morphine Sulfate (Morphine Sulfate) 2 mg PRN Q1HR PRN IV MILD PAIN 1-3 Last administered on 07/08/20at 12:31; Start 07/04/20 at 07:30 Oxycodone/ Acetaminophen (Percocet 5/325) 1 tab PRN Q4HRS PRN PO MILD PAIN, 1ST CHOICE Last administered on 07/08/20at 12:31; Start 07/04/20 at 07:30 Oxycodone/ Acetaminophen (Percocet 5/325) 2 tab PRN Q4HRS PRN PO MODERATE PAIN, SEVERE PAIN Last administered on 07/10/20at 08:02; Start 07/04/20 at 07:30 Ondansetron HCl (Zofran) 4 mg PRN Q6HRS PRN IVP NAUESA, 1ST CHOICE Last administered on 07/10/20at 03:16; Start 07/04/20 at 07:30 Prochlorperazine Edisylate (Compazine) 5 mg PRN Q6HRS PRN IV N/V, 2nd Choice, MR X1; Start 07/04/20 at 07:30 Hydralazine HCl (Apresoline Inj) 10 mg PRN Q4HRS PRN IVP ELEVATED BP, SEE COMMENTS; Start 07/04/20 at 07:30 Labetalol HCl (Normodyne Iv Push) 10 mg PRN Q2HR PRN IVP HYPERTENSION-2ND CHOICE; Start 07/04/20 at 07:30 Phenylephrine HCl (Jeff-Synephrine Inj) 10 mg STK-MED ONCE .ROUTE ; Start 07/04/20 at 08:13; Stop 07/04/20 at 08:14; Status DC Albumin Human 500 ml @ As Directed STK-MED ONCE IV ; Start 07/04/20 at 08:13; Stop 07/04/20 at 08:14; Status DC Sevoflurane (Ultane) 90 ml STK-MED ONCE IH ; Start 07/04/20 at 08:13; Stop 07/04/20 at 08:14; Status DC Rocuronium Guthrie (Zemuron) 50 mg STK-MED ONCE .ROUTE ; Start 07/04/20 at 08:34; Stop 07/04/20 at 08:34; Status DC Sodium Chloride 35 ml/Fentanyl Citrate 250 mcg/ Ropivacaine 10 ml/ Epidural Dosage Infused (Pha) 50 ml @ 0 mls/hr CONT PRN EPID SEE PROTOCOL TABLE Last administered on 07/08/20at 06:40; Start 07/04/20 at 10:00 Glycopyrrolate (Robinul) 1 mg STK-MED ONCE .ROUTE ; Start 07/04/20 at 09:06; Stop 07/04/20 at 09:07; Status DC Fentanyl Citrate (Fentanyl 5ml Vial) 250 mcg STK-MED ONCE .ROUTE ; Start 07/04/20 at 09:17; Stop 07/04/20 at 09:18; Status DC Rocuronium Guthrie (Zemuron) 50 mg STK-MED ONCE .ROUTE ; Start 07/04/20 at 10:37; Stop 07/04/20 at 10:38; Status DC Cellulose (Surgicel Fibrillar 1x2) 1 each STK-MED ONCE .ROUTE Last administered on 07/04/20at 08:33; Start 07/04/20 at 10:52; Stop 07/04/20 at 10:52; Status DC Cellulose (Surgicel Fibrillar 1x2) 1 each STK-MED ONCE .ROUTE Last administered on 07/04/20at 08:33; Start 07/04/20 at 10:52; Stop 07/04/20 at 10:53; Status DC Neostigmine Guthrie (Neostigmine Methylsulfate) 5 mg STK-MED ONCE .ROUTE ; Start 07/04/20 at 11:20; Stop 07/04/20 at 11:20; Status DC Protamine Sulfate (Protamine) 50 mg STK-MED ONCE IV ; Start 07/04/20 at 11:27; Stop 07/04/20 at 11:27; Status DC Heparin Sodium (Porcine) (Heparin Sodium) 10,000 unit STK-MED ONCE .ROUTE ; Start 07/04/20 at 11:42; Stop 07/04/20 at 11:42; Status DC Cellulose (Surgicel Fibrillar 1x2) 3 each STK-MED ONCE .ROUTE Last administered on 07/04/20at 08:33; Start 07/04/20 at 12:03; Stop 07/04/20 at 12:03; Status DC Protamine Sulfate (Protamine) 50 mg STK-MED ONCE IV ; Start 07/04/20 at 12:04; Stop 07/04/20 at 12:04; Status DC Cellulose (Surgicel Fibrillar 1x2) 5 each STK-MED ONCE .ROUTE Last administered on 07/04/20at 08:33; Start 07/04/20 at 12:32; Stop 07/04/20 at 12:32; Status DC Aspirin (Tc Aspirin) 325 mg DAILY ONCE PO ; Start 07/05/20 at 09:00; Stop 07/05/20 at 09:01; Status DC Meperidine HCl (Demerol) 12.5 mg 1X ONCE IV Last administered on 07/04/20at 14: 40; Start 07/04/20 at 14:45; Stop 07/04/20 at 14:46; Status DC Meperidine HCl (Demerol) 25 mg STK-MED ONCE .ROUTE ; Start 07/04/20 at 14:29; Stop 07/04/20 at 14:30; Status DC Cefazolin Sodium (Ancef) 1 gm STK-MED ONCE IVP ; Start 07/04/20 at 12:02; Stop 07/04/20 at 18:00; Status DC Cefazolin Sodium (Ancef) 1 gm Q8H IVP Last administered on 07/05/20at 03:40; Start 07/04/20 at 20:00; Stop 07/05/20 at 04:01; Status DC Albuterol Sulfate (Ventolin Neb Soln) 2.5 mg PRN Q6HRS PRN NEB SHORTNESS OF BREATH; Start 07/05/20 at 11:45; Status UNV Albuterol Sulfate (Ventolin Neb Soln) 2.5 mg PRN Q6HRS PRN NEB SHORTNESS OF BREATH; Start 07/05/20 at 11:45 Aspirin (Aspirin Rectal Supp) 300 mg 1X ONCE OR Last administered on 07/05/20at 12:49; Start 07/05/20 at 12:30; Stop 07/05/20 at 12:31; Status DC Calcium Gluconate 1000 mg/Sodium Chloride 110 ml @ 220 mls/hr 1X ONCE IV Last administered on 07/05/20at 12:56; Start 07/05/20 at 12:30; Stop 07/05/20 at 12:59; Status DC Nicotine (Nicoderm Cq 14mg) 1 patch PRN DAILY PRN TD SMOKING CESSATION Last administered on 07/08/20at 08:51; Start 07/07/20 at 13:45 Morphine Sulfate (Morphine Sulfate) 4 mg PRN Q1HR PRN IV MODERATE PAIN 4-6 Last administered on 07/09/20at 08:36; Start 07/08/20 at 13:45 Morphine Sulfate (Morphine Sulfate) 6 mg PRN Q1HR PRN IV SEVERE PAIN 7-10 Last administered on 07/08/20at 14:02; Start 07/08/20 at 13:45 Aspirin (Tc Aspirin) 325 mg DAILYWBKFT PO Last administered on 07/10/20at 08:01; Start 07/09/20 at 09:00 Atorvastatin Calcium (Lipitor) 40 mg QHS PO Last administered on 07/09/20at 20:29; Start 07/09/20 at 21:00 Tamsulosin HCl (Flomax) 0.4 mg DAILY PO Last administered on 07/10/20at 08:01; Start 07/09/20 at 09:00 Multi-Ingred Cream/Lotion/Oil/ Oint (Artificial Tears Eye Ointment) 1 enrico PRN Q1HR PRN OU DRY EYE; Start 07/09/20 at 18:00 Docusate Sodium (Colace) 100 mg DAILY PO Last administered on 07/10/20at 09:08; Start 07/10/20 at 09:00 Polyethylene Glycol (miraLAX PACKET) 17 gm DAILY PO Last administered on 07/10/20at 09:08; Start 07/10/20 at 09:00 Active Scripts Active Polyethylene Glycol 3350 17 Gm Powd.pack 17 Gm PO DAILY 30 Days Dok (Docusate Sodium) 100 Mg Capsule 100 Mg PO DAILY 30 Days Flomax (Tamsulosin Hcl) 0.4 Mg Cap.er.24h 0.4 Mg PO DAILY 30 Days Aspirin 325 Mg Tablet 325 Mg PO DAILYWBKFT 30 Days Atorvastatin Calcium 20 Mg Tablet 40 Mg PO QHS 30 Days Vitals/I & O Vital Sign - Last 24 Hours 07/09/20 07/09/20 07/09/20 07/09/20 09:35 11:00 15:00 19:00 Temp 98.1 98.4 99.1 98.1 98.4 99.1 Pulse 62 69 80 Resp 18 18 20 B/P (MAP) 122/73 (89) 117/69 (85) 125/73 (90) Pulse Ox 95 95 93 96 O2 Delivery Nasal Cannula Room Air Room Air Room Air O2 Flow Rate 2.0 07/09/20 07/09/20 07/09/20 07/09/20 20:00 20:30 21:30 23:00 Temp 99.0 99.0 Pulse 73 Resp 19 B/P (MAP) 119/75 (90) Pulse Ox 96 96 95 O2 Delivery Nasal Cannula Nasal Cannula Nasal Cannula Room Air O2 Flow Rate 2.0 2.0 2.0 07/10/20 07/10/20 07/10/20 07/10/20 02:54 03:13 04:20 07:39 Temp 98.6 98.6 98.6 98.6 Pulse 69 69 Resp 19 19 B/P (MAP) 118/64 (82) 127/76 (93) Pulse Ox 95 95 95 96 O2 Delivery Room Air Room Air Nasal Cannula Room Air Intake and Output 07/09/20 07/09/20 07/10/20 15:00 23:00 07:00 Intake Total 425 ml 200 ml 300 ml Output Total 525 ml 750 ml Balance -100 ml 200 ml -450 ml Justifications for Admission Other Justification JUSTINE ROMAN Jul 10, 2020 09:35
[2020-07-10 10:33] VITALS: BP 134/78
[2020-07-10] MEDS: IV NORMAL SALINE 1000ML BAG 1,000 ML IV SCH (11:46)
--- NOTE | 2020-07-10 12:19 | NUR ---
SS following up with discharge planning. SS reviewed pt chart and discussed with pt RN. Pt is currently on room air. COVID19 negative. PT recommended home. Discharge order on the chart for home with self care.
[2020-07-10 14:48] VITALS: BP 118/71
--- NOTE | 2020-07-10 15:20 | NUR ---
Discharge: Teaching verbal and written. Reviewed surgery precautions, urinary retention, constipation, ect. Patient verbalized understanding. 4 prescriptions given to patient. All belongings without complications. at beside.
--- NOTE | 2020-07-10 15:33 | NUR ---
Discharge: patient assisted off of unit via wheelchair accompanied by YULI Greene and patients
--- NOTE | 2020-07-31 17:54 | DS ---
DATE OF DISCHARGE: 07/10/2020 DISCHARGE DIAGNOSES: 1. Severe peripheral arterial disease. 2. Symptomatic disabling claudication in bilateral lower extremities. 3. Recent tobacco abuse. 4. Postoperative urinary retention. PROCEDURES: 1. Infrarenal abdominal aortic to bifemoral artery bypass graft using a 16 x 8 mm Propaten PTFE graft. 2. Suprarenal clamping above the right renal artery and a left accessory renal artery was required for this bypass. 3. Right common femoral artery endarterectomy. 4. Reimplantation of the inferior mesenteric artery on to the side of the PTFE graft. 5. The left groin was a redo exposure. CONSULTANTS: Vicki Castelan MD BRIEF HISTORY: The patient is a 59-year-old male with a long history of severe peripheral arterial disease, who has previously undergone a left femoral endarterectomy with left leg thrombectomy and bilateral iliac stenting. He has recently presented to the hospital with ischemic rest pain to his bilateral lower extremities. 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 He has severe disease throughout his right common and external iliac artery as well. He also has significant atherosclerotic disease of the right common femoral artery. The thrombosis of the abdominal aorta went all the way up to the level of the right renal artery. Recommendation has been made for an aortic to bifemoral artery bypass graft. The patient has been seen preoperatively by Cardiology Medicine and has been cleared to proceed with this operation. He has recently stopped smoking within the last few weeks prior to surgery to help reduce his potential risk for pulmonary complications. The patient was admitted at this time to undergo an elective aortic to bifemoral artery bypass graft surgery. HOSPITAL COURSE: The patient underwent the aforementioned operative procedure. The patient's postoperative course was relatively uncomplicated, although he did experience urinary retention after the Wakefield catheter was removed, requiring the catheter to be replaced. Pulmonary Medicine was consulted to assist with oversight of the patient's pulmonary status as well as critical care management while recovering in the Intensive Care Unit. On postoperative day #1, the patient's vital signs were stable and he was afebrile. He had excellent urine output and his laboratory data was stable. He will remain n.p.o. until abdominal function returns. The patient will be transferred out to the step-down unit. On postoperative day #2, the patient continued to remain quite stable. His abdomen was soft and nondistended. The nasogastric tube was removed. He had intact distal pulses and was without motor or sensory deficits. On postoperative day #3, the patient had a very large bowel movement, which indicated return of bowel function. He was started on clear liquid diet and allowed to advance as tolerated. The patient has begun mobilization and has experienced no recurrent claudication symptoms to his lower extremities. On postoperative day #4, the patient's vital signs and laboratory data continued to remain quite stable. The patient's epidural catheter was removed and he was started on oral pain medication. The patient's Wakefield catheter was removed as well. Unfortunately, during the night, the patient was experiencing urinary retention. The Wakefield catheter had to be replaced. On postoperative day #5, the patient was started on Flomax therapy in anticipation for resolve of urinary retention. By postoperative day #6, the patient continued to remain quite stable with stable vital signs, intact surgical incisions, intact peripheral pulses and good urinary output. Wakefield catheter was removed and throughout the day, the patient was able to successfully urinate without sequela. The patient was most tolerant of his diet and activity progression. He stated he had adequate pain control. The patient was deemed stable for discharge to home today. DISCHARGE INSTRUCTIONS: 1. Please refer to the medication reconciliation list. 2. The patient has been scheduled to follow up with Dr. Kahn in 3-4 weeks. 3. The patient was educated on the importance of remaining compliant on his medication regimen, which includes antiplatelet therapy, statin therapy and the initiation of Flomax therapy for urinary retention symptoms. The patient was educated on the importance of smoking cessation, especially in light of his severe vascular disease. This will continue to be followed up in the outpatient setting when he returns to see Dr. Kahn in the office. JASWANT KAHN MD DR: RAVI/nohelia JOB#: [id number] / [id number]
[2020-08-24] MEDS ORDERED: LACT1CAP19 PO (13:23)
[2020-08-24] MEDS ORDERED: TRAM50TA PO (17:48)
== END 2020-07-10 15:30 | disposition home or self-care (01) | DRG 271 ==
LOC: OPSVCIP 07-04 05:53 → 1 WEST ICU 07-04 16:00 → 2 NORTH 07-05 16:25
PROVIDERS: ADMIT Surgery Vascular Surgery; ATTEND Surgery Vascular Surgery
PROC: 04CK0ZZ Extirpation of Matter from Right Femoral Artery, Open Approach (ICD-10-PCS; 2020-07-04)
PROC: 04SB0ZZ Reposition Inferior Mesenteric Artery, Open Approach (ICD-10-PCS; 2020-07-04)
PROC: 041 Lower Arteries, Bypass (ICD-10-PCS; principal; 2020-07-04 07:30)
PROC: 02HV33Z Insertion of Infusion Device into Superior Vena Cava, Percutaneous Approach (ICD-10-PCS; 2020-07-05)
DX: I70.201 Unspecified atherosclerosis of native arteries of extremities, right leg (principal); I74.5 Embolism and thrombosis of iliac artery; E46 Unspecified protein-calorie malnutrition; F17.201 Nicotine dependence, unspecified, in remission; I10 Essential (primary) hypertension; I71.9 Aortic aneurysm of unspecified site, without rupture; J44.9 Chronic obstructive pulmonary disease, unspecified; G62.9 Polyneuropathy, unspecified; M19.90 Unspecified osteoarthritis, unspecified site; Z68.23 Body mass index [BMI] 23.0-23.9, adult; Z88.0 Allergy status to penicillin
CPT/HCPCS: 36415; 71045; 80048; 80053; 83735; 85025; 85027; 85610; 85730; 86850; 86900; 86901; 86920; 88305; A4223; C1757; J0610; J0690; J1644; J2175; J2250; J2270; J2370; J2405; J2704; J2710; J2720; J2795; J3010; J3490; J7030; J7040; J7120; P9045; 97110-GP; 97116-GP; 97530-GO; 97530-GP; G0378

== ENCOUNTER → 2020-06-29 | Outpatient (CLI) | payer SELFPAY ==
[2020-06-21 11:00] VITALS: BP 116/76
== END ==
LOC: LAB 11:09
PROVIDERS: ATTEND Surgery Vascular Surgery
DX: Z01.812 Encounter for preprocedural laboratory examination (principal); Z20.822 Contact with and (suspected) exposure to COVID-19
CPT/HCPCS: U0003